=== PATIENT | female | born 1955 | race Caucasian/White ===

== ENCOUNTER → 2020-01-12 16:40 | Outpatient (CLI) | payer OTHER, SELFPAY ==
--- NOTE | ~2020-01-12 | MM_ITS ---
EXAMINATION: MM screening patricia BI w [facility] HISTORY: Screening TECHNIQUE: Craniocaudal and mediolateral oblique 3-D tomosynthesis images were obtained and synthetic 2-D images were generated. CAD analysis was submitted and interpreted. COMPARISON: Comparison to multiple prior studies sequentially, with oldest reviewed study dated 01/31. BREAST PARENCHYMAL COMPOSITION: There are scattered areas of fibroglandular density. FINDINGS: There is no evidence of suspicious mass, calcification, or architectural distortion to sugg est malignancy in either breast. There has been no suspicious interval change. IMPRESSION: 1. No mammographic evidence of malignancy. 2. Recommend routine screening mammography in one year. BI-RADS Category 1: Negative Reviewed, dictated and finalized at location A.
== END ==
PROVIDERS: PCP Family Medicine; Visit Provider Obstetrics & Gynecology Gynecology
DX: Z12.31 Encounter for screening mammogram for malignant neoplasm of breast (principal)
CPT/HCPCS: 77063; 77067

== ENCOUNTER 2021-10-11 16:35 | Inpatient (IN) | payer OTHER, SELFPAY ==
--- NOTE | ~2021-10-11 | XR_ITS ---
EXAMINATION: XR chest 2V 10/11/2021 18:25 INDICATION: Weakness and dyspnea PROCEDURE: 2 view chest COMPARISON: No prior studies for comparison. FINDINGS: The lungs are clear. The cardiomediastinal silhouette is within normal limits. There are no pleural effusions. There is no pneumothorax suspected. IMPRESSION: 1: NO ACUTE CARDIOPULMONARY DISEASE. Reviewed, dictated and finalized at location A.
--- NOTE | ~2021-10-11 | CT_ITS ---
EXAMINATION: CT abdomen pelvis w con DATE: 10/11/2021 21:48 INDICATION: Left back pain. Nausea and chills. Diarrhea. Diverticulosis. TECHNIQUE: Computed tomography (CT) of the abdomen and pelvis was performed with 100 cc Omnipaque 300 intravenous contrast. The dose-length product was 440.99 mGy-cm. Automated exposure control and iter ative reconstruction technique were employed. COMPARISON: CT dated 07/03/2014. FINDINGS: Lung bases are unremarkable. Heart size is normal. No significant pleural or pericardial ef fusion. Mild atherosclerosis of the aorta without aneurysm. No lymphadenopathy. Fatty infiltration of the liver. Gallbladder is present. The spleen, pancreas, adrenal glands are unr emarkable. There is focal cortical thinning of the left kidney posteriorly. There are small low-densi ty lesions in both kidneys, most likely benign cysts. Nonobstructive bowel gas pattern. Colonic diver ticulosis without evidence for diverticulitis. Normal appendix. No free air or free fluid. There is l umbar spondylosis with grade 1 degenerative spondylolisthesis at L4-5. IMPRESSION: 1. No acute abdominal abnormality. Reviewed, dictated and finalized at location A.
--- NOTE | ~2021-10-11 | XR_ITS ---
EXAMINATION: XR abdomen/kub 1V DATE: 10/13/2021 12:22 INDICATION: Nausea and vomiting. TECHNIQUE: A supine view of the abdomen was obtained. COMPARISON: CT abdomen and pelvis 10/11/2021 FINDINGS: There are no dilated loops of bowel. There is a small volume of stool in the colon. IMPRESSION: 1. Normal bowel gas pattern. Reviewed, dictated and finalized at location A.
--- NOTE | ~2021-10-11 | CT_ITS ---
EXAMINATION: CT brain wo con DATE: 10/12/2021 13:27 INDICATION: Dizziness. TECHNIQUE: Computed tomography (CT) of the head was performed without intravenous contrast. The mA wa s adjusted according to patient size. Iterative reconstruction technique was employed. The dose-lengt h product was 605.33 mGy-cm. COMPARISON: None FINDINGS: There is no intracranial hemorrhage, acute infarction, or abnormal intracranial mass lesion . The ventricles are normal in size. The orbits are normal. The paranasal sinuses are clear. The mast oid air cells are normal. IMPRESSION: 1. Normal brain. Reviewed, dictated and finalized at location A. IMPRESSION: 1. Normal brain.
--- NOTE | ~2021-10-11 | US_ITS ---
EXAMINATION: US carotid duplex BI DATE: 10/12/2021 12:09 INDICATION: Vertigo TECHNIQUE: Grayscale, color Doppler, and pulsed Doppler images of the cervical carotid arteries were obtained. The degree of vessel stenosis is placed in one of the following categories: normal, <50%, 5 0-69%, >=70% but less than near-occlusion, near-occlusion, or total occlusion. Note that percent sten osis relative to normal distal artery lumen diameter is indirectly measured from velocity measurement s as described by Rashard, et al. Radiology 2003; 229:340-346. COMPARISON: None. FINDINGS: RIGHT: The right common carotid artery (CCA) peak systolic velocity (PSV) is 82 cm/s. The right internal car otid artery (ICA) PSV is 71 cm/s. The right ICA end-diastolic velocity (EDV) is 27 cm/s. The right IC A/CCA PSV ratio is 0.9. Grayscale and color Doppler images yield an estimate of <50% diameter reducti on from plaque in the ICA. The external carotid artery (ECA) PSV is 76 cm/s. There is antegrade flow in the right vertebral artery. LEFT: The left CCA PSV is 121 cm/s. 50-69% stenosis in the left common carotid artery on grayscale imaging. The left ICA PSV is 101 cm/s. The left ICA EDV is 32 cm/s. The left ICA/CCA PSV ratio is 0.8. Graysc kenny and color Doppler images yield an estimate of <50% diameter reduction from plaque in the ICA. The ECA PSV is 68 cm/s. There is antegrade flow in the left vertebral artery. IMPRESSION: 1. <50% stenosis in the right internal carotid artery. 2. <50% stenosis in the left internal carotid artery. 3. 50-69% stenosis in the left common carotid artery. Reviewed, dictated and finalized at location B.
[2021-10-11 17:00] VITALS: BP 98/60; PULSE 54; RESP 14; TEMP 36.9; O2SAT 100
--- NOTE | 2021-10-11 17:45 | PM.IMHP ---
H&P: HPI History of Present Illness Date/Time: 10/11/21 17:45 Chief Complaint: Back pain and weakness Narrative: Patient is 65-year-old female with a past medical history of asthma, CAD, DVT, diverticulosis who presented to the urology office for left-sided flank pain. Patient was a direct admit to us for hypotension. Patient has been moving herself from [address] [place] [address] to [place] however lately she has been having issues where she feels like she is going to pass out and she can not stand or bend over. She went to the ED at [facility] and they had sent her home on Keflex. They did the chest x-ray and a UA which did show an E coli. Patient also stated that it was noted that her systolic blood pressure went below 100. She stated for her blood pressure they gave her 1 bag of fluids. However she was not satisfied with that treatment and followed up with Urology due to the continuous of the back pain. She stated that she drinks lot of water however her appetite has been really liking and she has been very nauseated and dry heaving. She states that she has been using Zofran however that has not been helping. She has had the feelings she is going to pass out and gets very lightheaded and dizzy and then a headache comes on. She has also been having chills and sweats unknown if she has a fever due to the fact that she is moving. She has been a little short of breath and she has had since about of diarrhea. She stated that she has had back issues in the past however this kind of pain is different. She also takes Keflex she states daily for chronic bleeding bladder or chronic UTI. She denies any chest pain. She also states that she feels very weak however she denies any fatigue. She also states that she has urgency or frequency when she urinates. Patient is being admitted as observation to the hospitalist service Review of Systems Review of Systems: All systems reviewed & are unremarkable except as noted in HPI and below [facility] Past Medical History Medical History (Updated 10/11/21 @ 21:25 by ISSA Morgan) Afib Anxiety Asthma CAD (coronary artery disease) Diabetes DVT (deep venous thrombosis) Hyperlipidemia Hypertension Hypothyroidism Renal cyst SVT (supraventricular tachycardia) Surgical History Surgical History (Updated 10/11/21 @ 21:16 by ISSA Morgan) History of cardiac catheterization Status post coronary artery stent placement Family History Family History (Updated 10/11/21 @ 21:18 by ISSA Morgan) Father Acute myocardial infarction Heart disease Hypertension Hyperlipidemia Sibling Carotid artery stenosis Mother Lymphoma Social History Social History Social History: Patient lives on her own with her 1 cat. She wants her knees Holli Miles who is a doctor in [place] to be her surrogate she has 1 sister alive. 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 Gender identity (if verbalized by the patient): Female Sexual Orientation (if Verbalized by the Patient): Straight or Heterosexual Spiritual care concerns: No Agree to blood products: Yes Meds Home Medications and Allergies Home Medications Medication Instructions Recorded Confirmed Type Lactobacillus acidophilus 1 tablet PO DAILY 10/11/21 10/11/21 History albuterol 90 mcg/actuation aerosol 90 mcg inhalation Q4H PRN 10/11/21 10/11/21 History inhaler Shortness Of Breath alprazolam 0.5 mg tablet 0.5 mg PO QHS PRN Anxiety 10/11/21 10/11/21 History aspirin 81 mg tablet,delayed 1 tablet PO DAILY 10/11/21 10/11/21 History release beclomethasone dipropionate 40 2 inh inhalation BID 10/11/21 10/11/21 History mcg
[2021-10-11] MEDS: SODIUM CHLORIDE 0.9% IV 1,000 ML 100 ML IV CONT (18:12)
[2021-10-11 19:10] LABS: Lactic Acid Reflex 1.2 mmol/L (0.7-2.0)
[2021-10-11 19:15] LABS: Alanine Aminotransferase 33 U/L (6-35); Albumin Level 4.4 g/dL (3.5-5.1); Alkaline Phosphatase 54 U/L (38-126); Anion Gap 12 mmol/L (8-16); Aspartate Amino Transferase 45 U/L (14-36); Bilirubin,Total 1.1 mg/dL (0.2-1.3); Blood Urea Nitrogen 30 mg/dL (7-17); Calcium 9.2 mg/dL (8.4-10.2); Carbon Dioxide 23 mmol/L (22-30); Chloride 102 mmol/L (98-107); Estimated Glomerular Filt Rate 41; Glucose 128 mg/dL (65-110); Magnesium 1.9 mg/dL (1.6-2.3); Potassium 2.7 mmol/L (3.4-5.0); Sodium 137 mmol/L (137-145)
[2021-10-11 19:59] VITALS: BMI 26.2
[2021-10-11 20:00] VITALS: BP 107/54; PULSE 57; PULSE 61; RESP 16; TEMP 36.7; O2SAT 99; BMI 26.2
[2021-10-11 20:27] LABS: Appearance Urine Clear (Clear); Bilirubin Urine Negative (Negative); Blood Urine 1+ (Negative); Color Urine Yellow (Yellow); Glucose Urine UA 2+ mg/dL (Negative); Ketones Urine Negative (Negative); Leukocyte Esterase Ur Negative LEU/UL (Negative); Nitrate Urine Negative (Negative); Protein Urine 1+ mg/dL (Negative); Urobilinogen Urine 0.2 mg/dL (<2.0); pH Urine 6.5 (5.0-9.0)
[2021-10-11 20:30] LABS: RBC Urine 0-2 /hpf (0-2); WBC Urine 0-3 /hpf
[2021-10-11 20:34] LABS: Add Urine Microscopic? YES
[2021-10-11] MEDS: POTASSIUM CHLORIDE INJ 40 MEQ in SODIUM CHLORIDE 0.9% IV 500 ML 130 MEQ IVPB (21:59)
[2021-10-11] MEDS: POTASSIUM CHLORIDE 20 MEQ TABLET 40 MEQ PO (22:02)
[2021-10-11] MEDS: methocarbamoL 500 MG TABLET PO (22:32)
[2021-10-11] MEDS: MONTELUKAST SODIUM 10 MG TABLET PO (22:32)
[2021-10-11] MEDS: GABAPENTIN 100 MG CAPSULE PO (22:33)
[2021-10-11 22:57] VITALS: BP 96/51; PULSE 63; RESP 16; TEMP 36.7; O2SAT 96
[2021-10-12] VITALS (18 sets, daily range): BP systolic 78–121; BP diastolic 51–62; PULSE 62–76; RESP 12–20; TEMP 36.1–36.8; O2SAT 96–98; BMI 26.2
[2021-10-12] MEDS: SODIUM CHLORIDE 0.9% IV 1,000 ML 100 ML IV CONT ×3 (05:33→20:26)
[2021-10-12 05:45] LABS: Basophils Absolute Auto 0.1 K/mm3 (0.0-0.1); Basophils Percent Auto 0.9 % (0.2-1.2); Eosinophils Absolute Auto 0.1 K/mm3 (0-0.3); Eosinophils Percent Auto 1.7 % (0-4.4); Hematocrit 37.4 % (37.0-47.0); Hemoglobin 12.7 g/dL (12.0-15.0); Immature Granulocyte Absolute 0.03 K/mm3 (0.00-0.031); Immature Granulocyte Percent A 0.4 % (0-0.5); Lymphocytes Absolute Auto 2.15 K/mm3 (0.9-3.2); Lymphocytes Percent Auto 31.1 % (18.3-44.2); Mean Corpuscular Hemoglobin 32.5 pg (26-34); Mean Corpuscular Volume 95.7 fl (80-100); Mean Platelet Volume 9.7 fl (7.4-10.4); Monocytes Absolute Auto 0.6 K/mm3 (0.1-0.6); Monocytes Percent Auto 8.5 % (2.6-8.5); Neutrophils Percent Auto 57.4 % (45.5-73.1); Platelet Count Result 237 k/mm3 (150-375); Red Blood Count 3.91 M/mm3 (4.2-5.4); Red Cell Distribution Width 13.2 % (11.5-14.5); White Blood Count 6.9 K/mm3 (4.5-10.0)
[2021-10-12 05:58] LABS: Alanine Aminotransferase 29 U/L (6-35); Albumin Level 3.6 g/dL (3.5-5.1); Alkaline Phosphatase 45 U/L (38-126); Anion Gap 5 mmol/L (8-16); Aspartate Amino Transferase 44 U/L (14-36); Bilirubin,Total 0.6 mg/dL (0.2-1.3); Blood Urea Nitrogen 22 mg/dL (7-17); Calcium 8.3 mg/dL (8.4-10.2); Carbon Dioxide 23 mmol/L (22-30); Chloride 109 mmol/L (98-107); Estimated CRCL calculation 42 ml/min; Estimated Glomerular Filt Rate 56; Glucose 107 mg/dL (65-110); Potassium 3.4 mmol/L (3.4-5.0); Sodium 137 mmol/L (137-145)
[2021-10-12] MEDS: LEVOTHYROXINE SODIUM 75 MCG TABLET PO (05:59)
[2021-10-12] MEDS: GABAPENTIN 100 MG CAPSULE PO ×2 (08:06→16:09)
[2021-10-12] MEDS: POTASSIUM CHLORIDE 20 MEQ TABLET 40 MEQ PO (08:07)
[2021-10-12] MEDS: VITAMIN E 400 UNIT CAPSULE PO (08:07)
[2021-10-12] MEDS: ACIDOPHILUS/BULGARICUS CHEWABLE TABLET 1 TABLET PO (08:07)
[2021-10-12] MEDS: ROSUVASTATIN 10 MG TABLET 40 MG PO (08:07)
[2021-10-12] MEDS: valACYclovir HCL 500 MG TABLET PO (08:08)
[2021-10-12] MEDS: LORATADINE 10 MG TABLET PO (08:08)
[2021-10-12] MEDS: methocarbamoL 500 MG TABLET PO ×4 (08:08→20:26)
[2021-10-12] MEDS: ASPIRIN 81 MG ENTERIC TABLET PO (08:08)
[2021-10-12] MEDS: ENOXAPARIN 40 MG/0.4 ML SYRINGE SUB-Q (08:09)
[2021-10-12] MEDS: CHOLECALCIFEROL 1,000 UNITS TABLET 2000 UNITS PO (08:09)
[2021-10-12] MEDS: CLOPIDOGREL BISULFATE 75 MG TABLET PO (08:09)
[2021-10-12] MEDS: FLUTICASONE PROPIONATE 0.05% NA SPR 16 GM BTL (*BKC) 2 SPRAY NASAL (08:55)
--- NOTE | 2021-10-12 10:17 | ECG_ITS ---
Measurements Intervals [place] Rate: 64 P: 44 KS: 172 QRS: 16 QRSD: 96 T: 15 QT: 400 QTc: 413 Interpretive Statements SINUS RHYTHM NORMAL ECG Electronically Signed On 10-12-2021 12:58:52 CDT by Dajuan Gray D.O.
--- NOTE | 2021-10-12 11:16 | PCNSR ---
On 10/12/21, the student, Adela Rick, provided care and completed [facility] documentation on this patient. I have reviewed the student's documentation and agree with the findings.
--- NOTE | 2021-10-12 11:30 | P.PNIM_ITS ---
Progress Note: A&P Assessment and Plan (1) Left flank pain: Code(s): R10.9 - Unspecified abdominal pain Status: Acute Assessment and Plan: * CT of the abdomen pelvis no acute abdominal abnormality * Blood noted in the ua * Consider consulting Urology * Trend urine output (2) UTI (urinary tract infection): Code(s): N39.0 - Urinary tract infection, site not specified Status: Acute Assessment and Plan: * E coli noted to be going in UA from [place] * Ceftriaxone on board * UA from [facility] does not appear infectious * Repeat UA with culture pending * Tailor antibiotics to culture results (3) Hypotension: Code(s): I95.9 - Hypotension, unspecified Status: Acute Assessment and Plan: * Blood pressure 90 systolically * Currently BP is 99/55 * IV fluids given * Sodium chloride at 100 mils per hour * Trend blood pressure * Hold antihypertensives * Adjust therapy as indicated * Orthostatic BP laying 97/51, Sitting 78/52, Standing 82/51 (4) Hypokalemia: Code(s): E87.6 - Hypokalemia Status: Acute Assessment and Plan: * Potassium 3.4 today * 40 p.o. supplement repeated * Trend labs * Supplement is indicated (5) Diabetes: Code(s): E11.9 - Type 2 diabetes mellitus without complications Status: Acute Assessment and Plan: * Current glucose 107 * Accu-Cheks AC and HS * Diabetic diet * Insulin sliding scale * Trend glucose * Adjust therapy as indicated (6) Hypertension: Code(s): I10 - Essential (primary) hypertension Status: Acute Assessment and Plan: * Currently hypotensive * IV fluids * Antihypertensives on hold * Restart antihypertensive when appropriate * Trend blood pressure * Adjust therapy as indicated (7) Hyperlipidemia: Code(s): E78.5 - Hyperlipidemia, unspecified Status: Acute Assessment and Plan: * Continue home rosuvastatin * LFT remain stable at 44/29 (8) CAD (coronary artery disease): Code(s): I25.10 - Atherosclerotic heart disease of [place] coronary artery without angina pectoris Status: Acute Assessment and Plan: * Known coronary artery disease with stent placement * Continue aspirin * Restart plavix at this time with no stones noted * No chest pain noted * Tele monitor (9) Asthma: Code(s): J45.909 - Unspecified asthma, uncomplicated Status: Acute Assessment and Plan: * Continue home medications * Trend respiratory status * Adjust therapy as indicated (10) Orthostatic hypotension: Code(s): I95.1 - Orthostatic hypotension Status: Acute Assessment and Plan: * Blood pressure lying is 97/51, sitting 78/52, standing 82/51 * Continue to hold antihypertensives this time * Continue IV fluids, give 1 L bolus * Consider starting midodrine * Instruct patient about slow position changes * Carotid Dopplers pending * EKG shows sinus rhythm * CT of the brain ordered Time Spent With Patient Time with patient: Greater than 35 minutes Subjective Date/time seen: 10/12/21 113 Interval history: 10/12/211129 Patient stated that she is tired today. She did state that she was eating more and she w
--- NOTE | 2021-10-12 11:30 | PM.IMPN ---
Progress Note: A&P Assessment and Plan (1) Left flank pain: Code(s): R10.9 - Unspecified abdominal pain Status: Acute Assessment and Plan: CT of the abdomen pelvis no acute abdominal abnormality Blood noted in the ua Consider consulting Urology Trend urine output (2) UTI (urinary tract infection): Code(s): N39.0 - Urinary tract infection, site not specified Status: Acute Assessment and Plan: E coli noted to be going in UA from [place] Ceftriaxone on board UA from here does not appear infectious Repeat UA with culture pending Tailor antibiotics to culture results (3) Hypotension: Code(s): I95.9 - Hypotension, unspecified Status: Acute Assessment and Plan: Blood pressure 90 systolically Currently BP is 99/55 IV fluids given Sodium chloride at 100 mils per hour Trend blood pressure Hold antihypertensives Adjust therapy as indicated Orthostatic BP laying 97/51, Sitting 78/52, Standing 82/51 (4) Hypokalemia: Code(s): E87.6 - Hypokalemia Status: Acute Assessment and Plan: Potassium 3.4 today 40 p.o. supplement repeated Trend labs Supplement is indicated (5) Diabetes: Code(s): E11.9 - Type 2 diabetes mellitus without complications Status: Acute Assessment and Plan: Current glucose 107 Accu-Cheks AC and HS Diabetic diet Insulin sliding scale Trend glucose Adjust therapy as indicated (6) Hypertension: Code(s): I10 - Essential (primary) hypertension Status: Acute Assessment and Plan: Currently hypotensive IV fluids Antihypertensives on hold Restart antihypertensive when appropriate Trend blood pressure Adjust therapy as indicated (7) Hyperlipidemia: Code(s): E78.5 - Hyperlipidemia, unspecified Status: Acute Assessment and Plan: Continue home rosuvastatin LFT remain stable at 44/29 (8) CAD (coronary artery disease): Code(s): I25.10 - Atherosclerotic heart disease of [place] coronary artery without angina pectoris Status: Acute Assessment and Plan: Known coronary artery disease with stent placement Continue aspirin Restart plavix at this time with no stones noted No chest pain noted Tele monitor (9) Asthma: Code(s): J45.909 - Unspecified asthma, uncomplicated Status: Acute Assessment and Plan: Continue home medications Trend respiratory status Adjust therapy as indicated (10) Orthostatic hypotension: Code(s): I95.1 - Orthostatic hypotension Status: Acute Assessment and Plan: Blood pressure lying is 97/51, sitting 78/52, standing 82/51 Continue to hold antihypertensives this time Continue IV fluids, give 1 L bolus Consider starting midodrine Instruct patient about slow position changes Carotid Dopplers pending EKG shows sinus rhythm CT of the brain ordered Time Spent With Patient Time with patient: Greater than 35 minutes Subjective Date/time seen: 10/12/21 1130 Interval history: 10/12/21 1130 Patient stated that she is tired today. She did state that she was eating more and she was having some gas. She thought she was in have a bout of diarrhea however she has not. She stated state that she was urinating okay. Her back pain is better she did have a rough time this morning however does seem to be resolving. She has no complaints of chest pain, shortness of breath and is concerned about getting her beta-sydnee. Orthostatic blood pressures did show positive for orthostatic hypotension. Antihypertensives are still on hold at this time. 10/11/21? 17:45 Patient is 65-year-old female with a past medical history of asthma, CAD, DVT, diverticulosis who presented to the urology office for left-sided flank pain.? Patient was a direct admit to us for hypotension.? Pat
[2021-10-12] MEDS: MONTELUKAST SODIUM 10 MG TABLET PO (20:26)
[2021-10-12 21:23] LABS: Glucose Point of Care 181 mg/dl (65-105)
[2021-10-13] VITALS (18 sets, daily range): BP systolic 103–138; BP diastolic 54–71; PULSE 54–87; RESP 12–20; TEMP 36.4–36.6; O2SAT 97–100
[2021-10-13] MEDS: LEVOTHYROXINE SODIUM 75 MCG TABLET PO (05:41)
[2021-10-13 06:41] LABS: Basophils Absolute Auto 0.1 K/mm3 (0.0-0.1); Basophils Percent Auto 1.1 % (0.2-1.2); Eosinophils Absolute Auto 0.1 K/mm3 (0-0.3); Eosinophils Percent Auto 2.1 % (0-4.4); Hematocrit 39.3 % (37.0-47.0); Hemoglobin 12.5 g/dL (12.0-15.0); Immature Granulocyte Absolute 0.03 K/mm3 (0.00-0.031); Immature Granulocyte Percent A 0.5 % (0-0.5); Lymphocytes Absolute Auto 1.95 K/mm3 (0.9-3.2); Lymphocytes Percent Auto 29.7 % (18.3-44.2); Mean Corpuscular HGB Conc 31.8 g/dl (32-36); Mean Corpuscular Hemoglobin 32.7 pg (26-34); Mean Corpuscular Volume 102.9 fl (80-100); Mean Platelet Volume 9.6 fl (7.4-10.4); Monocytes Absolute Auto 0.6 K/mm3 (0.1-0.6); Monocytes Percent Auto 9.1 % (2.6-8.5); Neutrophils Absolute Auto 3.8 K/mm3 (1.3-6.7); Neutrophils Percent Auto 57.5 % (45.5-73.1); Nucleated Red Blood Cells Perc 0.3 % (0.0-0.2); Platelet Count Result 214 k/mm3 (150-375); Red Blood Count 3.82 M/mm3 (4.2-5.4); Red Cell Distribution Width 13.2 % (11.5-14.5); White Blood Count 6.6 K/mm3 (4.5-10.0)
[2021-10-13 07:06] LABS: Alanine Aminotransferase 36 U/L (6-35); Albumin Level 3.2 g/dL (3.5-5.1); Alkaline Phosphatase 44 U/L (38-126); Anion Gap 2 mmol/L (8-16); Aspartate Amino Transferase 39 U/L (14-36); Bilirubin,Total 0.5 mg/dL (0.2-1.3); Blood Urea Nitrogen 18 mg/dL (7-17); Calcium 8.1 mg/dL (8.4-10.2); Carbon Dioxide 22 mmol/L (22-30); Chloride 113 mmol/L (98-107); Estimated CRCL calculation 52 ml/min; Estimated Glomerular Filt Rate > 60; Glucose 131 mg/dL (65-110); Magnesium 1.9 mg/dL (1.6-2.3); Potassium 3.6 mmol/L (3.4-5.0); Sodium 137 mmol/L (137-145)
[2021-10-13] MEDS: methocarbamoL 500 MG TABLET PO ×4 (08:49→20:43)
[2021-10-13] MEDS: valACYclovir HCL 500 MG TABLET PO (08:49)
[2021-10-13] MEDS: ASPIRIN 81 MG ENTERIC TABLET PO (08:49)
[2021-10-13] MEDS: CLOPIDOGREL BISULFATE 75 MG TABLET PO (08:49)
[2021-10-13] MEDS: LORATADINE 10 MG TABLET PO (08:49)
[2021-10-13] MEDS: ACIDOPHILUS/BULGARICUS CHEWABLE TABLET 1 TABLET PO (08:49)
[2021-10-13] MEDS: VITAMIN E 400 UNIT CAPSULE PO (08:49)
[2021-10-13] MEDS: ROSUVASTATIN 10 MG TABLET 40 MG PO (08:49)
[2021-10-13] MEDS: GABAPENTIN 100 MG CAPSULE PO ×2 (08:49→16:26)
[2021-10-13] MEDS: FLUTICASONE PROPIONATE 0.05% NA SPR 16 GM BTL (*BKC) 2 SPRAY NASAL (08:50)
[2021-10-13] MEDS: CHOLECALCIFEROL 1,000 UNITS TABLET 2000 UNITS PO (08:50)
[2021-10-13] MEDS: ENOXAPARIN 40 MG/0.4 ML SYRINGE SUB-Q (08:50)
--- NOTE | 2021-10-13 09:30 | PM.IMPN ---
Progress Note: A&P Assessment and Plan (1) Left flank pain: Code(s): R10.9 - Unspecified abdominal pain Status: Acute Assessment and Plan: CT of the abdomen pelvis no acute abdominal abnormality Blood noted in the ua Consider consulting Urology Trend urine output Looks to be getting better (2) UTI (urinary tract infection): Code(s): N39.0 - Urinary tract infection, site not specified Status: Acute Assessment and Plan: E coli noted to be going in UA from [place] Ceftriaxone on board UA from [facility] does not appear infectious Repeat UA with culture continues to pend Tailor antibiotics to culture results (3) Hypotension: Code(s): I95.9 - Hypotension, unspecified Status: Acute Assessment and Plan: Blood pressure 90 systolically Currently BP is 113/56 IV fluids given Sodium chloride at 100 mils per hour Trend blood pressure Hold antihypertensives Adjust therapy as indicated Orthostatic BP laying 106/54, Sitting 103/56, Standing 110/64 seems to be improving with fluids (4) Hypokalemia: Code(s): E87.6 - Hypokalemia Status: Acute Assessment and Plan: Potassium 3.6 today no supplement indicated today Trend labs Supplement is indicated (5) Diabetes: Code(s): E11.9 - Type 2 diabetes mellitus without complications Status: Acute Assessment and Plan: Current glucose 131 Accu-Cheks AC and HS Diabetic diet Insulin sliding scale Trend glucose Adjust therapy as indicated (6) Hypertension: Code(s): I10 - Essential (primary) hypertension Status: Acute Assessment and Plan: Currently hypotensive IV fluids Antihypertensives on hold Restart antihypertensive when appropriate Trend blood pressure Adjust therapy as indicated (7) Hyperlipidemia: Code(s): E78.5 - Hyperlipidemia, unspecified Status: Acute Assessment and Plan: Continue home rosuvastatin LFT remain stable at 39/36 (8) CAD (coronary artery disease): Code(s): I25.10 - Atherosclerotic heart disease of [place] coronary artery without angina pectoris Status: Acute Assessment and Plan: Known coronary artery disease with stent placement Continue aspirin Restart plavix at this time with no stones noted No chest pain noted Tele monitor (9) Asthma: Code(s): J45.909 - Unspecified asthma, uncomplicated Status: Acute Assessment and Plan: Continue home medications Trend respiratory status Adjust therapy as indicated (10) Orthostatic hypotension: Code(s): I95.1 - Orthostatic hypotension Status: Acute Assessment and Plan: Blood pressure lying is lying 106/54, sitting 103/56, standing 110/64 Continue to hold antihypertensives this time Continue IV fluids Instruct patient about slow position changes Carotid Dopplers <50% stenosis bilaterally right and left internal carotid artery, and 50-69% in the left common artery She has a long history of arterial disease in her family, will have her follow up outpt. EKG shows sinus rhythm CT of the brain normal brain (11) Nausea, vomiting and diarrhea: Code(s): R11.2 - Nausea with vomiting, unspecified; R19.7 - Diarrhea, unspecified Status: Acute Assessment and Plan: CT abd did not have any findings KUB ordered Zofran ordered PRN Protonix Could be from recent Ibuprofen usage Time Spent With Patient Time with patient: Greater than 35 minutes Subjective Date/time seen: 10/13/21929 Interval history: 10/13/21929 Patient stated that she is not doing very well today. She stated that she is not able to hold anything down is still very nauseous. She also stated that she still has back pain however does seem to be getting better. She is also complaining of the
--- NOTE | 2021-10-13 09:30 | P.PNIM_ITS ---
Progress Note: A&P Assessment and Plan (1) Left flank pain: Code(s): R10.9 - Unspecified abdominal pain Status: Acute Assessment and Plan: * CT of the abdomen pelvis no acute abdominal abnormality * Blood noted in the ua * Consider consulting Urology * Trend urine output * Looks to be getting better (2) UTI (urinary tract infection): Code(s): N39.0 - Urinary tract infection, site not specified Status: Acute Assessment and Plan: * E coli noted to be going in UA from [place] * Ceftriaxone on board * UA from [facility] does not appear infectious * Repeat UA with culture continues to pend * Tailor antibiotics to culture results (3) Hypotension: Code(s): I95.9 - Hypotension, unspecified Status: Acute Assessment and Plan: * Blood pressure 90 systolically * Currently BP is 113/56 * IV fluids given * Sodium chloride at 100 mils per hour * Trend blood pressure * Hold antihypertensives * Adjust therapy as indicated * Orthostatic BP laying 106/54, Sitting 103/56, Standing 110/64 * seems to be improving with fluids (4) Hypokalemia: Code(s): E87.6 - Hypokalemia Status: Acute Assessment and Plan: * Potassium 3.6 today * no supplement indicated today * Trend labs * Supplement is indicated (5) Diabetes: Code(s): E11.9 - Type 2 diabetes mellitus without complications Status: Acute Assessment and Plan: * Current glucose 131 * Accu-Cheks AC and HS * Diabetic diet * Insulin sliding scale * Trend glucose * Adjust therapy as indicated (6) Hypertension: Code(s): I10 - Essential (primary) hypertension Status: Acute Assessment and Plan: * Currently hypotensive * IV fluids * Antihypertensives on hold * Restart antihypertensive when appropriate * Trend blood pressure * Adjust therapy as indicated (7) Hyperlipidemia: Code(s): E78.5 - Hyperlipidemia, unspecified Status: Acute Assessment and Plan: * Continue home rosuvastatin * LFT remain stable at 39/36 (8) CAD (coronary artery disease): Code(s): I25.10 - Atherosclerotic heart disease of [place] coronary artery without angina pectoris Status: Acute Assessment and Plan: * Known coronary artery disease with stent placement * Continue aspirin * Restart plavix at this time with no stones noted * No chest pain noted * Tele monitor (9) Asthma: Code(s): J45.909 - Unspecified asthma, uncomplicated Status: Acute Assessment and Plan: * Continue home medications * Trend respiratory status * Adjust therapy as indicated (10) Orthostatic hypotension: Code(s): I95.1 - Orthostatic hypotension Status: Acute Assessment and Plan: * Blood pressure lying is lying 106/54, sitting 103/56, standing 110/64 * Continue to hold antihypertensives this time * Continue IV fluids * Instruct patient about slow position changes * Carotid Dopplers <50% stenosis bilaterally right and left internal carotid artery, and 50-69% in the left common artery * She has a long history of arterial disease in her family, will have her follow up outpt. * EKG shows sinus rhythm * CT of the brain normal brain (11) Nausea, vomiting and
[2021-10-13] MEDS: PANTOPRAZOLE SODIUM IV 40 MG VIAL IV PUSH ×2 (10:41→20:43)
[2021-10-13] MEDS: SODIUM CHLORIDE 0.9% IV 1,000 ML 100 ML IV CONT ×2 (10:41→21:06)
[2021-10-13] MEDS: MONTELUKAST SODIUM 10 MG TABLET PO (20:44)
[2021-10-14] VITALS (17 sets, daily range): BP systolic 114–143; BP diastolic 59–73; PULSE 58–98; RESP 18–99; TEMP 36.2–36.7; O2SAT 20–100
[2021-10-14 05:40] LABS: Basophils Absolute Auto 0.1 K/mm3 (0.0-0.1); Basophils Percent Auto 0.9 % (0.2-1.2); Eosinophils Absolute Auto 0.2 K/mm3 (0-0.3); Eosinophils Percent Auto 3.4 % (0-4.4); Hematocrit 36.3 % (37.0-47.0); Hemoglobin 12.5 g/dL (12.0-15.0); Immature Granulocyte Absolute 0.04 K/mm3 (0.00-0.031); Immature Granulocyte Percent A 0.6 % (0-0.5); Lymphocytes Absolute Auto 2.05 K/mm3 (0.9-3.2); Lymphocytes Percent Auto 30.4 % (18.3-44.2); Mean Corpuscular HGB Conc 34.4 g/dl (32-36); Mean Corpuscular Hemoglobin 32.8 pg (26-34); Mean Corpuscular Volume 95.3 fl (80-100); Mean Platelet Volume 9.8 fl (7.4-10.4); Monocytes Absolute Auto 0.5 K/mm3 (0.1-0.6); Monocytes Percent Auto 7.9 % (2.6-8.5); Neutrophils Absolute Auto 3.8 K/mm3 (1.3-6.7); Neutrophils Percent Auto 56.8 % (45.5-73.1); Platelet Count Result 213 k/mm3 (150-375); Red Blood Count 3.81 M/mm3 (4.2-5.4); Red Cell Distribution Width 13.1 % (11.5-14.5); White Blood Count 6.7 K/mm3 (4.5-10.0)
[2021-10-14 05:47] LABS: Alanine Aminotransferase 30 U/L (6-35); Alkaline Phosphatase 41 U/L (38-126); Anion Gap 4 mmol/L (8-16); Aspartate Amino Transferase 27 U/L (14-36); Bilirubin,Total 0.4 mg/dL (0.2-1.3); Blood Urea Nitrogen 10 mg/dL (7-17); Calcium 7.8 mg/dL (8.4-10.2); Carbon Dioxide 22 mmol/L (22-30); Chloride 114 mmol/L (98-107); Estimated CRCL calculation 59 ml/min; Estimated Glomerular Filt Rate > 60; Glucose 134 mg/dL (65-110); Magnesium 1.6 mg/dL (1.6-2.3); Potassium 3.8 mmol/L (3.4-5.0); Sodium 140 mmol/L (137-145)
[2021-10-14] MEDS: LEVOTHYROXINE SODIUM 75 MCG TABLET PO (06:33)
[2021-10-14] MEDS: SODIUM CHLORIDE 0.9% IV 1,000 ML 100 ML IV CONT (06:33)
[2021-10-14] MEDS: FLUTICASONE PROPIONATE 0.05% NA SPR 16 GM BTL (*BKC) 2 SPRAY NASAL (08:11)
[2021-10-14] MEDS: CHOLECALCIFEROL 1,000 UNITS TABLET 2000 UNITS PO (08:12)
[2021-10-14] MEDS: PANTOPRAZOLE SODIUM IV 40 MG VIAL IV PUSH ×2 (08:12→20:44)
[2021-10-14] MEDS: ROSUVASTATIN 10 MG TABLET 40 MG PO (08:12)
[2021-10-14] MEDS: LORATADINE 10 MG TABLET PO (08:13)
[2021-10-14] MEDS: ACIDOPHILUS/BULGARICUS CHEWABLE TABLET 1 TABLET PO (08:13)
[2021-10-14] MEDS: ENOXAPARIN 40 MG/0.4 ML SYRINGE SUB-Q (08:13)
[2021-10-14] MEDS: ASPIRIN 81 MG ENTERIC TABLET PO (08:13)
[2021-10-14] MEDS: methocarbamoL 500 MG TABLET PO ×4 (08:13→20:44)
[2021-10-14] MEDS: VITAMIN E 400 UNIT CAPSULE PO (08:13)
[2021-10-14] MEDS: GABAPENTIN 100 MG CAPSULE PO ×2 (08:13→16:03)
[2021-10-14] MEDS: CLOPIDOGREL BISULFATE 75 MG TABLET PO (08:13)
[2021-10-14] MEDS: valACYclovir HCL 500 MG TABLET PO (08:13)
[2021-10-14] MEDS: MAGNESIUM SULF 4 GM/WATER100ML 4 GM/100 ML BAG IVPB (09:48)
--- NOTE | 2021-10-14 13:00 | PM.IMPN ---
Progress Note: A&P Assessment and Plan (1) Left flank pain: Code(s): R10.9 - Unspecified abdominal pain Status: Acute Assessment and Plan: CT of the abdomen pelvis no acute abdominal abnormality Blood noted in the ua Consider consulting Urology Trend urine output Looks to be getting better (2) UTI (urinary tract infection): Code(s): N39.0 - Urinary tract infection, site not specified Status: Acute Assessment and Plan: E coli noted to be going in UA from [place] Ceftriaxone on board and susceptible, will give patient a total of 5 doses UA from here does not appear infectious Repeat UA with culture shows no growth Tailor antibiotics to culture results (3) Hypotension: Code(s): I95.9 - Hypotension, unspecified Status: Acute Assessment and Plan: Blood pressure 90 systolically Currently BP is 114/73 IV fluids given Sodium chloride at 100 mils per hour, DC for now Trend blood pressure Restarted candesartan and bisoprolol Adjust therapy as indicated Orthostatic BP laying 124/60, Sitting 130/72, Standing 114/73 seems to be improving with fluids (4) Hypokalemia: Code(s): E87.6 - Hypokalemia Status: Acute Assessment and Plan: Potassium 3.8 today no supplement indicated today Trend labs Supplement is indicated (5) Diabetes: Code(s): E11.9 - Type 2 diabetes mellitus without complications Status: Acute Assessment and Plan: Current glucose 134 Accu-Cheks AC and HS Diabetic diet Insulin sliding scale Trend glucose Adjust therapy as indicated (6) Hypertension: Code(s): I10 - Essential (primary) hypertension Status: Acute Assessment and Plan: Seems to be normalizing IV fluids Antihypertensives slowly restarted especially since the help with heart failure continue to hold HCTZ and imdur Trend blood pressure Adjust therapy as indicated (7) Hyperlipidemia: Code(s): E78.5 - Hyperlipidemia, unspecified Status: Acute Assessment and Plan: Continue home rosuvastatin LFT remain stable at 39/36 (8) CAD (coronary artery disease): Code(s): I25.10 - Atherosclerotic heart disease of [place] coronary artery without angina pectoris Status: Acute Assessment and Plan: Known coronary artery disease with stent placement Continue aspirin Restart plavix at this time with no stones noted No chest pain noted Tele monitor (9) Asthma: Code(s): J45.909 - Unspecified asthma, uncomplicated Status: Acute Assessment and Plan: Continue home medications Trend respiratory status Adjust therapy as indicated (10) Orthostatic hypotension: Code(s): I95.1 - Orthostatic hypotension Status: Acute Assessment and Plan: Seems to be resolving Blood pressure lying is lying 124/60, sitting 130/72, standing 114/73 Continue to hold antihypertensives this time Continue IV fluids Instruct patient about slow position changes Carotid Dopplers <50% stenosis bilaterally right and left internal carotid artery, and 50-69% in the left common artery She has a long history of arterial disease in her family, will have her follow up outpt. EKG shows sinus rhythm CT of the brain normal brain (11) Nausea, vomiting and diarrhea: Code(s): R11.2 - Nausea with vomiting, unspecified; R19.7 - Diarrhea, unspecified Status: Acute Assessment and Plan: CT abd did not have any findings KUB ordered Zofran ordered PRN Protonix Could be from recent Ibuprofen usage (12) Dizziness: Code(s): R42 - Dizziness and giddiness Status: Acute Assessment and Plan: Ear on right looks to have a wax build up Meclizine ordered Trend symptoms Educated about slow movement and position changes Debrox
--- NOTE | 2021-10-14 13:00 | P.PNIM_ITS ---
Progress Note: A&P Assessment and Plan (1) Left flank pain: Code(s): R10.9 - Unspecified abdominal pain Status: Acute Assessment and Plan: * CT of the abdomen pelvis no acute abdominal abnormality * Blood noted in the ua * Consider consulting Urology * Trend urine output * Looks to be getting better (2) UTI (urinary tract infection): Code(s): N39.0 - Urinary tract infection, site not specified Status: Acute Assessment and Plan: * E coli noted to be going in UA from [place] * Ceftriaxone on board and susceptible, will give patient a total of 5 doses * UA from here does not appear infectious * Repeat UA with culture shows no growth * Tailor antibiotics to culture results (3) Hypotension: Code(s): I95.9 - Hypotension, unspecified Status: Acute Assessment and Plan: * Blood pressure 90 systolically * Currently BP is 114/73 * IV fluids given * Sodium chloride at 100 mils per hour, DC for now * Trend blood pressure * Restarted candesartan and bisoprolol * Adjust therapy as indicated * Orthostatic BP laying 124/60, Sitting 130/72, Standing 114/73 * seems to be improving with fluids (4) Hypokalemia: Code(s): E87.6 - Hypokalemia Status: Acute Assessment and Plan: * Potassium 3.8 today * no supplement indicated today * Trend labs * Supplement is indicated (5) Diabetes: Code(s): E11.9 - Type 2 diabetes mellitus without complications Status: Acute Assessment and Plan: * Current glucose 134 * Accu-Cheks AC and HS * Diabetic diet * Insulin sliding scale * Trend glucose * Adjust therapy as indicated (6) Hypertension: Code(s): I10 - Essential (primary) hypertension Status: Acute Assessment and Plan: * Seems to be normalizing * IV fluids * Antihypertensives slowly restarted especially since the help with heart failure * continue to hold HCTZ and imdur * Trend blood pressure * Adjust therapy as indicated (7) Hyperlipidemia: Code(s): E78.5 - Hyperlipidemia, unspecified Status: Acute Assessment and Plan: * Continue home rosuvastatin * LFT remain stable at 39/36 (8) CAD (coronary artery disease): Code(s): I25.10 - Atherosclerotic heart disease of [place] coronary artery without angina pectoris Status: Acute Assessment and Plan: * Known coronary artery disease with stent placement * Continue aspirin * Restart plavix at this time with no stones noted * No chest pain noted * Tele monitor (9) Asthma: Code(s): J45.909 - Unspecified asthma, uncomplicated Status: Acute Assessment and Plan: * Continue home medications * Trend respiratory status * Adjust therapy as indicated (10) Orthostatic hypotension: Code(s): I95.1 - Orthostatic hypotension Status: Acute Assessment and Plan: * Seems to be resolving * Blood pressure lying is lying 124/60, sitting 130/72, standing 114/73 * Continue to hold antihypertensives this time * Continue IV fluids * Instruct patient about slow position changes * Carotid Dopplers <50% stenosis bilaterally right and left internal carotid artery, and 50-69% in the left common artery * She has a long history of arterial disease in her family, wi
[2021-10-14] MEDS: CANDESARTAN CILEXETIL 16 MG TABLET 32 MG PO (14:05)
[2021-10-14] MEDS: EMPAGLIFLOZIN 10 MG TABLET PO (14:06)
[2021-10-14] MEDS: MECLIZINE HCL 25 MG TABLET PO (14:08)
[2021-10-14] MEDS: bisoproloL fumarate 5 MG TABLET PO (16:03)
[2021-10-14] MEDS: CARBAMIDE PEROXIDE 6.5% OT SOLN 15 ML BTL 5 DROP EACH EAR (16:03)
[2021-10-14] MEDS: MONTELUKAST SODIUM 10 MG TABLET PO (20:44)
[2021-10-15] VITALS (9 sets, daily range): BP systolic 118–139; BP diastolic 61–69; PULSE 56–90; RESP 18–20; TEMP 36.1–36.9; O2SAT 96–99
[2021-10-15 05:16] LABS: Basophils Absolute Auto 0.1 K/mm3 (0.0-0.1); Basophils Percent Auto 0.8 % (0.2-1.2); Eosinophils Absolute Auto 0.2 K/mm3 (0-0.3); Eosinophils Percent Auto 2.6 % (0-4.4); Hematocrit 36.4 % (37.0-47.0); Immature Granulocyte Absolute 0.04 K/mm3 (0.00-0.031); Immature Granulocyte Percent A 0.4 % (0-0.5); Lymphocytes Absolute Auto 2.32 K/mm3 (0.9-3.2); Lymphocytes Percent Auto 25.9 % (18.3-44.2); Mean Corpuscular HGB Conc 35.7 g/dl (32-36); Mean Corpuscular Volume 92.4 fl (80-100); Mean Platelet Volume 9.7 fl (7.4-10.4); Monocytes Absolute Auto 0.7 K/mm3 (0.1-0.6); Neutrophils Absolute Auto 5.6 K/mm3 (1.3-6.7); Neutrophils Percent Auto 62.3 % (45.5-73.1); Platelet Count Result 221 k/mm3 (150-375); Red Blood Count 3.94 M/mm3 (4.2-5.4); Red Cell Distribution Width 12.9 % (11.5-14.5)
[2021-10-15 05:31] LABS: Alanine Aminotransferase 39 U/L (6-35); Albumin Level 3.4 g/dL (3.5-5.1); Alkaline Phosphatase 63 U/L (38-126); Anion Gap 5 mmol/L (8-16); Aspartate Amino Transferase 34 U/L (14-36); Bilirubin,Total 0.4 mg/dL (0.2-1.3); Blood Urea Nitrogen 9 mg/dL (7-17); Calcium 8.2 mg/dL (8.4-10.2); Carbon Dioxide 24 mmol/L (22-30); Chloride 111 mmol/L (98-107); Estimated CRCL calculation 59 ml/min; Estimated Glomerular Filt Rate > 60; Glucose 134 mg/dL (65-110); Magnesium 2.3 mg/dL (1.6-2.3); Potassium 3.5 mmol/L (3.4-5.0); Sodium 140 mmol/L (137-145)
[2021-10-15] MEDS: LEVOTHYROXINE SODIUM 75 MCG TABLET PO (06:03)
[2021-10-15] MEDS: ONDANSETRON INJ 4 MG/2 ML VIAL IV PUSH (06:50)
[2021-10-15] MEDS: MECLIZINE HCL 25 MG TABLET PO (06:50)
--- NOTE | 2021-10-15 09:00 | PM.DS ---
DS: Admitting Diagnosis Discharge Date 10/15/21 0900 Admitting Diagnosis Hypotension, UTI DS: Discharge Diagnosis Discharge Diagnosis (1) Left flank pain: Code(s): R10.9 - Unspecified abdominal pain Status: Acute Assessment and Plan: CT of the abdomen pelvis no acute abdominal abnormality Blood noted in the ua Consider consulting Urology Trend urine output Looks to be getting better (2) UTI (urinary tract infection): Code(s): N39.0 - Urinary tract infection, site not specified Status: Acute Assessment and Plan: E coli noted to be going in UA from [place] Ceftriaxone on board and susceptible, will give patient a total of 5 doses patient was treated with a a resistant antibiotic UA from here does not appear infectious Repeat UA with culture shows no growth Tailor antibiotics to culture results (3) Hypotension: Code(s): I95.9 - Hypotension, unspecified Status: Acute Assessment and Plan: Blood pressure 90 systolically Currently BP is 114/73 IV fluids given Sodium chloride at 100 mils per hour, DC for now Trend blood pressure Restarted candesartan and bisoprolol Adjust therapy as indicated Orthostatic BP laying 124/60, Sitting 130/72, Standing 114/73 seems to be improving with fluids (4) Hypokalemia: Code(s): E87.6 - Hypokalemia Status: Acute Assessment and Plan: Potassium 3.5 today no supplement indicated today Trend labs Supplement is indicated (5) Diabetes: Code(s): E11.9 - Type 2 diabetes mellitus without complications Status: Acute Assessment and Plan: Current glucose 134 Accu-Cheks AC and HS Diabetic diet Insulin sliding scale Trend glucose Adjust therapy as indicated (6) Hypertension: Code(s): I10 - Essential (primary) hypertension Status: Acute Assessment and Plan: Seems to be normalizing IV fluids Antihypertensives slowly restarted especially since the help with heart failure restarted patient's Imdur continue to hold HCTZ Trend blood pressure Adjust therapy as indicated explained the patient would like to continue to hold the hydrochlorothiazide and explained that she would need to take her blood pressure in the morning at night and write them down and taken to primary care provider for further instructions on whether to restart the hydrochlorothiazide or not (7) Hyperlipidemia: Code(s): E78.5 - Hyperlipidemia, unspecified Status: Acute Assessment and Plan: Continue home rosuvastatin LFT remain stable at 39/36 (8) CAD (coronary artery disease): Code(s): I25.10 - Atherosclerotic heart disease of [place] coronary artery without angina pectoris Status: Acute Assessment and Plan: Known coronary artery disease with stent placement Continue aspirin Restart plavix at this time with no stones noted No chest pain noted Tele monitor (9) Asthma: Code(s): J45.909 - Unspecified asthma, uncomplicated Status: Acute Assessment and Plan: Continue home medications Trend respiratory status Adjust therapy as indicated (10) Orthostatic hypotension: Code(s): I95.1 - Orthostatic hypotension Status: Acute Assessment and Plan: Seems to be resolving Blood pressure lying is lying 143/66, sitting 142/68, standing 125/63 antihypertensives restarted this time Continue IV fluids fluids have been discontinued Instruct patient about slow position changes Carotid Dopplers <50% stenosis bilaterally right and left internal carotid artery, and 50-69% in the left common artery She has a long history of arterial disease in her family, will have her follow up outpt. EKG shows sinus rhythm CT of the brain normal brain (11) Nausea, vomiting and diarrhea: Code(s): R11.2 - Naus
--- NOTE | 2021-10-15 09:00 | P.DS_ITS ---
DS: Admitting Diagnosis Discharge Date 10/15/21 0900 Admitting Diagnosis Hypotension, UTI DS: Discharge Diagnosis Discharge Diagnosis (1) Left flank pain: Code(s): R10.9 - Unspecified abdominal pain Status: Acute Assessment and Plan: * CT of the abdomen pelvis no acute abdominal abnormality * Blood noted in the ua * Consider consulting Urology * Trend urine output * Looks to be getting better (2) UTI (urinary tract infection): Code(s): N39.0 - Urinary tract infection, site not specified Status: Acute Assessment and Plan: * E coli noted to be going in UA from [place] * Ceftriaxone on board and susceptible, will give patient a total of 5 doses * patient was treated with a a resistant antibiotic * UA from here does not appear infectious * Repeat UA with culture shows no growth * Tailor antibiotics to culture results (3) Hypotension: Code(s): I95.9 - Hypotension, unspecified Status: Acute Assessment and Plan: * Blood pressure 90 systolically * Currently BP is 114/73 * IV fluids given * Sodium chloride at 100 mils per hour, DC for now * Trend blood pressure * Restarted candesartan and bisoprolol * Adjust therapy as indicated * Orthostatic BP laying 124/60, Sitting 130/72, Standing 114/73 * seems to be improving with fluids (4) Hypokalemia: Code(s): E87.6 - Hypokalemia Status: Acute Assessment and Plan: * Potassium 3.5 today * no supplement indicated today * Trend labs * Supplement is indicated (5) Diabetes: Code(s): E11.9 - Type 2 diabetes mellitus without complications Status: Acute Assessment and Plan: * Current glucose 134 * Accu-Cheks AC and HS * Diabetic diet * Insulin sliding scale * Trend glucose * Adjust therapy as indicated (6) Hypertension: Code(s): I10 - Essential (primary) hypertension Status: Acute Assessment and Plan: * Seems to be normalizing * IV fluids * Antihypertensives slowly restarted especially since the help with heart failure * restarted patient's Imdur * continue to hold HCTZ * Trend blood pressure * Adjust therapy as indicated explained the patient would like to continue to hold the hydrochlorothiazide and explained that she would need to take her blood pressure in the morning at night and write them down and taken to primary care provider for further instructions on whether to restart the hydrochlorothiazide or not (7) Hyperlipidemia: Code(s): E78.5 - Hyperlipidemia, unspecified Status: Acute Assessment and Plan: * Continue home rosuvastatin * LFT remain stable at 39/36 (8) CAD (coronary artery disease): Code(s): I25.10 - Atherosclerotic heart disease of [place] coronary artery without angina pectoris Status: Acute Assessment and Plan: * Known coronary artery disease with stent placement * Continue aspirin * Restart plavix at this time with no stones noted * No chest pain noted * Tele monitor (9) Asthma: Code(s): J45.909 - Unspecified asthma, uncomplicated Status: Acute Assessment and Plan: * Continue home medications * Trend respiratory status * Adjust therapy as indicated (10) Orthostatic hypotension: Code(s): I95.1 - Or
[2021-10-15] MEDS: ENOXAPARIN 40 MG/0.4 ML SYRINGE SUB-Q (09:08)
[2021-10-15] MEDS: FLUTICASONE PROPIONATE 0.05% NA SPR 16 GM BTL (*BKC) 2 SPRAY NASAL (09:08)
[2021-10-15] MEDS: ROSUVASTATIN 10 MG TABLET 40 MG PO (09:08)
[2021-10-15] MEDS: valACYclovir HCL 500 MG TABLET PO (09:09)
[2021-10-15] MEDS: methocarbamoL 500 MG TABLET PO ×2 (09:09→12:10)
[2021-10-15] MEDS: ASPIRIN 81 MG ENTERIC TABLET PO (09:09)
[2021-10-15] MEDS: PANTOPRAZOLE SODIUM IV 40 MG VIAL IV PUSH (09:09)
[2021-10-15] MEDS: CHOLECALCIFEROL 1,000 UNITS TABLET 2000 UNITS PO (09:09)
[2021-10-15] MEDS: VITAMIN E 400 UNIT CAPSULE PO (09:10)
[2021-10-15] MEDS: ACIDOPHILUS/BULGARICUS CHEWABLE TABLET 1 TABLET PO (09:10)
[2021-10-15] MEDS: GABAPENTIN 100 MG CAPSULE PO (09:10)
[2021-10-15] MEDS: bisoproloL fumarate 5 MG TABLET PO (09:11)
[2021-10-15] MEDS: CLOPIDOGREL BISULFATE 75 MG TABLET PO (09:12)
[2021-10-15] MEDS: LORATADINE 10 MG TABLET PO (09:12)
[2021-10-15] MEDS: EMPAGLIFLOZIN 10 MG TABLET PO (09:13)
[2021-10-15] MEDS: CARBAMIDE PEROXIDE 6.5% OT SOLN 15 ML BTL 5 DROP EACH EAR (09:15)
[2021-10-15] MEDS: CANDESARTAN CILEXETIL 16 MG TABLET 32 MG PO (09:15)
[2021-10-15] MEDS: ISOSORBIDE MONONITRATE 30 MG TAB.ER.24H PO (12:10)
== END 2021-10-15 16:50 | disposition home or self-care (01) | DRG 312 ==
PROVIDERS: Admitting Provider Internal Medicine; PCP Family Medicine; Visit Provider Nurse Practitioner
DX: I95.1 Orthostatic hypotension (principal); N39.0 Urinary tract infection, site not specified; I10 Essential (primary) hypertension; I25.10 Atherosclerotic heart disease of native coronary artery without angina pectoris; R10.9 Unspecified abdominal pain; E87.6 Hypokalemia; J45.909 Unspecified asthma, uncomplicated; E78.5 Hyperlipidemia, unspecified; E11.9 Type 2 diabetes mellitus without complications; H61.21 Impacted cerumen, right ear; R42 Dizziness and giddiness; R11.2 Nausea with vomiting, unspecified; R19.7 Diarrhea, unspecified; K57.90 Diverticulosis of intestine, part unspecified, without perforation or abscess without bleeding; Z86.718 Personal history of other venous thrombosis and embolism; Z79.899 Other long term (current) drug therapy; Z95.5 Presence of coronary angioplasty implant and graft
CPT/HCPCS: 36415; 70450; 71046; 74018; 74177; 80053; 81001; 82948; 83605; 83735; 85025; 87040; 87086; 93005; 93880; 94640; 96365; 96366; 96367; 96372; A9270; C9113; G0378; G0379; J0696; J1650; J2405; J3475; J3480; J7030; J7040; Q9967

== ENCOUNTER → 2022-01-07 09:51 | Outpatient (CLI) | payer OTHER, SELFPAY ==
--- NOTE | ~2022-01-07 | MM_ITS ---
EXAMINATION: MM screening [facility] BI w [facility] HISTORY: Screening TECHNIQUE: Craniocaudal and mediolateral oblique 3-D tomosynthesis images were obtained and synthetic 2-D images were generated. CAD analysis was submitted and interpreted. COMPARISON: Comparison to multiple prior studies sequentially, with oldest reviewed study dated 02/01. BREAST PARENCHYMAL COMPOSITION: There are scattered areas of fibroglandular density. FINDINGS: There is no evidence of suspicious mass, calcification, or architectural distortion to sugg est malignancy in either breast. There has been no suspicious interval change. IMPRESSION: 1. No mammographic evidence of malignancy. 2. Recommend routine screening mammography in one year. BI-RADS Category 1: Negative Reviewed, dictated and finalized at location A.
== END ==
PROVIDERS: PCP Family Medicine; Visit Provider Obstetrics & Gynecology Gynecology
DX: Z12.31 Encounter for screening mammogram for malignant neoplasm of breast (principal)
CPT/HCPCS: 77063; 77067

== ENCOUNTER → 2023-01-19 14:43 | Outpatient (CLI) | payer OTHER, SELFPAY ==
--- NOTE | ~2023-01-19 | MM_ITS ---
EXAMINATION: MM screening [facility] BI w [facility] HISTORY: Screening TECHNIQUE: Craniocaudal and mediolateral oblique 3-D tomosynthesis images were obtained and synthetic 2-D images were generated. CAD analysis was submitted and interpreted. COMPARISON: Comparison to multiple prior studies sequentially, with oldest reviewed study dated 03/03. BREAST PARENCHYMAL COMPOSITION: There are scattered areas of fibroglandular density. FINDINGS: There is no evidence of suspicious mass, calcification, or architectural distortion to sugg est malignancy in either breast. There has been no suspicious interval change. IMPRESSION: 1. No mammographic evidence of malignancy. 2. Recommend routine screening mammography in one year. BI-RADS Category 1: Negative Reviewed, dictated and finalized at location A.
== END ==
PROVIDERS: PCP Family Medicine; Visit Provider Obstetrics & Gynecology Gynecology
DX: Z12.31 Encounter for screening mammogram for malignant neoplasm of breast (principal)
CPT/HCPCS: 77063; 77067

== ENCOUNTER 2024-01-31 13:49 | Outpatient (CLI) | payer OTHER, SELFPAY ==
--- NOTE | ~2024-01-31 | MM_ITS ---
EXAMINATION: MM screening [facility] BI w [facility] HISTORY: Screening mammogram TECHNIQUE: Craniocaudal and mediolateral oblique 3-D tomosynthesis images were obtained and synthetic 2-D images were generated. CAD analysis was submitted and interpreted. COMPARISON: 01/19/2023, 01/07/2022, 01/12/2020 BREAST PARENCHYMAL COMPOSITION:Not Dense. There are scattered areas of fibroglandular density. FINDINGS: No suspicious mass, calcification, or architectural distortion are identified in either damian ast to suggest malignancy. There has been no suspicious interval change. IMPRESSION: No mammographic evidence of malignancy. Recommend routine screening mammography in one year. BI-RADS Category 1: Negative Reviewed, dictated and finalized at location .
== END 2024-01-31 13:50 | disposition home or self-care (01) ==
LOC: MICIMG 13:49
PROVIDERS: PCP Obstetrics & Gynecology Gynecology; Visit Provider Obstetrics & Gynecology Gynecology
DX: Z12.31 Encounter for screening mammogram for malignant neoplasm of breast (principal)
CPT/HCPCS: 77063; 77067

== ENCOUNTER 2024-05-06 13:49 | Outpatient (CLI) | payer OTHER, SELFPAY ==
--- NOTE | ~2024-05-06 | DEXA_ITS ---
Bone Density Report Name: LUIS SCOTT Age: 68 Sex: Female Ethnicity: White Date of : 1955 Indication: postmenopausal; screening for osteoporosis; height loss; inflammatory bowel disease; prior fracture; asthma or emphysema; Referring Provider: YAA BARRERA Study: Bone densitometry was performed. Exam Date: May 06, 2024 Accession number: [id number] Bone Density: Region BMD T-score Z-score Classification AP Spine(L1-L4) 1.226 1.6 3.5 Normal Femoral Neck (Left) 0.815 -0.3 1.3 Normal Total Hip (Left) 1.091 1.2 2.5 Normal Femoral Neck (Right) 0.923 0.7 2.3 Normal Total Hip (Right) 1.182 2.0 3.3 Normal Total Hip Mean 1.136 1.6 2.9 Normal World Health Organization criteria for BMD impression classify patients as: Normal (T-score at or above -1.0), Osteopenia (T-score between -1.0 and -2.5), or Osteoporosis (T-score at or below -2.5). 10-year Fracture Risk: FRAX not reported because: All T-scores for Spine Total, Hip Total, Femoral Neck at or above -1.0 Prior hip or vertebral fracture Clinical Information Provided by Patient: Have had a previous hip or vertebral fracture Has had a low trauma fracture Has used the following medications: Vitamin D Has the following medical conditions: Asthma or Emphysema, Inflammatory bowel diseases Patient maximum height was 64 Menopause Age: 47 Drinks caffeinated beverages Onset of menses at age 14 Number of children 0 Impression: The patient has normal bone mass. The patient has risk factors, including: previous fracture. Discussion: INCREASED RISK OF FRACTURE DUE TO HISTORY OF FRACTURE. The patient's previous fracture puts the patient at high risk of a future fracture. In untreated patients, the risk of osteoporotic fracture increases approximately two-fold for each 1.0 SD decrease in T-score. Low bone density is not the only risk factor for fracture; also consider factors such as patient's age, frailty or poor health, risk of falling, risk of injury, previous osteoporotic fracture, family history of osteoporosis, cigarette smoking, low body weight, etc. Not everyone with a low trauma fracture has osteoporosis; osteomalacia and other metabolic bone disorders should also be considered. Patients who have osteoporosis should be evaluated for specific diseases and conditions (secondary causes) that may cause or contribute to bone loss and fracture risk. National Osteoporosis Foundation (NOF) recommends pharmacologic intervention for patients with a prior hip or vertebral fracture regardless of BMD T-score. The patient should follow a healthful lifestyle (good nutrition with adequate calcium and vitamin D, and appropriate weight-bearing exercise). Follow-Up: Consider a repeat BMD and Vertebral Fracture Assessment (VFA) exam in 2 years or sooner if medically necessary, to reassess this patient's status. Reported by: EMI on 05/06/2024 2:39:00 PM. Reviewed, dictated and finalized at location [facility]
--- OUTSIDE RECORDS SUMMARY | 2024-05-06 14:01 | XMS_ITS | Encounter Summary ---
Author Organization [facility] Facility Care Team Providers Care Box Sorter Name Role Phone Rabia Rosenthal MD Primary Care Provider + [phone] Bunny Erazo Primary Care Provider + [phone] Kirit Graham MD Unavailable [phone] Phyllis Fu MD Unavailable [phone] Raymundo Yoo MD Unavailable [phone] Rene Serrano DO Unavailable [phone] Isaak Horton MD Unavailable [phone] Sirena Young MD Unavailable [phone] Ashia Olivier MD Unavailable Kamille Olivier MD Unavailable [phone] Sindy Bryant NP Unavailable [phone] Juan Coleman DO Primary Care Provider [phone] Ginette Peoples MD Primary Care Provi kristi Xiao BlairW Unavailable [phone] Encounter Details Date Type Department Care Team (Latest Contact Info) Description 06/13/2017 Orders Only [facility] CLINCONV ProviderSrinivasa MD [address] [place] [id number] Social History Tobacco Use Types Packs/Day Years Used Date Smoking Tobacco: Never Assessed Comments Unknown Sex and Gender Information Value Date Recorded Sex Assigned at Not on file Legal 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 us Historical Provider Final Res ult * CARDIOLOGY REPORT (06/13/2017 12:00 AM CDT) Anatomical Region Laterality Modality Other Narrative 06/13/2017 12:00 AM CDT Ordered by an unspecified provider. us Historical Provider [facility] PIERO CHRISTIANSON Final Result documented in this encounter Visit Diagnoses Not on filedocumented in this encounter Additional Health Concerns Infection Onset Date Last Indicated Resolved Time COVID: Suspected 10/29/2020 10/29/2020 10/30/2020 12:16 AM CDT COVID: Suspected 12/09/2020 12/09/2020 12/09/2020 10:04 PM CDT COVID: Suspected 01/17/2021 01/17/2021 01/17/2021 5:45 PM CDT COVID: Suspected 04/19/2021 04/20/2021 04/20/2021 7:44 PM ANSWERING SERVICE OPERATOR COVID: Suspected 06/15/2021 06/15/2021 06/15/2021 5:09 PM CDT COVID: Suspected 08/10/2021 08/10/2021 08/10/2021 9:27 AM CDT COVID: Suspected 10/09/2021 10/09/2021 10/09/2021 9:53 PM CDT COVID: Suspected 06/23/2022 06/23/2022 06/23/2022 1:16 PM CDT COVID: Suspected 04/24/2023 04/24/2023 04/24/2023 2:33 PM ANSWERING SERVICE OPERATOR COVID: Suspected 04/24/2023 04/24/2023 04/24/2023 7:57 PM ANSWERING SERVICE OPERATOR COVID: Suspected 06/28/2023 06/28/2023 06/28/2023 2:26 PM CDT COVID: Suspected 07/01/2023 07/01/2023 07/01/2023 8:57 AM CDT COVID19 07/01/2023 07/01/2023 07/11/2023 3:05 AM CDT COVID: Recovered Comment:Added based on recent COVID infection. 07/11/2023 07/11/2023 10/09/2023 3:07 AM C DT COVID: Suspected 12/27/2023 12/27/2023 12/27/2023 3:07 PM CDT COVID: Suspected 02/05/2024 02/05/2024 02/05/2024 7:45 PM ANSWERING SERVICE OPERATOR documented as of this encounter Care Teams Box Sorter Relationship Specialty Start Date End Date Rabia Rosenthal MD [address] [address] PCP - General 05/29/18 07/25/18 Bunny Erazo PA [address] [place] [address] [phone] PCP - General 07/26/18 11/13/19 Juan Coleman DO [address] [place] [address] [phone] PCP - General Family Medicine 11/14/19 11/26/19 Ginette Peoples MD [address] [place], [place] [phone] PCP - General Family Medicine 11/27/19 Kirit Graham MD [address] [place] [id number] Consulting Physician Interventional Cardiology 08/30/18 04/30/19 Phyllis Fu MD [address] [place] [id number] Consulting Physician Nephrology 08/30/18 [place] [address] [address] [address] Referring Physician Allergy and Immunology 08/30/18 Rene Serrano DO [address] [facility] [address] [place] [address] [place] [id number] Consulting Physician Orthopedic Surgery 08/30/18 Isaak Horton MD [address] [facility] [address] [place] [address] [place] [address] Referring Physician Cardiovascular Disease 05/01/19 Sirena Young MD [address] [address] Referring Physician Gynecology 05/01/19 Ashia Olivier MD [address] [place] [address] Referring Physician Family Practice 05/01/19 Kamille Olivier MD [address] [place] [address] Referring Physician Gastroenterology 05/01/19 Sindy Bryant NP [address] [address] Nurse Practitioner Urology 05/01/19 Xiao Blair, [address] MARIE Perez [address] Vinyl Cutter 11/21/23 11/27/23 documented as of this encounter
--- OUTSIDE RECORDS SUMMARY | 2024-05-06 14:01 | XMS_ITS | Referral Summary ---
Author Organization [facility] Mobile Address [address] [place] [address] Care Team Providers Care Home Care And Home Health Aides Teacher Name Role Phone Bunny Erazo PA-C Primary Care Provider [phone] Source Comments [facility],non-owned Affiliates and Associated Physician Practices is amultiple site organization consisting of ambulatory clinics and hospital sitesin [place], [place], [place] and [place]. This disclosure is being madepursuant to the Care Everywhere program and may not contain all information available regarding this patient. Last updated 17.[facility] Allergies Active Allergy Reactions Criticality Noted Date Comments Evolocumab Other 11/23/2018 Back pain and bladder issues Sulfa Drugs Urticaria Medium 11/23/2018 Medications * Be aware that medications may not be up to date on this document. Alwaysverify current medications with the patient. Medication Sig Dispensed Refills Start Date End Date Status Beclomethasone Dipropionate (QVAR IN) Ac tive isosorbide mononitrate CR 24hr (IMDUR) 30 MG tablet Take 30 mg by mouth once daily 0 09/24/2018 Active Aspirin 81 MG Take 81 mg by mouth once daily 2 10/21/2018 Active hydroCHLOROthiazide (HYDRODIURIL) 12.5 MG Take 12.5 mg by mouth every morning 1 11/04/2018 Active clopidogrel (PLAVIX) 75 MG tablet Take 75 mg by mouth once daily 1 09/30/2018 Active levothyroxine (SYNTHROID) 75 MCG tablet Take 75 mcg by mouth once daily 1 09/24/2018 Active rosuvastatin (CRESTOR) 40 MG tablet Take 40 mg by mouth once daily 1 08/31/2018 Active valACYclovir (VALTREX) 500 MG tablet Take 500 mg by mouth once daily 4 09/20/2018 Active JARDIANCE 10 MG tablet Take 10 mg by mouth once daily 1 10/30/2018 Active cephalexin (KEFLEX) 250 MG capsule Take 250 mg by mouth at bedtime 1 09/23/2018 Active cyclobenzaprine (FLEXERIL) 10 MG tablet TAKE 1 TABLET BY MOUTH THREE TIMES A DAY NEEDED FOR MUSCLE SPASMS FOR UP TO 7 DAYS 0 09/09/2018 Active ibuprofen (MOTRIN) 600 MG tablet TAKE 1 TABLET BY MOUTH 4 TIMES A DAY NEEDED FOR PAIN 0 09/16/2018 Active methocarbamol (ROBAXIN) 500 MG tablet TAKE 1 TABLET (500 MG TOTAL) BY MOUTH 4 (FOUR) TIMES A DAY NEEDED FOR MUSCLE SPASMS 0 11/08/2018 Active montelukast (SINGULAIR) 10 MG tablet TAKE 1 TABLET BY MOUTH EVERY DAY IN THE EVENING 5 08/26/2018 Active bisoprolol (ZEBETA) 5 MG tablet Take 5 mg by mouth once daily Active irbesartan (AVAPRO) 300 MG tablet Take 300 mg by mouth once daily Active ciprofloxacin 0.3% (CILOXAN) 0.3 % ophthalmic solution 1-2 Drops while awake every 2 hours for 2 days, then every 4 hours for 5 days 5 mL 11/23/2018 Active Social History Tobacco Use Types Packs/Day Years Used Date Smoking Tobacco: Never Smokeless Tobacco: Never Alcohol Use Standard Drinks/Week Comments Yes 0 (1 standard drink = 0.6 oz pur e alcohol) Sex and Gender Information Value Date Recorded Sex Assigned at Not on file Gender Identity Not on file Sexual Orientation Not on file Last Filed Vital Signs Vital Sign Reading Time Taken Comments Blood Pressure 140/78 11/23/2018 2:48 PM CDT Pulse 76 11/23/2018 2:48 PM CDT Temperature 37.1 ??C (98.7 ??F) 11/23/2018 2:48 PM CD T Respiratory Rate 16 11/23/2018 2:48 PM CDT Oxygen Saturation - - Inhaled Oxygen Concentration - - Weight 76.7 kg (169 lb) 11/23/2018 2:48 PM CDT Height 160 cm (5' 3 ) 11/23/2018 2:48 PM CDT Body Mass Index 29.94 11/23/2018 2:48 PM CDT Plan of Treatment Not on file Care Teams Home Care And Home Health Aides Teacher Relationship Specialty Start Date End Date Bunny Erazo PA-C [address] [place] [address] PCP - General 11/23/18
--- OUTSIDE RECORDS SUMMARY | 2024-05-06 14:01 | XMS_ITS | Encounter Summary ---
Author Organization [facility] Healthcare Address [address] [place] [address] Care Team Providers Care Branch Sales Manager Name Role Phone Phyllis Fu MD Unavailable [phone] Rene Serrano DO Unavailable [phone] Isaak Horton MD Unavailable [phone] Sirena Young MD Unavailable [phone] Ashia Olivier MD Unavailable Kamille Olivier MD Unavailable [phone] Sindy Bryant NP Unavailable [phone] Ginette Peoples MD Primary Care Provi kristi Reason for Visit * Reason Onset Date Comments Shortness of Breath 01/28/2024 Encounter Details Date Type Department Care Team (Late st Contact Info) Description 01/28/2024 Nurse Triage [facility] Family Medicine [address] [id number] Ginette Peoples MD [address] [place] [id number] Social History Tobacco Use Types Packs/Day Years Used Date Smoking Tobacco: Never Smokeless Tobacco: Never Alcohol Use Standard Drinks/Week Comments Not Currently 0 (1 standard drink = 0.6 oz pur e alcohol) [facility] Utilities Answer Date Recorded In the past 12 months has th e electric, gas, oil, or water company threatened to shut off services in your home? No 11/21/2023 Social Connection and Isolation Panel [NHANES] A nswer Date Recorded In a typical week, how many times do you talk on the phone with family, friends, or neighbors? Twice a week 11/21/2023 How often do you get together with friends or re latives? Never 11/21/2023 How often do you attend yarsanism or judaism serv ices? Never 11/21/2023 Do you belong to any clubs o r organizations such as yarsanism groups, unions, fraternal or athletic groups, or school groups? No 11/21/2023 How often do you attend meet ings of the clubs or organizations you belong to? Never 11/21/2023 Are you , , di vorced, , never , or living with a partner? 11/21/2023 AUDIT-C Answer Date Recorded Q1: How often do you have a drink containing alcohol? Never 04/15/2024 Q2: How many drinks containi ng alcohol do you have on a typical day when you are drinking? Patient does not drink Q3: How often do you have si x or more drinks on one occasion? Never 04/15/2024 Overall Financial Resource Strain (CARDIA) Answe r Date Recorded How hard is it for you to pa y for the very basics like food, housing, medical care, and heating? Somewhat hard 11/21/2023 PHQ-2 Answer Date Recorded PHQ-2 Total Score (If total score is 3 or more points, staff should administer the PHQ-9) 0 04/15/2024 Hunger Vital Sign Answer Date Recorded Within the past 12 months, y ou worried that your food would run out before you got the money to buy more. Never true 11/21/19 24 Within the past 12 months, t he food you bought just didn't last and you didn't have money to get more. Never true 11/21/2023 PRAPARE - Transportation Answer Date Re corded In the past 12 months, has l ack of transportation kept you from medical appointments or from getting medications? Yes 11/01 In the past 12 months, has l ack of transportation kept you from meetings, work, or from getting things needed for daily living? Yes 11/21/2023 Housing Stability Vital Sign Answer Bo e Recorded In the last 12 months, was t here a time when you were not able to pay the mortgage or rent on time? No 11/21/2023 In the past 12 months, how m any times have you moved where you were living? 0 11/21/2023 At any time in the past [address] [facility], were you homeless or living in a alf (including now)? 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 * Telephone Encounter - Xena Evans - 01/28/2024 2:15 PM CDT Call Back Caller???s Concern: Patient scheduled to see RETINA SUBSPECIALIST Heather tomorrow Does message need to be routed? No * Telephone Encounter - Ernestina Mosher LPN - 01/28/2024 2:05 PM CDT Call placed to pt to schedule appt tomorrow with provider, no answer, lmtc. * Telephone Encounter - Ginette Collins RN - 01/28/2024 12:20 PM CDT Images from the original note were not included. 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 It doesn't look like Dr Peoples is in today and I see you saw this patient recently. Im seeking your recommendation regarding ED disposition per guideline due shortness of breath with history of blood clot. Patient calling with shortness of breath with exertion and ongoing neck/shoulder pain since diagnosed with pneumonia end of Dec. Patient seen multiple times in office (12/26 and 01/09). She says she was advised to repeat x ray after 6 weeks which would be next week. She is wondering if she needs tocome into the office for re evaluation or if she should get the imaging done now instead? She did shields ve a blood clot in 2016. Echo was done last week. She has a cardiology apt Sunday and mammogram on . Which would be next week. She has beent taking ibuprofen and tylenol as well as using her rescue inhaler (last used 30 min ago). 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 Recommendation from provider:Home care advice/orders placed Patient aware of above and will get imaging done today after work. She states tomorrow she would need an afternoon apt (around 3). No apts available. Routing to Ginette Peoples MD's office to determine if any cancelations come up tomorrow afternoon to schedule patient. Reason for Disposition Any history of prior blood clot in leg or lungs Protocols used: Breathing [id number] * Telephone Encounter - Ginette Collins RN - 01/28/2024 12:15 PM CDT Regarding: shortness of breath, pain left neck, shoulder, shoulder blade and under left breast ----- Message from Yoselin Matthews sent at 01/28/2024 12:08 PM CDT ----- Symptom Based Call Chief Complaint(s): shortness of breath, pain left neck, shoulder, shoulder blade and under left breast Duration: got worse over weekend What type of symptom(s) is the patient experiencing? Red Flag. Is the patient concerned they are experiencing a medical emergency requiring an ambulance? No Additional Comments: patient stated she was feeling this off and on but has gotten worse over the weekend. Patient did have pneumonia in the left lung and doesn't know if that has anything to do withit Does message need to be routed? Yes-Action Needed documented in this encounter Plan of Treatment Not on file documented as of this encounter Visit Diagnoses Not on filedocumented in this encounter Additional Health Concerns Infection Onset Date Last Indicated Resolved Time COVID: Suspected 02/05/2024 02/05/2024 02/05/2024 7:45 PM ESCAPE WHEEL TOOTH CUTTER documented as of this encounter Care Teams Branch Sales Manager Relationship Specialty Start Date End Date Ginette Peoples MD [address] [place] [address] PCP - General Family Medicine 11/27/19 Phyllis Fu MD Consulting Physician Nephrology 08/30/18 Rene Serrano DO [address] [place] [address] [place] [address] Consulting Physician Orthopedic Surgery 08/30/18 Isaak Horton MD [address] [place] [address] [place] [address] Referring Physician Cardiovascular Disease 05/01/19 Sirena Young MD [address] [place] [id number] Referring Physician Gynecology 05/01/19 Ashia Olivier MD [address] [place] [address] Referring Physician Family Practice 05/01/19 Kamille Olivier MD [address] [facility] [place] [address] Referring Physician Gastroenterology 05/01/19 Sindy Bryant NP [address] [address] Nurse Practitioner Urology 05/01/19 documented as of this encounter
--- OUTSIDE RECORDS SUMMARY | 2024-05-06 14:01 | XMS_ITS | Patient Health Summary ---
Author Organization [facility] Address [address] [place] [address] Care Team Providers Care City Superintendent Of Schools Name Role Phone Bunny Erazo PA-C Primary Care Provider [phone] Note from [facility],non-owned Affiliates and Associated Physician Practices is amultiple site organization consisting of ambulatory clinics and hospital sitesin [place], [place], [place] and [place]. This disclosure is being madepursuant to the Care Everywhere program and may not contain all information available regarding this patient. Last updated 17.[facility] Allergies * Evolocumab(Other) * Sulfa Drugs(Urticaria) -Medium Criticality Medications * Be aware that medications may not be up to date on this document. Alwaysverify current medications with the patient. * Beclomethasone Dipropionate (QVAR IN) * isosorbide mononitrate CR 24hr (IMDUR) 30 MG tablet(Started 09/24/2018) Take 30 mg by mouth once daily * Aspirin 81 MG(Started 10/21/2018) Take 81 mg by mouth once daily 2 refills left * hydroCHLOROthiazide (HYDRODIURIL) 12.5 MG(Started 11/04/2018) Take 12.5 mg by mouth every morning 1 refill left * clopidogrel (PLAVIX) 75 MG tablet(Started 09/30/2018) Take 75 mg by mouth once daily 1 refill left * levothyroxine (SYNTHROID) 75 MCG tablet(Started 09/24/2018) Take 75 mcg by mouth once daily 1 refill left * rosuvastatin (CRESTOR) 40 MG tablet(Started 08/31/2018) Take 40 mg by mouth once daily 1 refill left * valACYclovir (VALTREX) 500 MG tablet(Started 09/20/2018) Take 500 mg by mouth once daily 4 refills left * JARDIANCE 10 MG tablet(Started 10/30/2018) Take 10 mg by mouth once daily 1 refill left * cephalexin (KEFLEX) 250 MG capsule(Started 09/23/2018) Take 250 mg by mouth at bedtime 1 refill left * cyclobenzaprine (FLEXERIL) 10 MG tablet(Started 09/09/2018) TAKE 1 TABLET BY MOUTH THREE TIMES A DAY NEEDED FOR MUSCLE SPASMS FOR UP TO 7 DAYS * ibuprofen (MOTRIN) 600 MG tablet(Started 09/16/2018) TAKE 1 TABLET BY MOUTH 4 TIMES A DAY NEEDED FOR PAIN * methocarbamol (ROBAXIN) 500 MG tablet(Started 11/08/2018) TAKE 1 TABLET (500 MG TOTAL) BY MOUTH 4 (FOUR) TIMES A DAY NEEDED FOR MUSCLE SPASMS * montelukast (SINGULAIR) 10 MG tablet(Started 08/26/2018) TAKE 1 TABLET BY MOUTH EVERY DAY IN THE EVENING 5 refills left * bisoprolol (ZEBETA) 5 MG tablet Take 5 mg by mouth once daily * irbesartan (AVAPRO) 300 MG tablet Take 300 mg by mouth once daily * ciprofloxacin 0.3% (CILOXAN) 0.3 % ophthalmic solution(Started 11/23/2018) 1-2 Drops while awake every 2 hours for 2 days, then every 4 hours for 5 days Social History Tobacco Use Types Packs/Day Years [...] Mass Index 29.94 11/23/2018 2:48 PM CDT Care Teams City Superintendent Of Schools Relationship Specialty Start Date End Date Bunny Erazo PA-C [address] [place] [address] PCP - General 11/23/18
--- OUTSIDE RECORDS SUMMARY | 2024-05-06 14:01 | XMS_ITS | Encounter Summary ---
Author Organization [facility] Care Team Providers Care Drum Cleaner Name Role Phone Rabia Rosenthal MD Primary Care Provider + [phone] Bunny Erazo Primary Care Provider + [phone] Kirit Graham MD Unavailable [phone] Phyllis Fu MD Unavailable [phone] Raymundo Yoo MD Unavailable [phone] Rene Serrano DO Unavailable [phone] Isaak Horton MD Unavailable [phone] Sirena Young MD Unavailable [phone] Ashia Olivier MD Unavailable Kamille Olivier MD Unavailable [phone] Sindy Bryant NP Unavailable [phone] Juan Coleman DO Primary Care Provider [phone] Ginette Peoples MD Primary Care Provi kristi Xiao BlairW Unavailable [phone] Encounter Details Date Type Department Care Team (Latest Contact Info) Description 10/11/2016 Orders Only [facility] ProviderSrinivasa MD [address] [place] [address] Social History Tobacco Use Types Packs/Day Years Used Date Smoking Tobacco: Never Assessed Comments Unknown Sex and Gender Information Value Date Recorded Sex Assigned at Not on file Legal Sex Female 6:00 PM VISION REHABILITATION THERAPIST Gender Identity Not on file Sexual Orientation Not on file documented as of this encounter Plan of Treatment Not on file documented as of this encounter Procedures Procedure Name Priority Date/Time Associated Diagnosis Comments PROCEDURE - RESULT 11/16/2016 12 :00 AM CDT documented in this encounter Results * PROCEDURE - RESULT (11/16/2016 12:00 AM CDT) Narrative 11/16/2016 12:00 AM CDT Ordered by an unspecified provider. Historical Provider Final Res ult documented in this encounter Visit Diagnoses Not on filedocumented in this encounter Additional Health Concerns Infection Onset Date Last Indicated Resolved Time COVID: Suspected 10/29/2020 10/29/2020 10/30/2020 12:16 AM CDT COVID: Suspected 12/09/2020 12/09/2020 12/09/2020 10:04 PM CDT COVID: Suspected 01/17/2021 01/17/2021 01/17/2021 5:45 PM CDT COVID: Suspected 04/19/2021 04/20/2021 04/20/2021 7:44 PM VISION REHABILITATION THERAPIST COVID: Suspected 06/15/2021 06/15/2021 06/15/2021 5:09 PM CDT COVID: Suspected 08/10/2021 08/10/2021 08/10/2021 9:27 AM CDT COVID: Suspected 10/09/2021 10/09/2021 10/09/2021 9:53 PM CDT COVID: Suspected 06/23/2022 06/23/2022 06/23/2022 1:16 PM CDT COVID: Suspected 04/24/2023 04/24/2023 04/24/2023 2:33 PM VISION REHABILITATION THERAPIST COVID: Suspected 04/24/2023 04/24/2023 04/24/2023 7:57 PM VISION REHABILITATION THERAPIST COVID: Suspected 06/28/2023 06/28/2023 06/28/2023 2:26 PM CDT COVID: Suspected 07/01/2023 07/01/2023 07/01/2023 8:57 AM CDT COVID19 07/01/2023 07/01/2023 07/11/2023 3:0 5 AM CDT COVID: Recovered Comment:Added based on recent COVID infection. 07/11/2023 07/11/2023 10/09/2023 3:07 AM C DT COVID: Suspected 12/27/2023 12/27/2023 12/27/2023 3:07 PM CDT COVID: Suspected 02/05/2024 02/05/2024 02/05/2024 7:45 PM VISION REHABILITATION THERAPIST documented as of this encounter Care Teams Drum Cleaner Relationship Specialty Start Date End Date Rabia Rosenthal MD [address] [address] PCP - General 05/29/18 07/25/18 Bunny Erazo PA [address] [place] [id number] PCP - General 07/26/18 11/13/19 Juan Coleman DO [address] [place] [id number] PCP - General Family Medicine 11/14/19 11/26/19 Ginette Peoples MD [address] [place], [place] [address] PCP - General Family Medicine 11/27/19 Kirit Graham MD [address] [place] [id number] Consulting Physician Interventional Cardiology 08/30/18 04/30/19 Phyllis Fu MD [address] [address] Consulting Physician Nephrology 08/30/18 [place] [address] [address] [facility] [address] [place] [address] Referring Physician Allergy and Immunology 08/30/18 Rene Serrano DO [address] [facility] [address] [place] [address] [place] [address] Consulting Physician Orthopedic Surgery 08/30/18 Isaak Horton MD [address] [facility] [address] [place] [address] [place] [address] Referring Physician Cardiovascular Disease 05/01/19 Sirena Young MD [address] [facility] [address] [place] [address] Referring Physician Gynecology 05/01/19 Ashia Olivier MD [address] [place] [address] Referring Physician Family Practice 05/01/19 Kamille Olivier MD [address] [place] [address] Referring Physician Gastroenterology 05/01/19 Sindy Bryant, [place] [address] [place], [place] [id number] Nurse Practitioner Urology 05/01/19 Xiao Blair, [address] [place] [address] Early Childhood Teacher 11/21/23 11/27/23 documented as of this encounter
--- OUTSIDE RECORDS SUMMARY | 2024-05-06 14:01 | XMS_ITS | Encounter Summary ---
Author Organization [facility] Healthcare Address [address] [place] [address] Care Team Providers Care Strip Deburrer Name Role Phone Phyllis Fu MD Unavailable [phone] Rene Serrano DO Unavailable [phone] Isaak Horton MD Unavailable [phone] Sirena Young MD Unavailable [phone] Ashia Olivier MD Unavailable Kamille Olivier MD Unavailable [phone] Sindy Bryant NP Unavailable [phone] Ginette Peoples MD Primary Care Provi kristi Reason for Visit * Reason Onset Date Comments Pain 03/10/2024 Encounter Details Date Type Department Care Team (Late st Contact Info) Description 03/10/2024 Nurse Triage [facility] Family Medicine [address] [phone] Selene Elaine RN Social History Tobacco Use Types Packs/Day Years Used Date Smoking Tobacco: Never Smokeless Tobacco: Never Alcohol Use Standard Drinks/Week Comments Not Currently 0 (1 standard drink = 0.6 oz pur e alcohol) [facility] Utilities Answer Date Recorded In the past 12 months has [employer] electric, gas, oil, or water company threatened [...] Never 11/21/2023 How often do you attend confucianist or church serv ices? Never 11/21/2023 Do you belong to any clubs o r organizations such as confucianist groups, unions, fraternal or athletic groups, or school groups? No 11/21/2023 How often do you attend meet ings of the clubs or organizations you belong to? Never 11/21/2023 Are you , , di vorced, , never , or living with a partner? 11/21/2023 AUDIT-C Answer Date Recorded Q1: How often do you have a drink containing alcohol? Never 03/10/2024 Q2: How many drinks containi ng alcohol do you have on a typical day when you are drinking? Patient does not drink Q3: How often do you have si x or more drinks on one occasion? Never 03/10/2024 Overall Financial Resource Strain (CARDIA) Answe r Date Recorded How hard is it for you to pa y for the very basics like food, housing, medical care, and heating? Somewhat hard 11/21/2023 PHQ-2 Answer Date Recorded PHQ-2 Total Score (If total score is 3 or more points, staff should administer the PHQ-9) 0 01/10/2024 Hunger Vital Sign Answer Date Recorded Within [...] any time in the past 12 m [facility], were you homeless or living in a prison (including now)? 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 BOX CHANGER * Telephone Encounter - Ernestina Mosher LPN - 03/10/2024 11:33 AM CST Pt scheduled today. BOX CHANGER * Telephone Encounter - Selene Elaine RN - 03/10/2024 9:03 AM SLIP BOX CHANGER Radha Iqbal reports constant to moderate dull achy pain in left side of waist to lower rib starting yesterday. Pain is felt more in the back. Feels tenderness when pressing on side. Nauseated with gagging yesterday, continues with some nausea this am. Yesterday had a full bladder pain up to navel. States ???gut started cramping, had loose bowels, that looked like green beans (had not ate green beans). Has 2 bowel movements with an hour. Feels bloated. Dx in January with chest wall pain,feels like it has never really went away, continues intermittently. In past 2 days states ???knot in back of left side of neck that traveled to left shoulder blade, finally left up?? . Yellow nasal dr ainage with sneezing, and productive coughing with white mucus slightly worse. Stayed in bed all day yesterday, states ???feeling so bad?? . Eats small meals and drinking lots of fluids. Using Flonase, saline for nasal, and taking Mucinex. 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 Cece ZAPIEN contacted [facility] for ED disposition consult. Recommendation from provider:Schedule in PCP office today or tomorrow or UC. [facility] wants an appointment today in office. Transferred to backline, [place]. Home care reviewed. Advised pt to call back if symptoms worsen or with any other concerns/questions. Pt verbalized understanding. Reason for Disposition MILD TO MODERATE constant pain lasting > 2 hours Protocols used: Abdominal Pain - [id number] BOX CHANGER * Telephone Encounter - Nkechi Martinez RN - 03/10/2024 8:30 AM CST Regarding: Chest wall pain, her neck hurts and shoulder hurts. ----- Message from Edwina Rodriguez sent at 03/10/2024 8:16 AM SLIP BOX CHANGER ----- Symptom Based Call Chief Complaint(s): Chest wall pain, her neck hurts and shoulder hurts. Duration: yesterday What type of symptom(s) is the patient experiencing? Red Flag. Is the patient concerned they are experiencing a medical emergency requiring an ambulance? No Additional Comments: Patient feels like she has a knot in her neck, it travels down her left shoulder, she also has pain in her gut, is nauseas, pain that runs down from her waist to her back. All inthe left side. She is also blowing out yellow stuff from her nose. Patient said she felt so bad shestayed in the bed all day yesterday. Her stomach is making noises. Does message need to be routed? Yes-Action Needed BOX CHANGER documented in this encounter Plan of Treatment Not on file documented as of this encounter Visit Diagnoses Not on filedocumented in this encounter Care Teams Strip Deburrer Relationship Specialty Start Date End Date Ginette Peoples MD [address] [place] [id number] PCP - General Family Medicine 11/27/19 Phyllis Fu MD Consulting Physician Nephrology 08/30/18 Rene Serrano DO [address] [facility] [address] [place] [address] [place] [address] Consulting Physician Orthopedic Surgery 08/30/18 Isaak Horton MD [address] [facility] [address] [place] [address] [place] [address] Referring Physician Cardiovascular Disease 05/01/19 Sirena Young MD [address] [facility] [place] [address] [place] [address] Referring Physician Gynecology 05/01/19 Ashia Olivier MD [address] [place] [address] Referring Physician Family Practice 05/01/19 Kamille Olivier MD [address] [place] [address] Referring Physician Gastroenterology 05/01/19 Sindy Bryant, [place] [address] [place] [address] [id number] Nurse Practitioner Urology 05/01/19 documented as of this encounter
--- OUTSIDE RECORDS SUMMARY | 2024-05-06 14:01 | XMS_ITS | Encounter Summary ---
Author Organization [facility] Care Team Providers Care Stress Test Technician Name Role Phone Rabia Rosenthal MD Primary Care Provider + [phone] Bunny Erazo Primary Care Provider + [phone] Kirit Graham MD Unavailable [phone] Phyllis Fu MD Unavailable [phone] Raymundo Yoo MD Unavailable [phone] Rene Serrano DO Unavailable [phone] Isaak Horton MD Unavailable [phone] Sirena Young MD Unavailable [phone] Ashia Olivier MD Unavailable Kamille Olivier MD Unavailable [phone] Sindy Bryant NP Unavailable [phone] Juan Coleman DO Primary Care Provider [phone] Ginette Peoples MD Primary Care Provi kristi Xiao BlairW Unavailable [phone] Encounter Details Date Type Department Care Team (Latest Contact Info) Description 11/11/2016 Orders Only [facility] CLINCON[facility] ProviderSrinivasa MD [address] [place] [id number] Social History Tobacco Use Types Packs/Day Years Used Date Smoking Tobacco: Never Assessed Comments Unknown Sex and Gender Information Value Date Recorded Sex Assigned at Not on file 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 Gender Identity Not on file Sexual Orientation Not on file documented as of this encounter Plan of Treatment Not on file documented as of this encounter Procedures Procedure Name Priority Date/Time Associated Diagnosis Comments CARDIOLOGY REPORT 11/15/2016 12: 00 AM CDT documented in this encounter Results * CARDIOLOGY REPORT (11/15/2016 12:00 AM CDT) Anatomical Region Laterality Modality Other Narrative 11/15/2016 12:00 AM CDT Ordered by an unspecified [...] COVID: Suspected 04/19/2021 04/20/2021 04/20/2021 7:44 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 COVID: Suspected 06/15/2021 06/15/2021 06/15/2021 5:09 PM CDT COVID: Suspected 08/10/2021 08/10/2021 08/10/2021 9:27 AM CDT COVID: Suspected 10/09/2021 10/09/2021 10/09/2021 9:53 PM CDT COVID: Suspected 06/23/2022 06/23/2022 06/23/2022 1:16 PM CDT COVID: Suspected 04/24/2023 04/24/2023 04/24/2023 2:33 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 COVID: Suspected 04/24/2023 04/24/2023 04/24/2023 7:57 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 COVID: Suspected 06/28/2023 06/28/2023 06/28/2023 2:26 PM CDT COVID: Suspected 07/01/2023 07/01/2023 07/01/2023 8:57 AM CDT COVID19 07/01/2023 07/01/2023 07/11/2023 3:05 AM CDT COVID: Recovered Comment:Added based on recent COVID infection. 07/11/2023 07/11/2023 10/09/2023 3:07 AM C DT COVID: Suspected 12/27/2023 12/27/2023 12/27/2023 3:07 PM CDT COVID: Suspected 02/05/2024 02/05/2024 02/05/2024 7:45 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 documented as of this encounter Care Teams Stress Test Technician Relationship Specialty Start Date End Date Rabia Rosenthal MD [address] [address] PCP - General 05/29/18 07/25/18 Bunny Erazo PA [address] [place] [address] [phone] PCP - General 07/26/18 11/13/19 Juan Coleman DO [address] [place] [address] [id number] PCP - General Family Medicine 11/14/19 11/26/19 Ginette Peoples MD [address] [place], [place] [phone] PCP - General Family Medicine 11/27/19 Kirit Graham MD [address] [place] [address] [phone] Consulting Physician Interventional Cardiology 08/30/18 04/30/19 Phyllis Fu MD [address] [address] Consulting Physician Nephrology 08/30/18 [place] [address] [facility] [address] [place] [address] Referring Physician Allergy and Immunology 08/30/18 Rene Serrano DO [address] [facility] [address] [place] [address] [place] [address] Consulting Physician Orthopedic Surgery 08/30/18 Isaak Horton MD [address] [facility] [address] [place] [address] [place] [address] Referring Physician Cardiovascular Disease 05/01/19 Sirena Young MD [address] [facility] [address] [place] [address] Referring Physician Gynecology 05/01/19 Ashia Olivier MD [address] [place] [address] Referring Physician Family Practice 05/01/19 Kamille Olivier MD [address] [place] [address] Referring Physician Gastroenterology 05/01/19 Sindy Bryant NP [address] [place] [address] Nurse Practitioner Urology 05/01/19 Xiao Blair, [address] [place] [address] Director Of Radiology 11/21/23 11/27/23 documented as of this encounter
--- OUTSIDE RECORDS SUMMARY | 2024-05-06 14:01 | XMS_ITS | Clinical Summary ---
Author Organization [facility] at [facility] Address [address] [place] [address] Care Team Providers Care Cash Teller Name Role Phone Phyllis Fu MD Unavailable [phone] Rene Serrano DO Unavailable [phone] Isaak Horton MD Unavailable [phone] Sirena Young MD Unavailable [phone] Ashia Olivier MD Unavailable Kamille Olivier MD Unavailable [phone] Sindy Bryant NP Unavailable [phone] Ginette Peoples MD Primary Care Provi kristi Allergies Active Allergy Reactions Criticality Noted Date Comments Ciprofloxacin Other (See comments) Low 07/15/2018 lightheadedness Evolocumab Other (See comments) Low 11/23/2018 Back pain and bladder issues Ezetimibe Fever Medium 08/30/2018 fever and joint pain Lisinopril Cough Low 11/30/2023 Metformin Hcl Stomach upset Low 07/15/2018 GI upset Mold Other (See comments) Low 07/10/2022 Trees too Sulfa (Sulfonamide Antibiotics) Hives Medium 07/15/2018 hives Medications hyoscyamine (LEVSIN) 0.[address] 1 tablet (0.125 mg total) under the tongue 4 (four) times a day as needed Active Lactobacillus acidophilus 10 billion cell capsule daily Active multivitamin capsule Active valACYclovir (VALTREX) 500 mg tablet Take 1 tablet (500 mg total) by mouth daily Active clotrimazole-be tamethasone (LOTRISONE) cream Active vitamin E (AQUASOL E) 400 unit capsule 1 capsule (400 Units total) daily Active coenzyme Q10 10 mg capsule Take 1 capsule (10 mg total) by mouth daily Active loratadine 10 mg capsule Take by mouth as needed Active hydrocortisone (ANUSOL-HC) 2.5 % rectal creamIndication s:External hemorrhoid Insert into the rectum 4 (four) times a day as needed for hemorrhoids (rectal discomfort) Apply to affected areas 30 g 10/25/19 22 Active bisoprolol (ZEBETA) 5 mg tablet TAKE 1 TABLET BY MOUTH EVERY DAY 90 tablet 1 04/24/19 23 Active melatonin 10 mg tablet 1 tablet (10 mg total) Otc prn Active albuterol HFA (PROVENTIL HFA,VENTOLIN HFA,PROAIR HFA) 90 mcg/actuation inhalerIndicati ons:Cough INHALE 2 PUFFS INTO THE LUNGS EVERY 6 HOURS FOR 30 DAYS 3 each 1 08/18/19 23 Active alcohol swabs pads, medicatedIndica tions:Type 2 diabetes mellitus with microalbuminuri a, without long-term current use of insulin ([facility]) Apply 1 each topically daily 200 each 3 12/16/19 23 Active blood-glucose meter kitIndications: Type 2 diabetes mellitus with microalbuminuri a, without long-term current use of insulin ([facility]) Use to check blood sugars daily 1 kit 12/16/19 23 Active blood glucose diagnostic (glucose blood) stripIndication s:Type 2 diabetes mellitus with microalbuminuri a, without long-term current use of insulin ([facility]) Use to check blood sugar once daily 100 each 3 12/16/19 23 Active lidocaine (LIDODERM) 5 %Indications:Le ft leg pain Place 1 patch on the skin daily Remove & discard patch within 12 hours or as directed by . 90 patch 3 12/16/19 23 Active lancets miscIndications :Type 2 diabetes mellitus with microalbuminuri a, without long-term current use of insulin ([facility]) Use to check blood sugars once daily 200 each 12/20/19 23 Active rosuvastatin (CRESTOR) 40 mg tablet Take 1 tablet (40 mg total) by mouth nightly 02/22/20 23 Active fluticasone propionate (FLONASE) 50 mcg/actuation nasal spray 1 SPRAY(S) IN EACH NOSTRIL ONCE A DAY 90 DAYS 48 mL 3 03/09/20 23 Active psyllium husk (METAMUCIL ORAL) Take by mouth Active azelastine (ASTELIN) 137 mcg (0.1 %) nasal spray SPRAY 2 SPRAYS INTO EACH NOSTRIL EVERY DAY FOR 30 DAYS 05/29/19 24 Active levothyroxine (SYNTHROID) 75 mcg tabletIndicatio ns:Hypothyroidi sm, unspecified type TAKE 1 TABLET BY MOUTH EVERY DAY 90 tablet 3 09/24/19 24 Active clotrimazole (MYCELEX) 10 mg spike Take 1 tablet (10 mg total) by mouth 5 (five) times a day 30 Spike 10/24/19 24 Active nystatin 100,000 unit/mL suspension TAKE 10 ML BY MOUTH FOUR TIMES A DAY FOR 10 DAYS. SWISH IN MOUTH AND SWALLOW. 11/14/19 24 Active busPIRone (BUSPAR) 5 mg tabletIndicatio ns:Generalized Anxiety Disorder Take 1 tablet (5 mg total) by mouth 2 (two) times a day 180 tablet 11/23/19 24 Active isosorbide mononitrate ER (IMDUR) 30 mg 24 hr tablet TAKE 1 TABLET BY MOUTH EVERY DAY 90 tablet 3 01/07/20 24 Active aspirin 81 mg enteric coated tablet TAKE 1 TABLET BY MOUTH EVERY DAY 90 tablet 1 01/07/20 24 Active methocarbamoL (ROBAXIN) 500 mg tabletIndicatio ns:Left leg pain TAKE 1 TABLET BY MOUTH 4 TIMES A DAY NEEDED FOR MUSCLE SPASMS. 40 tablet 1 01/21/20 24 Active hydrOXYzine (ATARAX) 10 mg tabletIndicatio ns:Situational anxiety TAKE 1 TABLET (10 MG TOTAL) BY MOUTH TWICE A DAY NEEDED FOR ANXIETY 180 tablet 01/28/20 24 Active Jardiance 10 mg tabletIndicatio ns:Type 2 diabetes mellitus without complication, without long-term current use of insulin (CMS/HCC) ([facility]) TAKE 1 TABLET BY MOUTH EVERY DAY 90 tablet 01/31/20 24 Active montelukast (SINGULAIR) 10 mg tablet TAKE 1 TABLET BY MOUTH EVERY DAY AT NIGHT 90 tablet 1 02/06/20 24 Active hydroCHLOROthia zide 12.5 mg tablet TAKE 1 TABLET BY MOUTH EVERY DAY IN THE MORNING 100 tablet 1 02/20/20 24 Active mometasone-form oterol (Dulera) 200-5 mcg/actuation inhaler INHALE 2 PUFFS BY MOUTH 2 TIMES A DAY RINSE MOUTH WITH WATER AFTER USE. DO NOT SWALLOW. 1 each 5 02/25/20 24 Active ibuprofen (ADVIL,MOTRIN) 600 mg tabletIndicatio ns:Acute right-sided low back pain without sciatica TAKE 1 TABLET BY MOUTH EVERY 8 HOURS NEEDED FOR PAIN 30 tablet 1 03/27/20 24 Active benzonatate (TESSALON) 200 mg capsule Take 1 capsule (200 mg total) by mouth 3 (three) times a day as needed 07/01/19 24 025 Discontinu ed(Patient Reported) cephalexin (KEFTAB) 250 mg tablet Take 1 tablet (250 mg total) by mouth nightly 01/13/20 24 025 Discontinu ed(Patient Reported) ketorolac (TORADOL) 10 mg tabletIndicatio ns:Neck pain on left side,Chronic left shoulder pain,Chronic left-sided thoracic back pain Take 1 tablet (10 mg total) by mouth every 6 (six) hours as needed for pain 20 tablet 03/10/20 24 025 Discontinu ed(Therapy completed) amoxicillin-cla vulanate (AUGMENTIN) 875-125 mg per tablet Take 1 tablet by mouth 2 (two) times a day for 10 days 20 tablet 04/15/19 25 025 Active Problems Problem Noted Date Diagnosed Date Type 2 diabetes mellitus wit h hyperglycemia, without long-term current use of insulin 11/30/2023 Moderate persistent asthma without complication 09/21/2023 Assessment & Plan (01/10/2024 3:28 PM CDT): Chronic. Possibly with mild exacerbation, post pneumonia. Declines a nebulizer treatment in office today. Recommend using her albuterol inhaler 3 times daily for the next 3 days to see if symptoms improve. Continue Symbicort twice daily. COVID-19 07/01/2023 Assessment & Plan (07/01/2023 10:11 AM CDT): VSS, NAD, lungs ctab Rapid covid positive Rapid flu negative Rapid strep negative. TC pending Symptom duration 4 days History of mild persistent asthma, on Symbicort daily, albuterol prn Reports some subjective SOB with exertion Qualifies for paxlovid based on age, asthma history, DM type II history, BMI. Patient reports she has taken paxlovid before and would like to start it. Paxlovid as prescribed. Hold crestor while taking paxlovid for 8 days. Discussed if increased albuterol use more than 2 times a day then start prednisone otherwise can hold off ER for CP, worseningSOB, dizziness, syncope Tylenol for aches, pains. Take per package directions Antihistamines like Claritin or Zyrtec as needed for drainage. Take per package directions Delsym (cough suppressant) and Mucinex (cough expectorant) as needed for coughing. Follow package directions . Tessalon as needed as cough suppressant Frequent cough drops and lozenges Increase sugar free fluids, especially decaffeinated ones Sleep with head of bed raised to promote drainage Flonase or nasal saline spray, 2 sprays each nostril daily Discussed the life expectancy of a viral illness is 7 to 10 days. Discussed supportive measures including increase fluid intake, rest, use of Tylenol/Motrin for discomfort and/or fevers. Recommend using drug-free nasal saline every 3-4 hours with frequent nose blowing to alleviate nasal congestion and honey +/- warm tea to alleviate cough/sore throat. Instructed to use good handwashing within the household. Patient understands and agrees with treatment plan. Call or return to clinic with any questions or concerns. Patient verbalizes understanding and agreeable to plan. Avoid spreading the virus by remaining at home and away from others until you are fever-free (temperature below 100) for 24 hours. Good handwashing and covering your mouth when coughing are also important. If you are not improving or worsening in the next 5-7 days you must go to your PCP, or Urgent Care/ER to be SEEN and reevaluated. No further prescriptions or refills will be given by phone without another evaluation. If you develop a high fever 103+, neck stiffness, trouble breathing, chest pain, or other life threatening symptoms GO TO THE ER IMMEDIATELY. Self-care: Rest as much as possible. Slowly start to do more each day. Take the medicines recommended by your doctor for fever, body aches, cough, or headaches. (Tylenol for aches/pains/fever as needed) (Antihistamines like Claritin or Benadryl as needed for drainage) (Delsym and cough drops/throat lozenges as needed for cough) Drink more liquids as directed to help thin and loosen mucus so it is easier to cough up. Liquids such as water, fruit juice, and broth also help keep you hydrated. Soothe a sore throat by gargling with warm salt water. Make salt water by dissolving ?? teaspoon salt in 1 cup warm water (8 ounces). Older children and adults can also use throat lozenges, ice chips, or sore throat spray. Use a humidifier or vaporizer to increase air moisture in your home. This may make it easier to breathe and help decrease coughing. Use saline nasal drops as directed to relieve congestion. Apply petroleum-based jelly around the outside of nostrils to decrease irritation from blowing your nose. DO NOT smoke or vape. Nicotine and other chemicals in cigarettes and cigars can make your symptoms worse. Monitor your symptoms: Seek medical attention right away if your symptoms get worse, such as if you are having difficulty breathing, shortness of breath, new confusion or inability to arouse, or bluish lips or face. If you have a pulse ox monitor at home, monitor your oxygen saturations with this device. If you find your Oxygen Saturation is falling 92% or below please notify your PCP right away or seek medical attention. Or if you experience fever uncontrolled with antipyretics, shortness of breath, chest discomfort, uncontrolled n/v/d If you have a medical emergency, call 911 and notify the EMS personnel that you have or are being evaluated for COVID-19. Put on a facemask before emergency medical services arrive [facility] Information: While waiting for your COVID-19 test result or if your COVID-19 test is positive: ISOLATE: Stay home except to get medical care! Separate yourself from other people and pets in your home: Do not go to work, school, or public areas, such as stores or social gatherings. Do not use public transportation. If available, stay in a separate bedroom and use a separate bathroom. Ask others to care for your pets. (If possible) Wear a facemask when around other people or pets. Cover your mouth and nose with a tissue when you cough or sneeze. If a tissue is not available, cough or sneeze into your upper sleeve (not your hands). Throw tissues away in trash-can that has a bag in it. Empty your trash daily. Always wash your hands after you throw away the tissue or garbage. If you test Positive for COVID-19 Given what we currently know about COVID-19 and the Omicron variant, CDC is shortening the recommended time for isolation from 10 days for people with COVID-19 to 5 days, if asymptomatic, followed by 5 days of wearing a mask when around others. The change is motivated by science demonstrating that the majority of SARS-CoV-2 transmission occurs early in the course of illness, generally in the 1-2 days prior to onset of symptoms and the 2-3 days after. Therefore, people who test positive should isolate for 5 days and, if asymptomatic at that time, they may leave isolation if they can continue to mask for 5 days to minimize the risk of infecting others. Quarantine for those exposed to COVID-19 Additionally, CDC is updating the recommended quarantine period for those exposed to COVID-19. For people who are unvaccinated or are more than six months out from their second mRNA dose (or more than 2 months after the J&J vaccine) and not yet boosted, CDC now recommends quarantine for 5 days followed by strict mask use for an additional 5 days. Alternatively, if a 5-day quarantine is not feasible, it is imperative that an exposed person wear a well-fitting mask at all times when around others for 10 days after exposure. Individuals who have received their booster shot do not need to quarantine following an exposure, but should wear a mask for 10 days after the exposure. For all those exposed, best practice would also include a test for SARS-CoV-2 at day 5 after exposure. If symptoms occur, individuals should immediately quarantine until a negative test confirms symptoms are not attributable to COVID-19. Isolation relates to behavior after a confirmed infection. Isolation for 5 days followed by wearing a well-fitting mask will minimize the risk of spreading the virus to others. Quarantine refers to the time following exposure to the virus or close contact with someone known to have COVID-19. Both updates come as the Omicron variant continues to spread throughout the [place] and reflects the current science on when and for how long a person is maximally infectious. If You Were Exposed to Someone with COVID-19 (Quarantine) If you: Have been boosted OR Completed the primary series of Pfizer or Moderna vaccine within the last 6 months OR Completed the primary series of J&J vaccine within the last 2 months Wear a mask around others for 10 days. Test on day 5, if possible. If you develop symptoms get a test and stay home. If you: Completed the primary series of Pfizer or Moderna vaccine over 6 months ago and are not boosted OR Completed the primary series of J&J over 2 months ago and are not boosted OR Are unvaccinated Stay home for 5 days. After that continue to wear a mask around others for 5 additional days. If you can? t quarantine you must wear a mask for 10 days. Test on day 5 if possible. If you develop symptoms get a test and stay home If You Test Positive for COVID-19 (Isolate) Everyone, regardless of vaccination status. Stay home for 5 days. If you have no symptoms or your symptoms are resolving after 5 days, you can leave your house. Continue to wear a mask around others for 5 additional days. If you have a fever, continue to stay home until your fever resolves. Acute hip pain, left 12/15/2022 Assessment & Plan (12/15/2022 9:57 AM CDT): ? Trochanteric bursitis versus piriformis versus other Will check x-ray Will start a Medrol Dosepak Referral to orthopedics and physical therapy placed Continue supportive care Call for questions or concerns Left leg pain 12/15/2022 Assessment & Plan (12/15/2022 9:57 AM CDT): ? Related to left hip versus piriformis and radiation of pain Will start Medrol Dosepak Will refer to physical therapy Continue supportive care Lidoderm patch and Robaxin prescribed Encouraged to use a cane with ambulation to prevent falls Update me with questions or concerns Allergic rhinitis due to animal hair and dander 05/22/2022 Assessment & Plan (05/22/2022 2:51 PM HOE WORKER): Chronic, entering her allergy season Continue current regimen Update me with any changes Allergic rhinitis due to pollen 05/22/2022 Assessment & Plan (05/22/2022 2:51 PM HOE WORKER): Chronic, entering her allergy season Continue current regimen Update me with any changes Hypertrophy of nasal turbinates 05/22/2022 Bilateral carotid artery stenosis 11/03/2021 Assessment & Plan (05/22/2022 2:55 PM HOE WORKER): Chronic, stable Continue crestor Continue to follow with cardiology at [place]- she is scheduled for one year Assessment & Plan (11/24/2021 5:09 PM CDT): Recheck study in 1 year Call for questions or concerns Assessment & Plan (11/03/2021 4:44 PM CDT): We discussed me placing a referral for vascular surgery- does want to hold off Set up an appointment with cardology Continue crestor 40 mg nightly Hx of blood clots 11/17/2020 History of diverticulitis 11/17/2020 Assessment & Plan (11/17/2020 2:41 PM CDT): Keep appointment with Dr Olivier 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 08/12/2020 Assessment & Plan (05/22/2022 2:57 PM HOE WORKER): Chronic, improved except for work stress Continue healthy changes for her mood Update me with any changes Assessment & Plan (11/17/2020 2:39 PM CDT): Doing well Continue current regimen Call for questions or concerns Assessment & Plan (08/12/2020 7:59 PM CDT): Patient reiterated no suicidal thoughts at this time; zoloft 25 mg daily take medication as directed discussed side effects of medication with patient encouraged healthy diet and exercise encouraged patient to see a counselor use support structures you have in place try to work on healthy sleep habits If mood worsens or changes, please contact the office Anything emergent, to the er Well adult exam 11/17/2019 Overview (05/25/2023): Encouraged a healthy diet, and regular physical activity to her level Wear sun screen, seat belts No texting/drinking and driving Health Maintenance: Last PAP: fall 2019- Neg Last mammogram: 01/19, 01/21, 01/22 WNL Last DEXA: ordered Last colonoscopy: 01/2022- repeat in 3 years Last Tdap:: up to date Last pneumonia: today Last Shingrix:up to date Last Flu: up to date Last COVID: reviewed, encouraged Assessment & Plan (05/22/2022 2:50 PM HOE WORKER): Encouraged a healthy diet, and regular physical activity to her level Wear sun screen, seat belts No texting/drinking and driving Health Maintenance: Last PAP: fall 2019- Neg Last mammogram: WNL Last colonoscopy: 01/2022- repeat in 3 years Last Tdap: 04/2013 Last pneumonia: due booster Last Shingrix:up to date Last Flu: up to date Last COVID: reviewed, encouraged Assessment & Plan (11/17/2020 2:35 PM CDT): Encouraged a healthy diet, and regular physical activity to her level Wear sun screen, seat belts No texting/drinking and driving Health Maintenance: Last PAP: fall 2019- Neg Last mammogram: ordered Last colonoscopy: 08/2016-repeat in 5 years Last Tdap: 04/2013 Last pneumonia/Prevnar:01/2018 Last Shingrix:up to date Last Flu: up to date Last COVID: up to date Assessment & Plan (11/17/2019 12:46 PM CDT): Chronic conditions and health maintenance reviewed. Counseled on goal BMI, healthy diet & lifestyle, and advise moderate CV exercise 150 min/wk or high-intensity exercise 75 min/wk. Chronic interstitial cystitis 11/14/2019 Assessment & Plan (05/22/2022 2:56 PM HOE WORKER): Chronic Continue to follow with urology Update me with any changes Call for questions Assessment & Plan (11/17/2020 2:39 PM CDT): Continue to follow with urology Assessment & Plan (01/02/2020 9:52 AM CDT): Continue to follow with urology Update me with any changes Immunization reaction 06/03/2019 Overview (06/03/2019): Sx are from normal immune response to vaccine. Ibuprofen 800mg TID prn and albuterol prn chest tightness. RTC if sx worsen or go to ED if severe allergic sx's. Mitral valve annular calcification 03/11/2019 Assessment & Plan (11/17/2020 5:05 PM CDT): Continue to follow Cardiology Anxiety 03/11/2019 Assessment & Plan (05/22/2022 2:53 PM HOE WORKER): Chronic, slightly increased as she is having work issues Reviewed healthy changes for mood Update me if they change or worsen Call for question sor concerns Assessment & Plan (11/17/2020 2:36 PM CDT): Stable Continue current xanax and zoloft Continue supportive care Assessment & Plan (08/12/2020 7:58 PM CDT): Worse Will start zoloft 25 mg daily Encouraged to consider a therapist Reviewed the risks/benefits of medication Reviewed healthy changes to improve mood Follow up in 4-6 weeks Call for questions or concerns Chronic neck pain 02/07/2019 Assessment & Plan (02/07/2019 10:07 AM HOE WORKER): Take ibuprofen 600mg (has a prescription at home) two-three times a day with meals for a week. Also, can take Robaxin as directed (has prescription at home). Apply warm compresses to neck in the evening for muscle relaxaton. If symptoms worsen, don't resolve, or new symptoms develop, follow-up with PCP. Osteoarthritis 12/23/2018 Assessment & Plan (11/17/2020 5:05 PM CDT): Symptoms in her back in finger. She was previously followed by Dr. Conner Will refer to Hand surgery given her hand/finger discomfort Continue supportive care Call for questions Vitamin D deficiency 12/23/2018 Assessment & Plan (11/17/2020 5:06 PM CDT): Continue vitamin-D Atopic conjunctivitis, bilateral 12/23/2018 Assessment & Plan (05/22/2022 2:53 PM HOE WORKER): Chronic, persistent Continue flonase Encouraged follow up with GI Chronic rhinitis 12/23/2018 Renal cyst 12/23/2018 Type 2 diabetes mellitus wit h microalbuminuria, without long-term current use of insulin 10/11/2018 Assessment & Plan (12/15/2022 9:56 AM CDT): Chronic, controlled Continue Jardiance Labs ordered Set up follow-up in three months Set up diabetic eye exam Call for questions or concerns Assessment & Plan (05/22/2022 3:00 PM HOE WORKER): Chronic, stable Continue current regimen Continue healthy changes Encouraged scheduling her diabetes eye exam Update me with any changes or concerns Assessment & Plan (12/29/2021 6:30 PM CDT): Chronic, stable Continue her current regimen Continue healthy changes She is due for her diabetes eye exam Again, this would put her at risk for COVID infection Encouraged continue healthy changes Call for questions or concerns Assessment & Plan (01/02/2020 9:45 AM CDT): A1C at goal She has her follow up scheduled with nephrology Continue current regimen Continue working on healthy changes Update me with any changes Recheck labs in 6 months Call for questions or concerns Assessment & Plan (11/17/2019 12:46 PM CDT): DM Type II chronic. and controlled.{ Lab Results Component Value Date HGBA1C 6.7 (H) 11/08/2019 A1C at goal. Continue current meds. <7.0. BP <130/80 on DARSHAN/ARB is at goal. Continue current meds. Continue high dose statin Continue ASA Screening labs to include A1C, lipids, CMP, and urine microalbumin are up to date. No peripheral neuropathy- diabetic foot exam performed today and patient encouraged to maintain good foot care. Annual dilated retinal exam-due Flu vaccine: up to date. Pneumonia vaccine: up to date. Treatment plan for findings is as follows: Continue current management. Counseled extensively on diabetic diet and adherence/risks of non-compliance. Goal of care is treatment of cardiovascular risk factors to individualized targets: weight loss to achieve BMI of 19-25 and goal of cardiovascular exercise at least 5 days a week. Assessment & Plan (05/30/2019 10:18 AM HOE WORKER): Blood testing indicates acceptable control of your diabetes at this time. No medication changes are required. I would recommend that you continue blood sugar testing and keep log Please bring this record to every office visit. The most useful fingerstick blood sugar is at fasting before your 1st meal of the day. The next most useful blood sugar is before you're dinner meal. The 3rd most useful blood sugar is 2 hr after any meal. If FASTING blood sugars are consistently above 150 make an appointment for an earlier office visits to adjust your diabetes regimen.. All diabetics should be seen at least twice yearly,--some required visits 3 or 4 times yearly depending on the complexity of the medication regimen and variability of the diabetic control . This is the most recent diabetes lab information. Lab Results Component Value Date HGBA1C 6.5 (H) 05/29/2019 HGBA1C 6.0 (H) 10/09/2018 HGBA1C 7.0 (H) 10/22/2017 Lab Results Component Value Date MICROALBUR 88.2 (H) 05/29/2019 LDLCALC 87 01/02/2018 CREATININE 0.7 05/29/2019 Continue healthy meal planning and regular exercise. Remember too much carbohydrate makes the blood sugar go up too high, avoid concentrated sweets such as juice, choose complex carbohydrates such as whole grain breads and fruit. If you choose to check your blood sugars, test before meals, record results and bring this information to your office followup visit. Blood sugar goals are as follows: Fasting blood sugar less than 120, all other pre-meal blood sugar should be less than 150. If your blood sugars are always out of range please contact my office before your followup appointment to adjust medications or change your diet. Assessment & Plan (10/11/2018 2:14 PM CDT): Very well controlled. A1C 6.0% Continue current medications Dyslipidemia 06/26/2017 Overview (07/17/2018): LDL not at goal on Crestor 40 mg daily Assessment & Plan (05/22/2022 2:58 PM HOE WORKER): Chronic, stable Continue crestor Follow up labs ordered Assessment & Plan (11/24/2021 5:10 PM CDT): Chronic, stable Continue Crestor Assessment & Plan (11/17/2020 2:40 PM CDT): Continue Crestor-LDL near goal Encouraged to continue to follow with Cardiology Update me with any changes Assessment & Plan (01/02/2020 9:43 AM CDT): LDL above goal, but has had difficulty with other medication options. Will have her review it with Dr. Lee at her next visit Call for questions or concerns Assessment & Plan (05/30/2019 10:17 AM HOE WORKER): Patient follows with Cardiology. Condition controlled, continue current treatment. Assessment & Plan (10/11/2018 2:17 PM CDT): Follows with Dr. Graham. Has upcoming appointment Follow low cholesterol diet Mild persistent asthma, uncomplicated 12/07/2016 Assessment & Plan (07/11/2023 2:31 PM CDT): Chronic. Breathing has improved since initial diagnosis with COVID. Continue Symbicort twice daily and albuterol inhaler up to twice per week. Assessment & Plan (05/22/2022 2:59 PM HOE WORKER): Chronic, stable Continue current inhalers Set up follow up with pulmonary Update me with any changes Assessment & Plan (12/29/2021 6:29 PM CDT): Chronic, stable Continue albuterol, QVAR Continue to follow with her washer carcass Update me with changes or concerns FMLA completed with this as part of it given this would put her at risk for COVID Assessment & Plan (11/17/2020 2:44 PM CDT): Stable Continue current regimen Continue supportive care Assessment & Plan (08/12/2020 7:57 PM CDT): Continue inhalers Continue to monitor symptoms Call if they change or worsen Coronary artery disease invo lving grand traverse coronary artery of grand traverse heart without angina pectoris 11/13/2016 Overview (07/17/2018): Status post drug-eluting stent with a Synergy 3.0 x 16 mm drug-eluting stent in the mid LAD with 50-70% stenosis in the mid to distal left circumflex artery with a negative IFR and just 20% stenosis in the right coronary artery on catheterization done 10/31 Assessment & Plan (05/22/2022 2:57 PM HOE WORKER): Chronic, stable Continue to follow with cardiology Continue current regimen Assessment & Plan (12/29/2021 6:27 PM CDT): Chronic, stable Continue to follow with Cardiology Continue Zebeta, hydrochlorothiazide, aspirin, Imdur, Crestor as prescribed FMLA completed regarding this issue as a puts her at risk for COVID Update me with changes or concerns Assessment & Plan (11/24/2021 5:10 PM CDT): Followed by Cardiology Regimen recently adjusted given her hypotension Continue to follow with her cream gatherer Continue Zebeta in Imdur as prescribed Update me with any changes or concerns Assessment & Plan (09/12/2021 5:03 PM CDT): With an episode of chest discomfort. I advised her that if she has chest pain like she did, she needs to go to the emergency room. If she has no one that can automobile drivers, that does mean calling 911 Continue to follow with Dr. Dyer Continue current regimen Update me if her symptoms change or worsen Assessment & Plan (11/17/2020 12:19 PM CDT): Continue to follow with Cardiology Continue Crestor, aspirin, bisoprolol, Plavix Update me with any changes Assessment & Plan (01/02/2020 9:41 AM CDT): Continue current regimen for now Will place referral for Cardiology when she is ready Continue healthy changes Call for questions or concerns Assessment & Plan (05/30/2019 10:17 AM HOE WORKER): Patient follows with Cardiology. Condition controlled, continue current treatment. Assessment & Plan (10/11/2018 2:18 PM CDT): Follows with cardiology - has upcoming appointment with Dr. Graham. On Crestor 40 On Jardiance Aortic atherosclerosis 08/08/2016 Overview (09/11/2018): Noted on transesophageal echocardiogram, goal LDL should be less than 70 mg/dL. Assessment & Plan (05/22/2022 2:55 PM HOE WORKER): Chronic, stable Continue crestor Assessment & Plan (11/17/2020 2:37 PM CDT): Continue to follow with cardiology Assessment & Plan (01/02/2020 9:41 AM CDT): Continue current regimen for now Will place referral for Cardiology when she is ready Continue healthy changes Call for questions or concerns Assessment & Plan (05/30/2019 10:17 AM HOE WORKER): Patient follows with Cardiology. Condition controlled, continue current treatment. Chronic left-sided low back pain with left-sided sciatica 07/21/2016 Assessment & Plan (05/22/2022 2:56 PM HOE WORKER): Chronic, slightly improved today Continue supportive care Update me if s/sx worsen or do not improve Assessment & Plan (09/12/2021 4:46 PM CDT): Will order MRI- she has tried steroids, muscle relaxer without, gabapentin improvement will write letter for telework will order norco for break through pain-reviewed risks/benefits/side effects Will refer pain management- will attempt to get her with [facility] Continue supportive care Call for questions or concerns Assessment & Plan (11/17/2020 2:38 PM CDT): With slight flare Will restart robaxin Consider steroid burst- but it will raise her blood sugars Motrin as needed- use sparingly Call for questions or concerns Assessment & Plan (10/11/2018 2:18 PM CDT): MRI denied. Continue home exercises Will repeat MRI when home exercises completed Hypertension 10/13/2015 Overview (07/17/2018): Controlled Assessment & Plan (05/22/2022 2:58 PM HOE WORKER): Chronic, stable Continue current regimen- blood pressure at goal Continue current regimen Assessment & Plan (12/29/2021 6:28 PM CDT): Blood pressure improved currently Continue hydrochlorothiazide and Zebeta Continue to follow with her cream gatherer Update me if her symptoms change or worsen Update me with any concerns Assessment & Plan (11/24/2021 5:22 PM CDT): Chronic, slightly elevated today Continue her current regimen Continue to monitor her blood pressure Update me if her symptoms change or worsen Call for questions or concerns Assessment & Plan (11/03/2021 4:42 PM CDT): Blood pressure is better, but still on the soft side Continue her current regimen for now Get BP cuff, and update cardiology with how she is doing Update me with any changes Call for questions or concerns Assessment & Plan (11/17/2020 2:42 PM CDT): Well controlled Continue current regimen Assessment & Plan (01/02/2020 9:46 AM CDT): At goal Continue current regimen Continue healthy changes Call for questions or concerns Assessment & Plan (05/30/2019 10:17 AM HOE WORKER): Patient follows with Cardiology. Condition controlled, continue current treatment. Assessment & Plan (10/11/2018 2:16 PM CDT): Well controlled. Follows with Dr. Graham - has upcoming appointment Hypothyroidism 10/13/2015 Overview (01/02/2020): 11/2019 - labs normal Assessment & Plan (05/22/2022 2:59 PM HOE WORKER): Chronic, stable Follow up labs ordered Continue current dose of synthroid Assessment & Plan (01/04/2021 5:38 PM CDT): Follow-up labs were within normal limits Continue levothyroxine at current dose Assessment & Plan (11/17/2020 2:42 PM CDT): 05/2020- TSH is normal Continue current regimen Assessment & Plan (01/02/2020 9:47 AM CDT): Labs normal 11/2019 Continue current regimen Assessment & Plan (05/30/2019 10:17 AM HOE WORKER): Cont current dose is euthyroid Report if has frequent palpitations, irreg heart beat or sudden changes in weight. Report if develops problem swallowing or hoarseness Assessment & Plan (10/11/2018 2:14 PM CDT): At target therapy - last labs 07/2018 stable. Cont current tx Resolved Problems Problem Noted Date Diagnosed Date Resolved Date Upper respiratory tract infection 04/24/2023 05/25/2023 Assessment & Plan (04/24/2023 2:56 PM HOE WORKER): Rapid covid, flu, strep negative PCR and throat culture pending Supportive care, rest, clear sugar-free fluids (water), steam inhalation/humidifier Warm salt water gargles OTC medications (Flonase, Nasal saline, Zyrtec/Claritin, Tylenol, Mucinex/Delsym per package instructions) Disorder of vocal cord 05/22/202205/25 Diverticulitis 04/18/2022 05/25/2023 Assessment & Plan (05/22/2022 2:57 PM HOE WORKER): Recurrent episodes Continue to follow with GI Edna cooper if her symptoms change/worsen Call for questions Assessment & Plan (04/24/2022 1:44 PM HOE WORKER): Recurrent Complete course of augmentin Set up follow up with Dr Soy cooper with any questions or concerns Call for questions Body aches 04/22/2021 05/22/2022 Assessment & Plan (04/22/2021 2:01 PM HOE WORKER): Likely minor reaction from Booster. Recommend OTC Bendryl. Along with Tylenol/Iburprofen. Expect spontaneous resolution. Hydration. Injury of ear canal 06/26/2020 05/22/19 Assessment & Plan (11/17/2020 2:43 PM CDT): Resolved Continue to monitor Assessment & Plan (06/26/2020 10:41 AM CDT): Advised to go to ER for further evaluation and management. Pharyngitis 11/27/2019 11/17/2020 Assessment & Plan (11/27/2019 8:41 AM CDT): Will do a trial of amoxil Rest, hydrate Salt water gargles Tylenol is needed Call for questions or concerns Obesity, unspecified 11/14/2019 020 Assessment & Plan (11/17/2019 12:42 PM CDT): Body mass index is 30.54 kg/m??. BMI Follow-up includes: nutrition counseling, exercise counseling and education provided. Recommend weight loss to achieve goal BMI. Counseled on weight loss to include monitoring calories/day, healthy diet & lifestyle, and moderate CV exercise 150 min/wk or high-intensity exercise 75 min/wk. Diverticulitis 03/11/2019 11/17/2020 Acute sinusitis, unspecified 12/23/2018 05/30/2019 Costochondritis 12/23/2018 05/30/2019 Ear pressure, left 12/23/2018 9 Sore throat 12/17/2018 05/30/2019 Assessment & Plan (12/17/2018 5:56 PM CDT): Overall Condition: New Acute Problem Treatment: New Medication: keflex Follow up PRN Acute bacterial conjunctivitis of left eye 11/25/2018 05/30/2019 Assessment & Plan (11/25/2018 6:28 PM CDT): Overall Condition New Acute Problem. Treatment: New Medication: Continue prescribed medication from urgent care. complete the course. Follow up PRN Tachycardia 06/26/2016 11/17/2020 Overview (09/11/2018): Sinus tachycardia frequently about 35% of the time on a 24-hour Holter monitor done on 05/30/2016 controlled on bisoprolol Persistent asthma without complication 10/13/2015 05/25/2023 Need for prophylactic vaccin ation with combined [id number]-txukfxi-lmkywuqzp (DTP) vaccine 04/30/2013 05/30/2019 Encounters Date Type Department Care Team Description 04/22/2024 Telephone [facility] Family Medicine [address] [phone] Ginette Peoples MD Medical Question/Miscellane ous 04/17/2024 Telephone [facility] Family Medicine [address] [phone] Ginette Peoples MD Test Results 04/15/2024 2:09 PM HOE WORKER - 04/15/2024 11:59 PM HOE WORKER Hospital Encounter [facility] Diagnostic [facility] [place] [address] Chronic neck pain Discharge Disposition: Discharge to home or self care 04/15/2024 1:30 PM HOE WORKER Office Visit [address] [phone] Heather Zhao PA Acute non-recurrent frontal sinusitis (Primary Dx); Chronic neck pain; BMI 26.0-26.9,adult 04/14/2024 Nurse Triage [address] [phone] Ginette Peoples MD 03/14/[address] [phone] Ginette Peoples MD Symptom Based Call 03/10/2024 1:30 PM HOE WORKER Office Visit [address] [phone] Poncho Alejandra MD Neck pain on left side (Primary Dx); Chronic left shoulder pain; Chronic left-sided thoracic back pain; Periumbilical abdominal cramping; Diarrhea, unspecified type; Overweight 03/10/2024 Nurse Triage [address] [phone] Selene Elaine RN 03/10/[address] [phone] Ginette Peoples MD Symptom Based Call 02/05/2024 7:00 PM HOE WORKER Office Visit [facility] [address] [phone] Maggy Williamson PA Fatigue, unspecified type (Primary Dx); Diarrhea, unspecified type; Rib pain on left side; Acute left-sided thoracic back pain; Neck pain on left side 02/05/[address] [phone] Ginette Peoples MD Symptom Based Call 02/05/2024 Nurse Triage [address] [phone] Ginette Peoples MD 02/04/2024 Telephone [facility] [address] [phone] Ginette Peoples MD Medical Question/Miscellane ous from Last 3 Months Immunizations Name Administration Dates Next Due Influenza, Quadrivalent, Sosa l Culture-based MDCK, Preservative Free, Antibiotic Free, Intramuscular 01/18/2018 Influenza, Quadrivalent, Hig h Dose, Preservative Free, Intrr 01/11/2023 Influenza, Quadrivalent, Spl it, Preservative Free, Intramuscular 03/04/2022,01/02/2020,03/08/2019 Influenza, Trivalent, Cell Culture-based MDCK, Preservative Free, Antibiotic Free, Intramuscular 01/18/2018 Influenza, Unspecified 03/10/2024(Deferr ed: Patient Refused),01/01/2024(Deferred: Patient decision),03/04/2022,12/31/2020,2020(Deferred: Patient Refused),03/08/2019 Pfizer SARS-CoV-2 Monovalent Vaccination (12+ Yrs) PURPLE 06/24/2020,06/01/2020 Pneumococcal Conjugate Pcv20 05/25/2023, 01/11/2023(Deferred: Patient Refused) Pneumococcal Polysaccharide PPV23 02/01/2018, Tdap 11/10/2021,04/30/2013 ZOSTER Recombinant 11/14/2019,05/30/2019 Surgical History Surgery Date Site/Laterality Comments IMAGE GUIDED DRAINAGE VISCER AL FLUID COLLECTION large left renal ABLATION uterus KNEE SURGERY Right COLONOSCOPY CALIXTO PROCEDURE STENT CARDIAC STENT PLACEMENT CARDIAC SURGERY Medical History Medical History Date Comments Diverticulosis Adenomatous colon polyp Hepatic steatosis Renal cyst Microscopic hematuria Hypertension Sciatica Hypothyroidism Hyperglyceridemia Obesity Pre-diabetes Chronic rhinitis Coronary artery disease Diabetes mellitus (HCC) Tachycardia 06/26/2016 Sinus tachycardi a frequently about 35% of the time on a 24-hour Holter monitor done on 05/30/2016 controlled on bisoprolol Asthma Family History Medical History Relation Name Comments Diabetes Brother Glaucoma Brother Heart disease Brother Heart disease Father Heart disease Maternal Grandfather Glaucoma Maternal Grandmother Heart disease Mother Hypertension Mother Heart disease Paternal Grandfather Kidney disease Paternal Grandfather No Known Problems Sister Relation Name Status Comments Brother Father Maternal Grandfather Maternal Grandmother Mother Paternal Grandfather Paternal Grandmother Sister Alive Social History Tobacco Use Types Packs/Day Years Used Date Smoking Tobacco: Never Smokeless Tobacco: Never Tobacco Cessation:Counseling Given: Not Answered Alcohol Use Standard Drinks/Week Comments Not Currently 0 (1 standard drink = 0.6 oz pur e alcohol) [facility] Utilities Answer Date Recorded In the past 12 months has th nothingGrinder electric, gas, oil, or water company threatened [...] Never 11/21/2023 How often do you attend jewish or taoist serv ices? Never 11/21/2023 Do you belong to any clubs o r organizations such as jewish groups, unions, fraternal or athletic groups, or [...] any time in the past 12 m [facility], were you homeless or living in a [facility] (including now)? 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 Not on file Not on file Obstetrics History Last Filed Vital Signs Vital Sign Reading Time Taken Comments Blood Pressure 130/70 04/15/2024 1:25 PM HOE WORKER Pulse 97 04/15/2024 1:25 PM HOE WORKER Temperature 36.4 ??C (97.5 ??F) 04/15/2024 1:25 PM CS T Respiratory Rate 16 04/15/2024 1:25 PM HOE WORKER Oxygen Saturation 98% 04/15/2024 1:25 PM HOE WORKER Inhaled Oxygen Concentration - - Weight 66.6 kg (146 lb 12.8 oz) 04/15/2024 1:25 PM HOE WORKER Height 160 cm (5' 3 ) 04/15/2024 1:25 PM HOE WORKER Body Mass Index 26 04/15/2024 1:25 PM HOE WORKER Plan of Treatment Health Maintenance Due Date Last Done Comments Hepatitis B Screening 12/06/1975 Osteoporosis Screening-Bone Density Scan 12/21/2016 12/21/2014, 12/21/2014 Dilated Eye Exam 08/01/2019 07/31/2018, 12/31/2017 Covid-19 Vaccine (4 2023-2 5 season) 2023 04/15/2021, 06/24/2020, 06/01/2020 Influenza Vaccine (#1) 2023 , 03/04/2022, 03/04/2022, Additional history exists Breast Cancer Screening-Mammogram 01/20/2024 01/19/2023, 01/07/2022, 06/30/2018 Foot Exam 05/25/2024 05/25/2023, 05/04, 04/24/2022, Additional history exists Hemoglobin A1C 05/25/2024 11/23/2023, 07/02, 06/20/2021, Additional history exists Well Visit 65+ 05/25/2024 05/25/2023, 05/04, 05/22/2022, Additional history exists Albumin Creatinine Ratio, Urine 11/22/2024 11/23/2023, 07/22/2022, 06/20/2021 Lipid Panel 11/22/2024 11/23/2023, 07/02, 06/20/2021, Additional history exists Fall Risk Assessment 01/09/2025 01/10/2024, 12/15/2022, 04/22/2022, Additional history exists eGFR 01/09/2025 01/10/2024, 11/01, 07/25/2022, Additional history exists Colon Cancer Screening-Colonoscopy 02/03/2025 02/03/2022, 09/29/2016 Depression Screening 04/15/2025 04/15/2024, 01/10/2024, 11/30/2023, Additional history exists DTaP/Tdap/Td Vaccine (3 - Td or Tdap) 11/11/2031 11/10/2021, 04/30/2013 Hepatitis C Screening Completed 07/26/2018 , 10/08/2017, 06/06/2016 Zoster Vaccine Completed 11/14/2019, 05/30/2019 Cervical Cancer Screening Discontinued 2021, 12/01/2018, 07/30/2017 Colon Cancer Screening-CT Colonography Discontinued 02/03/2022, 09/29/2016 Colon Cancer Screening-DNA Stool Discontinued 02/04/20 22, 09/29/2016 Colon Cancer Screening-FIT Discontinued 02/03/2022, Colon Cancer Screening-Sigmoidoscopy Discontinued 02/03/2022, 09/29/2016 Pneumococcal vaccine 65+ Completed 024, 02/01/2018, 04/30/2013 Procedures Procedure Name Priority Date/Time Associated Diagnosis Comments XR SPINE CERVICAL 2 OR 3 VIEWS Schedule Routine, Read Routine (OP Routine) 04/15/2024 2:22 PM HOE WORKER Chronic neck pain POC INFLUENZA A/B, COVID-19 ANTIGEN Routine 02/05/2024 7:44 PM HOE WORKER Fatigue, unspecified type POCT RAPID STREP Routine 02/05/2024 7:44 PM HOE WORKER Fatigue, unspecified type EGFR Routine 01/10/2024 3:36 PM CDT Myalgia Community acquired pneumonia Dyspnea, unspecified type HEMOGLOBIN A1C Routine 11/23/2023 2:38 PM CDT Type 2 diabetes mellitus with microalbuminuria, without long-term current use of insulin (HCC) LIPID PANEL Routine 11/23/2023 2:38 PM CDT Screening, lipid ALBUMIN CREATININE RATIO, URINE Routine 11/23/2023 2:38 PM CDT Type 2 diabetes mellitus with microalbuminuria, without long-term current use of insulin (HCC) HM MAMMOGRAPHY Routine 01/19/2023 COLONOSCOPY Routine 02/03/2022 HM PAP SMEAR Routine 01/19/2022 HM DIABETES FOOT EXAM Routine 09/30/2018 HM DIABETES EYE EXAM Routine 07/31/2018 HEPATITIS C ANTIBODY Routine 07/26/2018 3:45 PM CDT DEXA AXIAL SKELETON BONE DENSITY 1 OR MORE SITES Routine 12/21/2014 3:30 PM CDT from Last 3 Months or Most Recently Relevant to Health Maintenance Results * XR Spine Cervical 2 or 3 Views (04/15/2024 2:22 PM HOE WORKER) Anatomical Region Laterality Modality Spine N/A Computed Radiogr aphy 04/16/2024 12:5 8 PM HOE WORKER Narrative 04/16/2024 1:03 PM HOE WORKER EXAM DESCRIPTION: XR SPINE CERVICAL 2 OR 3 VIEWS REASON FOR STUDY: chronic neck pain ?? Onset of left neck pain that radiates to her left shoulder and down her left arm. Also has tingling into her hand. Onset January 2024 ?? TECHNIQUE: 2 ??radiographic view(s) of the ??cervical ??spine. COMPARISON: CT soft tissue neck dated 12/26/2019 and cervical spine radiographs dated 01/10/2016. FINDINGS: ALIGNMENT: There is straightening of the normal cervical lordosis. ?? There is slight anterolisthesis of C4 on C5. ??Minimal retrolisthesis of C6 on C7. VERTEBRAE: Vertebral body heights appear maintained compared to the prior examinations. ??Endplate osteophyte formation has increased compared to the prior examination as have facet degenerative changes. ??These are greater on the right than the left. ?? DISCS: There is disc space narrowing at all levels except C2-3. ??Disc space narrowing has progressed compared to the prior study. SOFT TISSUES: Prevertebral soft tissue structures are within normal limits in thickness. ??There is dense atherosclerotic calcification involving the common carotid arteries bilaterally. ??There is some calcification of the thyroid cartilage. ?? IMPRESSION: 1. ?? Cervical spondylosis and multilevel degenerative disc disease with straightening of the cervical lordosis. ??No definite fracture. ??Given radicular symptoms to the left upper extremity, consider MRI for further evaluation. THIS IS AN ELECTRONICALLY VERIFIED FINAL REPORT 04/16/2024 1:03 PM - Electronically signed by ??Lyn Allen M.D. TW: JERI D: ??04/16/2024 1:03 PM T: ??04/16/2024 1:03 PM Report ID: [id number] Reading Location: ??[id number] Procedure Note Lyn Allen MD - 04/16/2024 EXAM DESCRIPTION: XR SPINE CERVICAL 2 OR 3 VIEWS REASON FOR STUDY: chronic neck pain Onset of left neck pain that radiates to her left shoulder and down herleft arm. Also has tingling into her hand. Onset January 2024 TECHNIQUE: 2 radiographic view(s) of the cervical spine. COMPARISON: CT soft tissue neck dated 12/26/2019 and cervical spine radiographs dated 01/10/2016. FINDINGS: ALIGNMENT: There is straightening of the normal cervicallordosis. There is slight anterolisthesis of C4 on C5. Minimal retrolisthesis of C6on C7. VERTEBRAE: Vertebral body heights appear maintained compared to the prior examinations. Endplate osteophyte formation has increased compared to the prior examination as have facet degenerative changes. These are greateron the right than the left. DISCS: There is disc space narrowing at all levels except C2-3. Discspace narrowing has progressed compared to the prior study. SOFT TISSUES: Prevertebral soft tissue structures are within normal limitsin thickness. There is dense atherosclerotic calcification involving thecommon carotid arteries bilaterally. There is some calcification of the thyroid cartilage. IMPRESSION: 1. Cervical spondylosis and multilevel degenerative disc disease with straightening of the cervical lordosis. No definite fracture. Given radicular symptoms to the left upper extremity, consider MRI for further evaluation. THIS IS AN ELECTRONICALLY VERIFIED FINAL REPORT 04/16/2024 1:03 PM - Electronically signed by Lyn Allen M.D. TW: JERI Report ID: [id number] Reading Location: [id number] Heather ZAPIEN IMG XR PROCEDURES Final R esult * POC Influenza A/B, COVID-19 antigen (02/05/2024 7:44 PM HOE WORKER) [facility] Influenza A Ag, POC Negative Negative [facility] Influenza B Ag, POC Negative Negative [facility] COVID-19 Ag POC Presumptive Negative Presumptive Negative, Invalid [facility] Nasal 02/05/2024 7:44 PM HOE WORKER us Maggy ZAPIEN POINT OF CARE TEST ORDERABLE S Final Result Performing Organization Address [facility] de Phone Number [facility] [address] [place] [address] * POCT rapid strep A (02/05/2024 7:44 PM HOE WORKER) [facility] Rapid Strep A, POC Negative Negative [facility] Swab 02/05/2024 7:44 PM HOE WORKER Maggy ZAPIEN POINT OF CARE TEST ORDERABLE S Final Result Performing Organization Address [facility] de Phone Number [facility] [address] [place] [address] * eGFR (01/10/2024 3:36 PM CDT) [facility] eGFR >90 >=60 mL/min/1. 73 m2 Comment: Interpretive Data Reference Interval Normal ?>/= 90 mL/min/1.73m2 Mildly decreased* ? 60 - 89 mL/min/1.73m2 Mildly to moderately decreased ?45 - 59 mL/min/1.73m2 Moderately to severely decreased ??30 - 44 mL/min/1.73m2 Severely decreased ?15 - 29 mL/min/1.73m2 Kidney Failure ?< 15 ??mL/min/1.73m2 *Relative to young adult level Estimated glomerular filtration rate is determined by the 2020 CKD-EPI equation recommended by the National Kidney Foundation (A Unifying Approach to GFR Estimation: Recommendations of the NKF-ASK Task Force on Reassessing the Inclusion of Race in Diagnosing Kidney Disease, JASN 202). The CKD-EPI equation should not be used for patients with unstable renal function and has not been validated in children and those over 70. Current interpretive data was last reviewed 2021. Testing performed by: [address] [address] Blood 01/10/2024 3:36 PM CDT 01/10/2024 6:13 PM CDT us Heather ZAPIEN LAB BLOOD ORDERABLES Kelsea l Result Performing Organization Address City/[facility]/ZIP Co de Phone Number [id number] [place] [address] * (ABNORMAL) Albumin Creatinine Ratio, Urine (11/23/2023 2:38 PM CDT) Albumin Ur 70.3 mg/L Comment: Interpretive Data No reference range established. Current interpretive data was last revised 2018. Testing performed by: [address] [address] Creatinine Ur 61.6 mg/dL SUNDAY Comment: Interpretive Data No reference range established. Current interpretive data was last revised 2018. Testing performed by: [address] [address] Albumin Creatinine Ratio, Ur 114(H) 1 - 29 mg/g SUNDAY Comment:Testing performed by : [address] [address] Urine 11/23/2023 2:38 PM CDT 11/23/2023 4:03 PM CDT us Ginette Peoples MD LAB URINE ORDERABLE S Final Result Performing Organization Address City/[facility]/ZIP Co de Phone Number [address] [place] [address] * (ABNORMAL) Hemoglobin A1c (11/23/2023 2:38 PM CDT) Pathologist [facility] Hgb A1C 7.9(H) 4.0 - 5.6 % Comment:Testing performed by : [address] [address] Estimated Average Glucose 180 mg/dL SUNDAY Comment: The ADA recommends reporting an estimated Average Glucose (eAG) with all Hemoglobin A1c results using the equation derived from a study of 507 normal and diabetic adults. ??Minority populations were underrepresented and children were not included. ?? (Diabetes Care 31:0384-8479, 2008). ??The eAG is not equivalent to a fasting glucose. Testing performed by: [address] [address] Blood 11/23/2023 2:38 PM CDT 11/23/2023 4:04 PM CDT us Ginette Peoples MD LAB BLOOD ORDERABLE S Final Result [facility] [address] [facility] [place] [address] * (ABNORMAL) Lipid panel (11/23/2023 2:38 PM CDT) Pathologist [facility] Cholesterol 172 30 - 199 mg/dL Comment: Interpretive Data Ages < or = 19 years ??Acceptable: ? <170 mg/dL ??Borderline high: ??170-199 mg/dL ??High: ? >or= 200 mg/dL Ages > or = 20 years ??Desirable: ?<200 mg/dL ??Borderline high: ??200-239 mg/dL ??High: ? >or= 240 mg/dL Literature References: 1. Expert Panel on Integrated Guidelines for Cardiovascular Health and Risk Reduction in Children and Adolescents. Pediatrics 2011;128:S213 2. NCEP Expert Panel. Circulation 2004;110:227 Current Interpretive Data was last revised on 2017. Testing performed by: [address] [address] Triglycerides 260(H) <=149 mg/dL SUNDAY Comment: Interpretive Data Ages < or = 9 years ??Acceptable: ? <75 mg/dL ??Borderline high: ??75-99 mg/dL ??High: ? >or= 100 mg/dL Ages 10 to 20 years ??Acceptable: ? <90 mg/dL ??Borderline high: ??90-129 mg/dL ??High: ? >or= 130 mg/dL Ages > or = 20 years ??Desirable: ?<150 mg/dL ??Borderline high: ??150-199 mg/dL ??High: ? 200-499 mg/dL ?Very high: ?? >or= 499 mg/dL Literature References: 1. Expert Panel on Integrated Guidelines for Cardiovascular Health and Risk Reduction in Children and Adolescents. Pediatrics 2011;128:S213 2. NCEP Expert Panel. Circulation 2004;110:227 Current Interpretive Data was last revised on 2017. Testing performed by: [address] [address] HDL 40 >=40 mg/dL SUNDAY Comment: Interpretive Data Ages < or = 19 years ??Acceptable: ? >45 mg/dL ??Borderline low: ?? 40-45 mg/dL ??Low: ? <40 mg/dL Ages > or = 20 years ??Desirable: ?>or= 60 mg/dL ??Low: ? <40 mg/dL Literature References: 1. Expert Panel on Integrated Guidelines for Cardiovascular Health and Risk Reduction in Children and Adolescents. Pediatrics 2011;128:S213 2. NCEP Expert Panel. Circulation 2004;110:227 Current Interpretive Data was last revised on 2017. Testing performed by: [address] [address] LDL, calculated 89 <=129 mg/dL [facility] Comment: Interpretive Data Ages < or = 19 years ??Acceptable: ? <110 mg/dL ??Borderline high: ??110-129 mg/dL ??High: ?>or= 130 mg/dL Ages > or = 20 years ??Optimal: ? <100 mg/dL ??Near optimal: ?100-129 mg/dL ??Borderline high: ?? 130-159 mg/dL ??High: ?>160 mg/dL Calculated using the Kyle LDL-C estimating equation. This equation was implemented on 2023. Prior to this date LDL-C was estimated using the Friedewald equation. Literature References: 1. Expert Panel on Integrated Guidelines for Cardiovascular Health and Risk Reduction in Children and Adolescents. Pediatrics 2011;128:S213 2. NCEP Expert Panel. Circulation 2004;110:227 3. Kyle Frank et al. GERRI Cardiol. 2020 July 31;5(5):540-548. doi: 10.1001/jamacardio.2020.0013 Current Interpretive Data was last revised on 2023. Testing performed by: [address] [address] Non-HDL Cholesterol 132 mg/dL [facility] Comment: Interpretive Data Ages < or = 19 years ??Acceptable: ?<120 mg/dL ??Borderline high: ??120-144 mg/dL ??High: ?>145 mg/dL Ages > or = 20 years ??When triglycerides are >200 mg/dL, Non-HDL cholesterol is a secondary target of ? therapy with treatment goals that are 30 mg/dL greater than the LDL cholesterol target. ? Literature References: 1. Expert Panel on Integrated Guidelines for Cardiovascular Health and Risk Reduction in Children and Adolescents. Pediatrics 2011;128:S213 2. NCEP Expert Panel. Circulation 2004;110:227 Current Interpretive Data was last revised on 2017. Testing performed by: [address] [address] Chol/HDL ratio 4 SUNDAY Comment:Testing performed by : [facility], [address] [place] [address]., [address] Blood 11/23/2023 2:38 PM CDT 11/23/2023 4:04 PM CDT Result [facility] Ginette Peoples MD LAB BLOOD ORDERABLE S Final Result SUNDAY [address] [facility] [place] [address] * MAMMOGRAPHY (01/19/2023) Pathologist [facility] Mammography Normal Result [facility] Provider HEALTH MAINTENANCE Final Result * Colonoscopy (02/03/2022) Anatomical Region Laterality Modality Other Result [facility] Provider ENDOSCOPY PROCEDURES Kelsea l Result * PAP SMEAR (01/19/2022) Result [facility] Provider HEALTH MAINTENANCE Final Result * DIABETES FOOT EXAM (09/30/2018) [facility] Diabetic Foot Exam Unknown Result [facility] Provider HEALTH MAINTENANCE Final Result * DIABETES EYE EXAM (07/31/2018) [facility] Diabetic Eye Exam Unknown Result [facility] Provider HEALTH MAINTENANCE Final Result * Hepatitis C antibody (07/26/2018 3:45 PM CDT) [facility] Hep C Ab NONREACT NONREACTIVE [facility][NOTE 2] Comment: Siemens ApoforeaurX using ISABELA (chemiluminescent immunoassay) technology. NONREACTIVE: Antibodies to Hepatitis C not detected. This does not exclude early acute Hepatitis C infection, possibility of exposure to Hepatitis C, antibodies below detection limit, or to lack of antibody reactivity to the antigen used in this assay. EQUIVOCAL: Antibodies to Hepatitis C may or may not be present. ??Sample to be confirmed by real-time PCR method. REACTIVE: Antibodies to Hepatitis C detected.Sample to be confirmed by real-time PCR method. 07/26/2018 3:45 PM CDT 07/26/2018 4:12 PM CDT Narrative Resulting Agency Comment CLI Kamille Olivier MD LAB MICROBIOLOGY - GENERA L ORDERABLES Final Result [place] [address] [place], [place] [address] [phone] * Dexa Axial Skeleton Bone Density 1 or 2 Site (12/21/2014 3:30 PM CDT) Anatomical Region Laterality Modality Body N/A Radiographic Yuki ging 12/21/2014 3:30 PM CDT Impressions 12/21/2014 4:38 PM CDT Bone mineral density within normal limits. Bone mineral density: ??Normal (T-score above or = -1.0) ??Low bone mass ??(T-score between -1.0 and -2.5) replaces the previously used term osteopenia ??Osteoporosis (T-score = or below -2.5) Medical evaluation for secondary causes of low bone mineral density may be appropriate. FRAX is a World Health Organization validated fracture risk assessment tool that calculates a person's 10 year probability of a major osteoporosis related fracture and hip fracture. ??According to the National Osteoporosis Foundation guidelines, postmenopausal women and men age 50 or older with low bone mass and a 10 year probability of a major osteoporosis related fracture = or greater than 20% or a 10 year probability of a hip fracture = or greater than 3% should be considered for treatment. For further information, including treatment recommendations, please refer to the 2013 ISCD Official Positions (http://www.iscd.org) and the NOF's Clinician's Guide to Prevention and Treatment of Osteoporosis (http://www.nof.org/professionals/clinical-guidelines) ?? THIS IS AN ELECTRONICALLY VERIFIED REPORT 12/21/2014 4:35 PM: ??Cesar Dean M.D. Cesar Dean M.D. MD: 04:35 PM 04:35 PM BM [EOD] Narrative 12/21/2014 4:38 PM CDT HISTORY: ??59 year old postmenopausal female with given history of postmenopausal status. Current Height: ??63.5 inches Maximum Height: ??64 inches Weight: ??180 pounds RISK FACTORS: Fracture as an adult, current glucocorticoid (steroid) use ?? COMPARISON(S): ??None available BIOMEDICAL SCIENTIST/MODEL: Vidient (S/N [id number]) FINDINGS: AP lumbar spine ??L1-L4 Total BMD is 1.365 g/hz0G-bragq is 2.9 Left Hip Total BMD is 1.189 g/bp3K-tuvkk is 2.0 Neck BMD is 0.895 g/ek0G-ieunp is 0.4 Procedure Note Provider, MD Srinivasa - 08/17/2020 HISTORY: 59 year old postmenopausal female with given historyof postmenopausal status. Current Height: 63.5 inches Maximum Height: 64 inches Weight: 180 pounds RISK FACTORS: Fracture as an adult, current glucocorticoid (steroid) use COMPARISON(S): None available BIOMEDICAL SCIENTIST/MODEL: Vidient (S/N [id number]) FINDINGS: AP lumbar spine L1-L4 Total BMD is 1.365 g/fl8X-aqfdz is 2.9 Left Hip Total BMD is 1.189 g/lr3N-hwyfr is 2.0 Neck BMD is 0.895 g/wr5U-prfru is 0.4 IMPRESSION: Bone mineral density within normal limits. Bone mineral density: Normal (T-score above or = -1.0) Low bone mass (T-score between -1.0 and -2.5) replaces the previously used term osteopenia Osteoporosis (T-score = or below -2.5) Medical evaluation for secondary causes of low bone mineral density may be appropriate. FRAX is a World Health Organization validated fracture risk assessmenttool that calculates a person's 10 year probability of a major osteoporosisrelated fracture and hip fracture. According to the National OsteoporosisFoundation guidelines, postmenopausal women and men age 50 or older with low bonemass and a 10 year probability of a major osteoporosis related fracture = or greater than 20% or a 10 year probability of a hip fracture = or greaterthan 3% should be considered for treatment. For further information, including treatment recommendations, please referto the 2013 ISCD Official Positions (http://www.iscd.org) and the NOF's Clinician's Guide to Prevention and Treatment of Osteoporosis (http://www.nof.org/professionals/clinical-guidelines) THIS IS AN ELECTRONICALLY VERIFIED REPORT 12/21/2014 4:35 PM: Cesar Dean M.D. Cesar Dean M.D. MD: 04:35 PM 04:35 PM [facility] [EOD] Sirena Young MD IMG DXA PROCEDURES Final Result from Last 3 Months or Most Recently Relevant to Health Maintenance Insurance [facility] [employer]EF[facility]AN [facility] [employer] [facility]AN Advance Directives For more information, please contact: [phone] * Full Code (Latest Code Status on File) Date Activated Date Inactivated Comments 04/18/2022 11:56 PM 04/22/2022 5:49 PM Care Teams Cash Teller Relationship Specialty Start Date End Date Ginette Peoples MD [facility] [address] [place] [address] PCP - General Family Medicine 11/27/19 Phyllis Fu MD Consulting Physician Nephrology 08/30/18 Rene Serrano DO [address] [place] [address] Consulting Physician Orthopedic Surgery 08/30/18 Isaak Horton MD [address] [place] [address] Referring Physician Cardiovascular Disease 05/01/19 Sirena Young MD [address] [place] [address] Referring Physician Gynecology 05/01/19 Ashia Olivier MD [address] [place] [address] Referring Physician Family Practice 05/01/19 Kamille Olivier MD [address] [place] [address] Referring Physician Gastroenterology 05/01/19 Sindy Bryant NP [address] [id number] Nurse Practitioner Urology 05/01/19
--- OUTSIDE RECORDS SUMMARY | 2024-05-06 14:01 | XMS_ITS | Referral Summary ---
Author Organization [facility] Address [address] [place] [address] Care Team Providers Care Home Economics Teacher Name Role Phone Phyllis Fu MD Unavailable [phone] Rene Serrano DO Unavailable [phone] Isaak Horton MD Unavailable [phone] Sirena Young MD Unavailable [phone] Ashia Olivier MD Unavailable Kamille Olivier MD Unavailable [phone] Sindy Bryant NP Unavailable [phone] Ginette Peoples MD Primary Care Provi kristi Encounters Date Type Department Care Team Description 04/22/2024 Telephone [facility] Medical [facility] Family Medicine [address] [phone] Ginette Peoples MD Medical Question/Miscellane ous 04/17/2024 Telephone [facility] [address] [phone] Ginette Peoples MD Test Results 04/15/2024 2:09 PM [employer]EVELER - 04/15/2024 11:59 PM [employer] Hospital Encounter [facility] Diagnostic Imaging [address] [place] [address] Chronic neck pain Discharge Disposition: Discharge to home or self care 04/15/2024 1:30 PM [employer] Office Visit [address] [address] Heather Zhao PA Acute non-recurrent frontal sinusitis (Primary Dx); Chronic neck pain; BMI 26.0-26.9,adult 04/14/2024 Nurse Triage [address] [phone] Ginette Peoples MD 03/14/[address] [address] Ginette Peoples MD Symptom Based Call 03/10/2024 1:30 PM [employer] Office Visit [address] [phone] Poncho Alejandra MD Neck pain on left side (Primary Dx); Chronic left shoulder pain; Chronic left-sided thoracic back pain; Periumbilical abdominal cramping; Diarrhea, unspecified type; Overweight 03/10/2024 Nurse Triage [address] [phone] Selene Elaine RN 03/10/[address] [address] Ginette Peoples MD Symptom Based Call 02/05/2024 7:00 PM [employer] Office Visit [facility] at [address] [phone] Maggy Williamson PA Fatigue, unspecified type (Primary Dx); Diarrhea, unspecified type; Rib pain on left side; Acute left-sided thoracic back pain; Neck pain on left side 02/05/[address] [address] Ginette Peoples MD Symptom Based Call 02/05/2024 Nurse Triage [address] [phone] Ginette Peoples MD 02/04/[address] [address] Ginette Peoples MD Medical Question/Miscellane ous from Last 3 Months Allergies Active Allergy Reactions Criticality Noted Date [...] FOR 30 DAYS 3 each 1 08/18/19 Active alcohol swabs pads, medicatedIndica tions:Type 2 diabetes mellitus with microalbuminuri a, without long-term current use of insulin (HCC) Apply 1 each topically daily 200 each 3 12/16/19 23 Active blood-glucose meter kitIndications: Type 2 diabetes mellitus with microalbuminuri a, without long-term current use of insulin (HCC) Use to check blood sugars daily 1 kit 12/16/19 Active blood glucose diagnostic (glucose blood) stripIndication s:Type 2 diabetes mellitus with microalbuminuri a, without long-term current use of insulin (HCC) Use to check blood sugar once daily 100 each 3 12/16/19 Active lidocaine (LIDODERM) 5 %Indications:Le ft leg pain Place 1 patch on the skin daily Remove & discard patch within 12 hours or as directed by . 90 patch 3 12/16/19 23 Active lancets miscIndications :Type 2 diabetes mellitus with microalbuminuri a, without long-term current use of insulin (HCC) Use to check blood sugars once daily [...] complication, without long-term current use of insulin ([facility]) ([facility]) TAKE 1 TABLET BY MOUTH EVERY DAY [...] a facemask before emergency medical services arrive CDC Information: While waiting for your COVID-19 test [...] know about COVID-19 and the Omicron variant, [facility] is shortening the recommended time for isolation [...] Quarantine for those exposed to COVID-19 Additionally, [facility] is updating the recommended quarantine period for [...] 05/22/2022 Assessment & Plan (05/22/2022 2:51 PM [employer]EVELER): Chronic, entering her allergy season Continue current regimen Update me with any changes Allergic rhinitis due to pollen 05/22/2022 Assessment & Plan (05/22/2022 2:51 PM [employer]EVELER): Chronic, entering her allergy season Continue current regimen Update me with any changes Hypertrophy of nasal turbinates 05/22/2022 Bilateral carotid artery stenosis 11/03/2021 Assessment & Plan (05/22/2022 2:55 PM [employer]EVELER): Chronic, stable Continue crestor Continue to follow with cardiology at [place]- she is scheduled for one year Assessment [...] 08/12/2020 Assessment & Plan (05/22/2022 2:57 PM [employer]EVELER): Chronic, improved except for work stress Continue [...] encouraged Assessment & Plan (05/22/2022 2:50 PM [employer]EVELER): Encouraged a healthy diet, and regular physical [...] 11/14/2019 Assessment & Plan (05/22/2022 2:56 PM [employer]EVELER): Chronic Continue to follow with urology Update [...] 03/11/2019 Assessment & Plan (05/22/2022 2:53 PM [employer]EVELER): Chronic, slightly increased as she is having [...] 02/07/2019 Assessment & Plan (02/07/2019 10:07 AM [employer]EVELER): Take ibuprofen 600mg (has a prescription at [...] 12/23/2018 Assessment & Plan (05/22/2022 2:53 PM [employer]EVELER): Chronic, persistent Continue flonase Encouraged follow up [...] concerns Assessment & Plan (05/22/2022 3:00 PM [employer]EVELER): Chronic, stable Continue current regimen Continue healthy [...] week. Assessment & Plan (05/30/2019 10:18 AM [employer]AR[employer] LEVELER): Blood testing indicates acceptable control of your [...] daily Assessment & Plan (05/22/2022 2:58 PM [employer] LEVELER): Chronic, stable Continue crestor Follow up labs [...] concerns Assessment & Plan (05/30/2019 10:17 AM PR[employer]AR[employer] LEVELER): Patient follows with Cardiology. Condition controlled, continue [...] week. Assessment & Plan (05/22/2022 2:59 PM [employer]EVELER): Chronic, stable Continue current inhalers Set up follow up with pulmonary Update me with any changes Assessment & Plan (12/29/2021 6:29 PM CDT): Chronic, stable Continue albuterol, QVAR Continue to follow with her window repairer Update me with changes or concerns FMLA completed with this as part of it given this would put her at risk for COVID Assessment & Plan (11/17/2020 2:44 PM CDT): Stable Continue current regimen Continue supportive care Assessment & Plan (08/12/2020 7:57 PM CDT): Continue inhalers Continue to monitor symptoms Call if they change or worsen Coronary artery disease invo lving [place] coronary artery of [place] heart without angina pectoris 11/13/2016 Overview (07/17/2018): Status post drug-eluting stent with a Synergy 3.0 x 16 mm drug-eluting stent in the mid LAD with 50-70% stenosis in the mid to distal left circumflex artery with a negative IFR and just 20% stenosis in the right coronary artery on catheterization done 10/31 Assessment & Plan (05/22/2022 2:57 PM [employer]AR[employer] LEVELER): Chronic, stable Continue to follow with cardiology [...] her hypotension Continue to follow with her driller helper Continue Zebeta in Imdur as prescribed Update me with any changes or concerns Assessment & Plan (09/12/2021 5:03 PM CDT): With an episode of chest discomfort. I advised her that if she has chest pain like she did, she needs to go to the emergency room. If she has no one that can pile driver operator barge mounted, that does mean calling 911 Continue to [...] concerns Assessment & Plan (05/30/2019 10:17 AM [employer] LEVELER): Patient follows with Cardiology. Condition controlled, continue current treatment. Assessment & Plan (10/11/2018 2:18 PM CDT): Follows with cardiology - has upcoming appointment with Dr. Graham. On Crestor 40 On Jardiance Aortic atherosclerosis 08/08/2016 Overview (09/11/2018): Noted on transesophageal echocardiogram, goal LDL should be less than 70 mg/dL. Assessment & Plan (05/22/2022 2:55 PM [employer]AR[employer] LEVELER): Chronic, stable Continue crestor Assessment & Plan (11/17/2020 2:37 PM CDT): Continue to follow with cardiology Assessment & Plan (01/02/2020 9:41 AM CDT): Continue current regimen for now Will place referral for Cardiology when she is ready Continue healthy changes Call for questions or concerns Assessment & Plan (05/30/2019 10:17 AM PR[employer]AR[employer] SOL[employer] LEVELER): Patient follows with Cardiology. Condition controlled, continue current treatment. Chronic left-sided low back pain with left-sided sciatica 07/21/2016 Assessment & Plan (05/22/2022 2:56 PM [employer]AR[employer] LEVELER): Chronic, slightly improved today Continue supportive care Update me if s/sx worsen or do not improve Assessment & Plan (09/12/2021 4:46 PM CDT): Will order MRI- she has tried steroids, muscle relaxer without, gabapentin improvement will write letter for telework [facility]-reviewed risks/benefits/side effects Will [...] Controlled Assessment & Plan (05/22/2022 2:58 PM PR[employer]AR[employer] SOL[employer] LEVELER): Chronic, stable Continue current regimen- blood pressure at goal Continue current regimen Assessment & Plan (12/29/2021 6:28 PM CDT): Blood pressure improved currently Continue hydrochlorothiazide and Zebeta Continue to follow with her driller helper Update me if her symptoms change or [...] concerns Assessment & Plan (05/30/2019 10:17 AM PR[employer]AR[employer] SOL[employer] LEVELER): Patient follows with Cardiology. Condition controlled, continue current treatment. Assessment & Plan (10/11/2018 2:16 PM CDT): Well controlled. Follows with Dr. Graham - has upcoming appointment Hypothyroidism 10/13/2015 Overview (01/02/2020): 11/2019 - labs normal Assessment & Plan (05/22/2022 2:59 PM PR[employer]AR[employer] SOL[employer] LEVELER): Chronic, stable Follow up labs ordered Continue current dose of synthroid Assessment & Plan (01/04/2021 5:38 PM CDT): Follow-up labs were within normal limits Continue levothyroxine at current dose Assessment & Plan (11/17/2020 2:42 PM CDT): 05/2020- TSH is normal Continue current regimen Assessment & Plan (01/02/2020 9:47 AM CDT): Labs normal 11/2019 Continue current regimen Assessment & Plan (05/30/2019 10:17 AM PR[employer]AR[employer] LEVELER): Cont current dose is euthyroid Report if [...] 05/25/2023 Assessment & Plan (04/24/2023 2:56 PM PR[employer]AR[employer] SOLDER LEVELER): Rapid covid, flu, strep negative PCR and throat culture pending Supportive care, rest, clear sugar-free fluids (water), steam inhalation/humidifier Warm salt water gargles OTC medications (Flonase, Nasal saline, Zyrtec/Claritin, Tylenol, Mucinex/Delsym per package instructions) Disorder of vocal cord 05/22/202205/25 Diverticulitis 04/18/2022 05/25/2023 Assessment & Plan (05/22/2022 2:57 PM PR[employer]ARDS SOLDER LEVELER): Recurrent episodes Continue to follow with GI Edna cooper if her symptoms change/worsen Call for questions Assessment & Plan (04/24/2022 1:44 PM PR[employer]AR[employer] SOLDER LEVELER): Recurrent Complete course of augmentin Set up follow up with Dr Soy cooper with any questions or concerns Call for questions Body aches 04/22/2021 05/22/2022 Assessment & Plan (04/22/2021 2:01 PM PR[employer]ED [employer] BOARDS SOLDER LEVELER): Likely minor reaction from Booster. Recommend OTC [...] Need for prophylactic vaccin ation with combined raqwckbjgs-mwozwoq-mxmshrimz (DTP) vaccine 04/30/2013 05/30/2019 Immunizations Name Administration Dates Next Due Influenza, [...] PPV23 02/01/2018, Tdap 11/10/2021,04/30/2013 ZOSTER Recombinant 11/14/2019,05/30/2019 Social History Tobacco Use Types Packs/Day Years Used Date Smoking Tobacco: Never Smokeless Tobacco: Never Tobacco Cessation:Counseling Given: Not Answered Alcohol Use Standard Drinks/Week Comments Not Currently 0 (1 standard drink = 0.6 oz pur e alcohol) [facility] Utilities Answer Date Recorded In the past 12 months has e [employer], gas, oil, or water company threatened to [...] Never 11/21/2023 How often do you attend confucianism or orthodox serv ices? Never 11/21/2023 Do you belong to any clubs o r organizations such as confucianism groups, unions, fraternal or athletic groups, or [...] any time in the past 12 m [facility], were you homeless or living in a fpc (including now)? 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 Not on file Not on file Last Filed Vital Signs Vital Sign Reading Time Taken Comments Blood Pressure 130/70 04/15/2024 1:25 PM [employer]EVELER Pulse 97 04/15/2024 1:25 PM [employer]EVELER Temperature 36.4 ??C (97.5 ??F) 04/15/2024 1:25 PM CS T Respiratory Rate 16 04/15/2024 1:25 PM [employer]EVELER Oxygen Saturation 98% 04/15/2024 1:25 PM [employer]EVELER Inhaled Oxygen Concentration - - Weight 66.6 kg (146 lb 12.8 oz) 04/15/2024 1:25 PM [employer]EVELER Height 160 cm (5' 3 ) 04/15/2024 1:25 PM [employer]EVELER Body Mass Index 26 04/15/2024 1:25 PM [employer] LEVELER Plan of Treatment Not on file Procedures Procedure Name Priority Date/Time Associated Diagnosis Comments XR SPINE CERVICAL 2 OR 3 VIEWS Schedule Routine, Read Routine (OP Routine) 04/15/2024 2:22 PM [employer] LEVELER Chronic neck pain POC INFLUENZA A/B, COVID-19 ANTIGEN Routine 02/05/2024 7:44 PM [employer]EVELER Fatigue, unspecified type POCT RAPID STREP Routine 02/05/2024 7:44 PM [employer]EVELER Fatigue, unspecified type EGFR Routine 01/10/2024 3:36 [...] Routine 02/03/2022 HM PAP SMEAR Routine 01/19/2022 DIABETES FOOT EXAM Routine 09/30/2018 DIABETES EYE EXAM Routine 07/31/2018 HEPATITIS C ANTIBODY Routine 07/26/2018 3:45 PM CDT DEXA AXIAL SKELETON BONE DENSITY 1 OR MORE SITES Routine 12/21/2014 3:30 PM CDT from Last 3 Months or Most Recently Relevant to Health Maintenance Results * XR Spine Cervical 2 or 3 Views (04/15/2024 2:22 PM PR[employer]AR[employer] LEVELER) Anatomical Region Laterality Modality Spine N/A Computed Radiogr aphy 04/16/2024 12:5 8 PM [employer] LEVELER Narrative 04/16/2024 1:03 PM [employer] LEVELER EXAM DESCRIPTION: XR SPINE CERVICAL 2 OR [...] Electronically signed by ??Lyn Allen M.D. TW: TW D: ??04/16/2024 1:03 PM T: ??04/16/2024 1:03 PM Report ID: [id number] Reading Location: ??[id number] Procedure Note Lyn Allen MD - 04/16/2024 [...] Electronically signed by Lyn Allen M.D. TW: TW Report ID: [id number] Reading Location: [place] [address] Heather ZAPIEN IMG XR PROCEDURES Final R esult * POC Influenza A/B, COVID-19 antigen (02/05/2024 7:44 PM PR[employer]AR[employer] LEVELER) [facility] Influenza A Ag, POC Negative Negative [facility] Influenza B Ag, POC Negative Negative [facility] COVID-19 Ag POC Presumptive Negative Presumptive Negative, Invalid [facility] [place] Nasal 02/05/2024 7:44 PM PR[employer]ED [employer]AR[employer]DER LEVELER Maggy ZAPIEN POINT OF CARE TEST ORDERABLE S Final Result Performing Organization Address City/[facility]/ZIP Co de Phone Number [facility] [address] [place] [address] * POCT rapid strep A (02/05/2024 7:44 PM PRINTED [employer]AR[employer] SOLDER LEVELER) [facility] Rapid Strep A, POC Negative Negative [facility] Swab 02/05/2024 7:44 PM PR[employer]ED [employer]AR[employer] SOLDER LEVELER Maggy ZAPIEN POINT OF CARE TEST ORDERABLE S Final Result Performing Organization Address City/[facility]/ZIP Co de Phone Number [facility] [address] [place] [address] * eGFR (01/10/2024 3:36 PM CDT) [facility] eGFR >90 >=60 mL/min/1. 73 m2 Comment: [...] of Race in Diagnosing Kidney Disease, JASN 2020). The CKD-EPI equation should not be used for patients with unstable renal function and has not been validated in children and those over 70. Current interpretive data was last reviewed 2021. Testing performed by: [address] [address] Blood 01/10/2024 3:36 PM CDT 01/10/2024 6:13 PM CDT us Heather ZAPIEN LAB BLOOD ORDERABLES Kelsea l Result Performing Organization Address City/State/[facility] Co de Phone Number SUNDAY [address] [facility] Department [place] [address] * (ABNORMAL) Albumin Creatinine Ratio, Urine (11/23/2023 2:38 PM CDT) Albumin Ur 70.3 mg/L Comment: Interpretive Data No reference range established. Current interpretive data was last revised 2018. Testing performed by: [address] [address] Creatinine Ur 61.6 mg/dL SUNDYA SETH Comment: Interpretive Data No reference range established. Current interpretive data was last revised 2018. Testing performed by: [address] [address] Albumin Creatinine Ratio, Ur 114(H) 1 - 29 mg/g SUNDAY Comment:Testing performed by : [address] [address] Urine 11/23/2023 2:38 PM CDT 11/23/2023 4:03 PM CDT Ginette Peoples MD LAB URINE ORDERABLE S Final Result Performing Organization Address [facility] de Phone Number [facility] [address] [facility] [place] [address] * (ABNORMAL) Hemoglobin A1c (11/23/2023 2:38 PM CDT) Hgb A1C 7.9(H) 4.0 - 5.6 % Comment:Testing performed by : [address] [address] Estimated Average Glucose 180 mg/dL SUNDAY Comment: The ADA recommends reporting an estimated Average Glucose (eAG) with all Hemoglobin A1c results using the equation derived from a study of 507 normal and diabetic adults. ??Minority populations were underrepresented and children were not included. ?? (Diabetes Care 31:1430-6625, 2008). ??The eAG is not equivalent to a fasting glucose. Testing performed by: [address] [address] Blood 11/23/2023 2:38 PM CDT 11/23/2023 4:04 PM CDT us Ginette Peoples MD LAB BLOOD ORDERABLE S Final Result Performing Organization Address City/[facility] Co de Phone Number [facility] [address] [facility] [place] [address] * (ABNORMAL) Lipid panel (11/23/2023 2:38 PM CDT) Cholesterol 172 30 - 199 mg/dL Comment: [...] last revised on 2017. Testing performed by: [address] [address] Triglycerides 260(H) <=149 mg/dL SUNDAY SETH Comment: Interpretive Data Ages < or = [...] last revised on 2017. Testing performed by: [address] [address] HDL 40 >=40 mg/dL SUNDAY SETH Comment: Interpretive Data Ages < or = [...] last revised on 2017. Testing performed by: [address] [address] LDL, calculated 89 <=129 mg/dL SUNDAY Comment: Interpretive Data Ages < [...] last revised on 2023. Testing performed by: [address] [address] Non-HDL Cholesterol 132 mg/dL SUNDAY Comment: Interpretive Data Ages < [...] last revised on 2017. Testing performed by: [address] [address] Chol/HDL ratio 4 SUNDAY Comment:Testing performed by : [facility], [address] [place] [address]., [address] Blood 11/23/2023 2:38 PM CDT 11/23/2023 4:04 PM CDT Result [facility] Ginette Peoples MD LAB BLOOD ORDERABLE S Final Result Performing Organization Address City/State/[facility] Co de Phone Number [facility] [address] [facility] Department [place] [address] * MAMMOGRAPHY (01/19/2023) Mammography Normal Historical Provider HEALTH MAINTENANCE Final Result * Colonoscopy (02/03/2022) Anatomical Region Laterality Modality Other [facility] Michael BLOOM ENDOSCOPY PROCEDURES Kelsea l Result * PAP SMEAR (01/19/2022) Historical Provider HEALTH MAINTENANCE Final Result * DIABETES FOOT EXAM (09/30/2018) Diabetic Foot Exam Unknown Historical Provider HEALTH MAINTENANCE Final Result * DIABETES EYE EXAM (07/31/2018) Diabetic Eye Exam Unknown Historical Provider HEALTH MAINTENANCE Final Result * Hepatitis C antibody (07/26/2018 3:45 PM CDT) Hep C Ab NONREACT NONREACTIVE [facility] Comment: Siemens CentaurXP using ISABELA (chemiluminescent immunoassay) technology. NONREACTIVE: Antibodies [...] MICROBIOLOGY - GENERA [place] [address], [facility] [phone] * Dexa Axial Skeleton Bone Density 1 [...] Dean M.D. MD: 04:35 PM 04:35 PM [facility] [EOD] Narrative 12/21/2014 4:38 PM CDT HISTORY: ??59 year old postmenopausal female with given history of postmenopausal status. Current Height: ??63.5 inches Maximum Height: ??64 inches Weight: ??180 pounds RISK FACTORS: Fracture as an adult, current glucocorticoid (steroid) use ?? COMPARISON(S): ??None available SUSPENDER CUTTER/MODEL: [employer] SL (S/N [id number]) FINDINGS: AP lumbar spine ??L1-L4 Total BMD is 1.365 g/va0E-bbrfo is 2.9 Left Hip Total BMD is 1.189 g/ml8P-dfvlv is 2.0 Neck BMD is 0.895 g/rv7Z-lfwqy is 0.4 Procedure Note Provider, MD Srinivasa - 08/17/2020 HISTORY: 59 year old postmenopausal female with given historyof postmenopausal status. Current Height: 63.5 inches Maximum Height: 64 inches Weight: 180 pounds RISK FACTORS: Fracture as an adult, current glucocorticoid (steroid) use COMPARISON(S): None available SUSPENDER CUTTER/MODEL: [employer] SL (S/N [id number]) FINDINGS: AP lumbar spine L1-L4 Total BMD is 1.365 g/rf5H-dwwdd is 2.9 Left Hip Total BMD is 1.189 g/yx7C-qklbm is 2.0 Neck BMD is 0.895 g/pp1V-jabhs is 0.4 IMPRESSION: Bone mineral density within [...] Dean M.D. MD: 04:35 PM 04:35 PM [facility] [EOD] Sirena Young MD IM DXA PROCEDURES Final Result from Last 3 Months or Most Recently Relevant to Health Maintenance Insurance [address] [place] [id number] [employer] [facility] HEALTH BENEFIT PLAN [facility] HEALTH BENEFIT PLAN Advance Directives For more information, please contact: [phone] * Full Code (Latest Code Status on File) Date Activated Date Inactivated Comments 04/18/2022 11:56 PM 04/22/2022 5:49 PM Care Teams Home Economics Teacher Relationship Specialty Start Date End Date Ginette Peoples MD [address] [place] [address] PCP - General Family Medicine 11/27/19 Phyllis Fu MD Consulting Physician Nephrology 08/30/18 Rene Serrano DO [address] [facility] [address] [place] [address] Consulting Physician Orthopedic Surgery 08/30/18 Isaak Horton MD [address] [facility] [address] [place] [address] Referring Physician Cardiovascular Disease 05/01/19 Sirena Young MD [address] [place] [address] Referring Physician Gynecology 05/01/19 Ashia Olivier MD [address] [place] [address] Referring Physician Family Practice 05/01/19 Kamille Olivier MD [address] [place] [address] Referring Physician Gastroenterology 05/01/19 Sindy Bryant, [place] [address] [place] [address] Nurse Practitioner Urology 05/01/19
--- OUTSIDE RECORDS SUMMARY | 2024-05-06 14:01 | XMS_ITS | Encounter Summary ---
Author Organization [facility] Facility Care Team Providers Care Air Conditioning Installer Supervisor Name Role Phone Rabia Rosenthal MD Primary Care Provider + [phone] Bunny Erazo Primary Care Provider + [phone] Kirit Graham MD Unavailable +[phone] Phyllis Fu MD Unavailable +[phone] Raymundo Yoo MD Unavailable +[phone] Rnee Serrano DO Unavailable +[phone] Isaak Horton MD Unavailable +[phone] Sirena Young MD Unavailable +[phone] Ashia Olivier MD Unavailable Kamille Olivier MD Unavailable +[phone] Sindy Bryant NP Unavailable +[phone] Juan Coleman DO Primary Care Provider +[phone] Ginette Peoples MD Primary Care Provi kristi Xiao BlairW Unavailable +[phone] Encounter Details Date Type Department Care Team (Latest Contact Info) Description 08/07/2016 Orders Only [facility] CLINCONV ProviderSrinivasa MD [address] [place] [address] Social History Tobacco Use Types Packs/Day Years Used Date Smoking Tobacco: Never Assessed Comments Unknown Sex and Gender Information Value Date Recorded Sex Assigned at Not on file Legal Sex Female 6:00 PM OPTICAL MECHANIC APPRENTICE Gender Identity Not on file Sexual Orientation Not on file documented as of this encounter Plan of Treatment Not on file documented as of this encounter Procedures Procedure Name Priority Date/Time Associated Diagnosis Comments CARDIOLOGY REPORT 08/07/2016 12: 00 AM CDT documented in this encounter Results * CARDIOLOGY REPORT (08/07/2016 12:00 AM CDT) Anatomical Region Laterality Modality Other Narrative 08/07/2016 12:00 AM CDT Ordered by an unspecified [...] COVID: Suspected 04/19/2021 04/20/2021 04/20/2021 7:44 PM OPTICAL MECHANIC APPRENTICE COVID: Suspected 06/15/2021 06/15/2021 06/15/2021 5:09 PM CDT COVID: Suspected 08/10/2021 08/10/2021 08/10/2021 9:27 AM CDT COVID: Suspected 10/09/2021 10/09/2021 10/09/2021 9:53 PM CDT COVID: Suspected 06/23/2022 06/23/2022 06/23/2022 1:16 PM CDT COVID: Suspected 04/24/2023 04/24/2023 04/24/2023 2:33 PM OPTICAL MECHANIC APPRENTICE COVID: Suspected 04/24/2023 04/24/2023 04/24/2023 7:57 PM OPTICAL MECHANIC APPRENTICE COVID: Suspected 06/28/2023 06/28/2023 06/28/2023 2:26 PM CDT COVID: Suspected 07/01/2023 07/01/2023 07/01/2023 8:57 AM CDT COVID19 07/01/2023 07/01/2023 07/11/2023 3:05 AM CDT COVID: Recovered Comment:Added based on recent COVID infection. 07/11/2023 07/11/2023 10/09/2023 3:07 AM C DT COVID: Suspected 12/27/2023 12/27/2023 12/27/2023 3:07 PM CDT COVID: Suspected 02/05/2024 02/05/2024 02/05/2024 7:45 PM OPTICAL MECHANIC APPRENTICE documented as of this encounter Care Teams Air Conditioning Installer Supervisor Relationship Specialty Start Date End Date Rabia Rosenthal MD [address] [address] PCP - General 05/29/18 07/25/18 Bunny Erazo PA [address] [place] [address] [id number] PCP - General 07/26/18 11/13/19 Juan Coleman DO [address] [place] [address] [phone] PCP - General Family Medicine 11/14/19 11/26/19 Ginette Peoples MD [address] [place], [place] [phone] PCP - General Family Medicine 11/27/19 Kirit Graham MD [address] [place] [address] [id number] Consulting Physician Interventional Cardiology 08/30/18 04/30/19 Phyllis Fu MD [address] [address] Consulting Physician Nephrology 08/30/18 [place] [address] [facility] [address] [place] [address] Referring Physician Allergy and Immunology 08/30/18 Rene Serrano DO [address] [facility] [address] GAVIN [address] [place] [address] Consulting Physician Orthopedic Surgery 08/30/18 Isaak Horton MD [address] [facility] [address] GAVIN [address] [place] [address] Referring Physician Cardiovascular Disease 05/01/19 Sirena Young MD 2022 [address] [facility] [address] [place] [address] Referring Physician Gynecology 05/01/19 Ashia Olivier MD [address] [place] [address] Referring Physician Family Practice 05/01/19 Kamille Olivier MD [address] [place] [address] Referring Physician Gastroenterology 05/01/19 Sindy Bryant NP [address] [place] [address] Nurse Practitioner Urology 05/01/19 Xiao Blair, [address] [place] [address] Public Relations Account Supervisor 11/21/23 11/27/23 documented as of this encounter
--- OUTSIDE RECORDS SUMMARY | 2024-05-06 14:01 | XMS_ITS | Encounter Summary ---
Author Organization [facility] Facility Care Team Providers Care Urban Design Consultant Name Role Phone Rabia Rosenthal MD Primary Care Provider + [phone] Bunny Erazo Primary Care Provider + [phone] Kirit Graham MD Unavailable +[phone] Phyllis Fu MD Unavailable +[phone] Raymundo Yoo MD Unavailable +[phone] Rene Serrano DO Unavailable +[phone] Isaak Horton MD Unavailable +[phone] Sirena Young MD Unavailable +[phone] Ashia Olivier MD Unavailable Kamille Olivier MD Unavailable +[phone] Sindy Bryant NP Unavailable +[phone] Juan Coleman DO Primary Care Provider +[phone] Ginette Peoples MD Primary Care Provi kristi Xiao BlairW Unavailable +[phone] Encounter Details Date Type Department Care Team (Latest Contact Info) Description 05/30/2016 Orders Only [facility]G CLINCONV ProviderSrinivasa MD [address] [place] [address] Social History Tobacco Use Types Packs/Day Years Used Date Smoking Tobacco: Never Assessed Comments Unknown Sex and Gender Information Value Date Recorded Sex Assigned at Not on file Legal Sex Female 6:00 PM DRAFTER CIVIL Gender Identity Not on file Sexual Orientation Not on file documented as of this encounter Plan of Treatment Not on file documented as of this encounter Procedures Procedure Name Priority Date/Time Associated Diagnosis Comments CARDIOLOGY REPORT 06/01/2016 12: 00 AM DRAFTER CIVIL CARDIOLOGY REPORT 05/30/2016 12: 00 AM DRAFTER CIVIL documented in this encounter Results * CARDIOLOGY REPORT (06/01/2016 12:00 AM DRAFTER CIVIL) Anatomical Region Laterality Modality Other Narrative 06/01/2016 12:00 AM DRAFTER CIVIL Ordered by an unspecified provider. us Historical Provider CV CARDIAC SERVICES PROCE DURES Final Result * CARDIOLOGY REPORT (05/30/2016 12:00 AM DRAFTER CIVIL) Anatomical Region Laterality Modality Other Narrative 05/30/2016 12:00 AM DRAFTER CIVIL Ordered by an unspecified provider. us Historical Provider CV CARDIAC SERVICES PROCE DURES Final Result documented in this encounter Visit Diagnoses Not on filedocumented in this encounter Additional Health Concerns Infection Onset Date Last Indicated Resolved Time COVID: Suspected 10/29/2020 10/29/2020 10/30/2020 12:16 AM CDT COVID: Suspected 12/09/2020 12/09/2020 12/09/2020 10:04 PM CDT COVID: Suspected 01/17/2021 01/17/2021 01/17/2021 5:45 PM CDT COVID: Suspected 04/19/2021 04/20/2021 04/20/2021 7:44 PM DRAFTER CIVIL COVID: Suspected 06/15/2021 06/15/2021 06/15/2021 5:09 PM CDT COVID: Suspected 08/10/2021 08/10/2021 08/10/2021 9:27 AM CDT COVID: Suspected 10/09/2021 10/09/2021 10/09/2021 9:53 PM CDT COVID: Suspected 06/23/2022 06/23/2022 06/23/2022 1:16 PM CDT COVID: Suspected 04/24/2023 04/24/2023 04/24/2023 2:33 PM DRAFTER CIVIL COVID: Suspected 04/24/2023 04/24/2023 04/24/2023 7:57 PM DRAFTER CIVIL COVID: Suspected 06/28/2023 06/28/2023 06/28/2023 2:26 PM CDT COVID: Suspected 07/01/2023 07/01/2023 07/01/2023 8:57 AM CDT COVID19 07/01/2023 07/01/2023 07/11/2023 3:05 AM CDT COVID: Recovered Comment:Added based on recent COVID infection. 07/11/2023 07/11/2023 10/09/2023 3:07 AM C DT COVID: Suspected 12/27/2023 12/27/2023 12/27/2023 3:07 PM CDT COVID: Suspected 02/05/2024 02/05/2024 02/05/2024 7:45 PM DRAFTER CIVIL documented as of this encounter Care Teams Urban Design Consultant Relationship Specialty Start Date End Date Rabia Rosenthal MD [address] [address] PCP - General 05/29/18 07/25/18 Bunny Erazo PA [address] [place] [address] [phone] PCP - General 07/26/18 11/13/19 Juan Coleman DO [address] [place] [address] [phone] PCP - General Family Medicine 11/14/19 11/26/19 Ginette Peoples MD [address] [place], [place] [phone] PCP - General Family Medicine 11/27/19 Kirit Graham MD [address] [place] [address] Consulting Physician Interventional Cardiology 08/30/18 04/30/19 Phyllis Fu MD [address] [place] [address] Consulting Physician Nephrology 08/30/18 [place] [address] [address] Referring Physician Allergy and Immunology 08/30/18 Rene Serrano DO [address] [facility] [address] GAVIN [address] [place] [address] Consulting Physician Orthopedic Surgery 08/30/18 Isaak Horton MD [address] [facility] [address] GAVIN [address] [place] [address] Referring Physician Cardiovascular Disease 05/01/19 Sirena Young MD [address] [address] Referring Physician Gynecology 05/01/19 Ashia Olivier MD [address] [place] [address] Referring Physician Family Practice 05/01/19 Kamille Olivier MD [address] [place] [address] Referring Physician Gastroenterology 05/01/19 Sindy Bryant NP [address] [address] Nurse Practitioner Urology 05/01/19 Xiao Blair, [address] [place] [address] Machine Spring Former 11/21/23 11/27/23 documented as of this encounter
--- OUTSIDE RECORDS SUMMARY | 2024-05-06 14:01 | XMS_ITS | Encounter Summary ---
Author Organization [facility] Facility Care Team Providers Care Smearer Name Role Phone Rabia Rosenthal MD Primary Care Provider + [phone] Bunny Erazo Primary Care Provider + [phone] Kirit Graham MD Unavailable +[phone] Phyllis Fu MD Unavailable +[phone] Raymundo Yoo MD Unavailable +[phone] Rene Serrano DO Unavailable +[phone] Isaak Horton MD Unavailable +[phone] Sirena Young MD Unavailable +[phone] Ashia Olivier MD Unavailable Kamille Olivier MD Unavailable +[phone] Sindy Bryant NP Unavailable [phone] Juan Coleman DO Primary Care Provider +[phone] Ginette Peoples MD Primary Care Provi kristi Xiao BlairW Unavailable +[phone] Encounter Details Date Type Department Care Team (Latest Contact Info) Description 08/16/2016 Orders Only [facility]G CLINCONV ProviderSrinivasa MD [address] [place] [address] Social History Tobacco Use Types Packs/Day Years Used Date Smoking Tobacco: Never Assessed Comments Unknown Sex and Gender Information Value Date Recorded Sex Assigned at Not on file Legal Sex Female 6:00 PM GROOVER OPERATOR Gender Identity Not on file Sexual Orientation Not on file documented as of this encounter Plan of Treatment Not on file documented as of this encounter Procedures Procedure Name Priority Date/Time Associated Diagnosis Comments CARDIOLOGY REPORT 08/01/2016 12: 00 AM CDT documented in this encounter Results * CARDIOLOGY REPORT (08/01/2016 12:00 AM CDT) Anatomical Region Laterality Modality Other Narrative 08/01/2016 12:00 AM CDT Ordered by an unspecified [...] COVID: Suspected 04/19/2021 04/20/2021 04/20/2021 7:44 PM GROOVER OPERATOR COVID: Suspected 06/15/2021 06/15/2021 06/15/2021 5:09 PM CDT COVID: Suspected 08/10/2021 08/10/2021 08/10/2021 9:27 AM CDT COVID: Suspected 10/09/2021 10/09/2021 10/09/2021 9:53 PM CDT COVID: Suspected 06/23/2022 06/23/2022 06/23/2022 1:16 PM CDT COVID: Suspected 04/24/2023 04/24/2023 04/24/2023 2:33 PM GROOVER OPERATOR COVID: Suspected 04/24/2023 04/24/2023 04/24/2023 7:57 PM GROOVER OPERATOR COVID: Suspected 06/28/2023 06/28/2023 06/28/2023 2:26 PM CDT COVID: Suspected 07/01/2023 07/01/2023 07/01/2023 8:57 AM CDT COVID19 07/01/2023 07/01/2023 07/11/2023 3:05 AM CDT COVID: Recovered Comment:Added based on recent COVID infection. 07/11/2023 07/11/2023 10/09/2023 3:07 AM C DT COVID: Suspected 12/27/2023 12/27/2023 12/27/2023 3:07 PM CDT COVID: Suspected 02/05/2024 02/05/2024 02/05/2024 7:45 PM GROOVER OPERATOR documented as of this encounter Care Teams Smearer Relationship Specialty Start Date End Date Rabia Rosenthal MD [address] [address] PCP - General 05/29/18 07/25/18 Bunny Erazo PA [address] [place] [address] [phone] PCP - General 07/26/18 11/13/19 Juan Coleman DO [address] [place] [address] [phone] PCP - General Family Medicine 11/14/19 11/26/19 Ginette Peoples MD [address] [place], [place] [phone] PCP - General Family Medicine 11/27/19 Kirit Graham MD [address] [place] [address] 155199 Consulting Physician Interventional Cardiology 08/30/18 04/30/19 Phyllis Fu MD [address] [address] Consulting Physician Nephrology 08/30/18 [place] [address] [facility] [address] [place] [address] Referring Physician Allergy and Immunology 08/30/18 Rene Serrano DO [address] [facility] [address] GAVIN [address] [place] [address] Consulting Physician Orthopedic Surgery 08/30/18 Isaak Horton MD [address] [facility] [address] GAVIN [address] [place] [address] Referring Physician Cardiovascular Disease 05/01/19 Sirena Young MD 2022 [facility] VIZCAINO [facility] [address] [place] [address] Referring Physician Gynecology 05/01/19 Ashia Olivier MD [address] [place] [address] Referring Physician Family Practice 05/01/19 Kamille Olivier MD [address] [place] [address] Referring Physician Gastroenterology 05/01/19 Sindy Bryant NP [address] [place] [address] Nurse Practitioner Urology 05/01/19 Xiao Blair, [address] [place] [address] Product Representative 11/21/23 11/27/23 documented as of this encounter
--- OUTSIDE RECORDS SUMMARY | 2024-05-06 14:01 | XMS_ITS | Encounter Summary ---
Author Organization [facility] Facility Care Team Providers Care Floor Coverings Salesperson Name Role Phone Rabia Rosenthal MD Primary Care Provider + [phone] Bunny Erazo Primary Care Provider + [phone] Kirit Graham MD Unavailable +[phone] Phyllis Fu MD Unavailable +[phone] Raymundo Yoo MD Unavailable +[phone] Rene Serrano DO Unavailable +[phone] Isaak Horton MD Unavailable +[phone] Sirena Young MD Unavailable +[phone] Ashia Olivier MD Unavailable Kamille Olivier MD Unavailable +[phone] Sindy Bryant NP Unavailable +[phone] Juan Coleman DO Primary Care Provider [phone] Ginette Peoples MD Primary Care Provi kristi Xiao BlairW Unavailable +[phone] Encounter Details Date Type Department Care Team (Latest Contact Info) Description 07/11/2017 Orders Only MMG CLINCONV ProviderSrinivasa MD [address] [place] [address] Social History Tobacco Use Types Packs/Day Years Used Date Smoking Tobacco: Never Assessed Comments Unknown Sex and Gender Information Value Date Recorded Sex Assigned at Not on file Legal Sex Female 6:00 PM AUTO TIRE RECAPPER Gender Identity Not on file Sexual Orientation Not on file documented as of this encounter Plan of Treatment Not on file documented as of this encounter Procedures Procedure Name Priority Date/Time Associated Diagnosis Comments CARDIOLOGY REPORT 07/13/2017 12: 00 AM CDT documented in this encounter Results * CARDIOLOGY REPORT (07/13/2017 12:00 AM CDT) Anatomical Region Laterality Modality Other Narrative 07/13/2017 12:00 AM CDT Ordered by an unspecified [...] COVID: Suspected 04/19/2021 04/20/2021 04/20/2021 7:44 PM AUTO TIRE RECAPPER COVID: Suspected 06/15/2021 06/15/2021 06/15/2021 5:09 PM CDT COVID: Suspected 08/10/2021 08/10/2021 08/10/2021 9:27 AM CDT COVID: Suspected 10/09/2021 10/09/2021 10/09/2021 9:53 PM CDT COVID: Suspected 06/23/2022 06/23/2022 06/23/2022 1:16 PM CDT COVID: Suspected 04/24/2023 04/24/2023 04/24/2023 2:33 PM AUTO TIRE RECAPPER COVID: Suspected 04/24/2023 04/24/2023 04/24/2023 7:57 PM AUTO TIRE RECAPPER COVID: Suspected 06/28/2023 06/28/2023 06/28/2023 2:26 PM CDT COVID: Suspected 07/01/2023 07/01/2023 07/01/2023 8:57 AM CDT COVID19 07/01/2023 07/01/2023 07/11/2023 3:05 AM CDT COVID: Recovered Comment:Added based on recent COVID infection. 07/11/2023 07/11/2023 10/09/2023 3:07 AM C DT COVID: Suspected 12/27/2023 12/27/2023 12/27/2023 3:07 PM CDT COVID: Suspected 02/05/2024 02/05/2024 02/05/2024 7:45 PM AUTO TIRE RECAPPER documented as of this encounter Care Teams Floor Coverings Salesperson Relationship Specialty Start Date End Date Rabia Rosenthal MD [address] [address] PCP - General 05/29/18 07/25/18 Bunny Erazo PA [address] [place] [address] [phone] PCP - General 07/26/18 11/13/19 Juan Coleman DO [address] [place] [address] [phone] PCP - General Family Medicine 11/14/19 11/26/19 Ginette Peoples MD [address] [place], [place] [phone] PCP - General Family Medicine 11/27/19 Kirit Graham MD [address] [place] [address] [id number] Consulting Physician Interventional Cardiology 08/30/18 04/30/19 Phyllis Fu MD [address] [address] Consulting Physician Nephrology 08/30/18 [place] [address] [facility] [address] [place] [address] Referring Physician Allergy and Immunology 08/30/18 Rene Serrano DO [address] [facility] [address] G[address] [place] [address] Consulting Physician Orthopedic Surgery 08/30/18 Isaak Horton MD [address] [facility] [address] [place] [address] Referring Physician Cardiovascular Disease 05/01/19 Sirena Young MD 2022 [facility]CA[address] [facility] [address] [place] [address] Referring Physician Gynecology 05/01/19 Ashia Olivier MD [address] [place] [address] Referring Physician Family Practice 05/01/19 Kamille Olivier MD [address] [place] [address] Referring Physician Gastroenterology 05/01/19 Sindy Bryant NP [address] [place] [address] Nurse Practitioner Urology 05/01/19 Xiao Blair, [address] [place] [address] Beauty Consultant 11/21/23 11/27/23 documented as of this encounter
--- OUTSIDE RECORDS SUMMARY | 2024-05-06 14:01 | XMS_ITS | Clinical Summary ---
Author Organization [facility] Address Critical access hospital6 [facility] [place] [address] [place] [address] Care Team Providers Care Clinical Medical Transcriptionist Name Role Phone Ginette Peoples MD Primary Care Provider Kamille Olivier MD Unavailable [phone] Phyllis Fu MD Unavailable [phone] Sirena Young MD Unavailable Janice Raymond Unavailable [phone] Sindy Bryant NP Unavailable [phone] Allergies Active Allergy Reactions Criticality Noted Date Comments Ciprofloxacin Unknown,Other (see comment) Low 07/15/2018 lightheadedness Evolocumab Other (see comment) Low 09/30/2020 Back pain and bladder issues, DEPRESSION Evolocumab Other (see comment) 09/30/2020 Ezetimibe Other (see comment) Medium 08/30/2018 fever and joint pain Lisinopril Cough Low 11/30/2023 Metformin GI Upset Low 07/15/2018 GI upset Metoprolol Other (see comment) Low 09/30/2020 Out of body sensation Molds & Smuts Other (see comment) 07/10/2022 Trees too Nitrofurantoin Unknown 07/15/2018 Sulfa Antibiotics Hives Medium 07/15/2018 hives Medications aspirin EC (ASPIRIN EC) 81 MG tablet Take 81 mg by mouth daily. 1 Active levothyroxine 75 MCG tablet Take 75 mcg by mouth daily. 1 Active empagliflozin (JARDIANCE) 10 MG tablet Take 10 mg by mouth daily. 0 Active montelukast 10 MG tablet Take 10 mg by mouth every evening. 0 Active isosorbide mononitrate ER 30 MG 24 hr tablet Take 30 mg by mouth every evening. 1 Active valACYclovir 500 MG tablet Take 500 mg by mouth every evening. Active hyoscyamine (HYOSCYAMINE) 0.[address] 1 tablet under the tongue 4 (four) times daily as needed. Active methocarbamol 500 MG tablet methocarbamol 500 mg tablet 0 Active clotrimazole-be tamethasone cream clotrimazole-beta methasone 1 %-0.05 % topical cream Active albuterol sulfate HFA (VENTOLIN HFA) 108 (90 Base) MCG/ACT inhaler Ventolin HFA 90 mcg/actuation aerosol inhaler Active probiotic capsule daily. Active Loratadine 10 MG Cap Take 1 capsule by mouth daily. Active Multiple Vitamin (MULTIVITAMIN) capsule Rx: Multivitamins - Capsule Active vitamin E 400 UNIT capsule 400 Units daily. Active fluticasone propionate 50 MCG/ACT nasal spray 1 spray by Nasal route. Active guaiFENesin ER 1200 MG TABLET SR 12 HR 12 hr tablet Take 600 mg by mouth daily. Active Blood Pressure Monitor Kit Take blood pressure daily and report to office nurse. DX: hypotension 1 kit 2 Active hydroCHLOROthia zide (MICROZIDE) 12.5 MG tablet Take 1 tablet (12.5 mg total) by mouth every morning. 30 tablet 2 Active lidocaine (LIDODERM) 5 % Place 1 patch onto the skin daily. Remove & Discard patch within 12 hours or as directed by MD Active SYMBICORT 160-4.5 MCG/ACT inhaler Inhale 2 puffs into the lungs 2 (two) times daily. 3 Active azelastine (ASTELIN) 0.1 % nasal spray SPRAY 2 SPRAYS INTO EACH NOSTRIL EVERY DAY FOR 30 DAYS 4 Active benzonatate (TESSALON) 200 MG capsule TAKE 1 CAPSULE (200 MG TOTAL) BY MOUTH 3 (THREE) TIMES A DAY NEEDED FOR COUGH FOR UP TO 7 DAYS. 4 Active bisoprolol (ZEBETA) 5 MG tablet TAKE 1 TABLET (5 MG TOTAL) BY MOUTH DAILY. 90 tablet 1 4 Active busPIRone (BUSPAR) 5 MG tablet Take 1 tablet (5 mg total) by mouth 2 (two) times daily. 4 Active hydrOXYzine (ATARAX) 10 MG tablet Take 1 tablet (10 mg total) by mouth daily as needed. 4 Active ibuprofen (MOTRIN) 600 MG tablet Take 1 tablet (600 mg total) by mouth every 8 (eight) hours as needed. 4 Active rosuvastatin (CRESTOR) 40 MG tablet TAKE 1 TABLET BY MOUTH EVERYDAY AT BEDTIME 90 tablet 1 4 Active Active Problems Problem Noted Date Diagnosed Date Bilateral carotid artery stenosis 11/10/2021 Chest pain 03/11/2019 Mitral valve annular calcification 03/11/2019 Vitamin D deficiency 12/23/2018 Aortic atherosclerosis 08/08/2016 Overview (07/10/2022): Noted on transesophageal echocardiogram, goal LDL should be less than 70 mg/dL. Last Assessment & Plan: Chronic, stable Continue crestor Tachycardia 06/26/2016 Overview (09/30/2020): Sinus tachycardia frequently about 35% of the time on a 24-hour Holter monitor done on 05/30/2016 controlled on bisoprolol Hypothyroidism 10/13/2015 Overview (09/30/2020): 11/2019 - labs normal Last Assessment & Plan: Labs normal 11/2019 Continue current regimen Type 2 diabetes mellitus (CMS/HCC HHS/HCC) Hypertension Dyslipidemia Coronary artery disease Chronic cystitis with hematuria Asthma (HHS/HCC) Anxiety and depression Hx of blood clots Encounters Date Type Department Care Team Description 04/22/2024 Telephone [facility] [address], [address] [address] Claudia Loera RN Concerns from Last 3 Months Immunizations Name Administration Dates Next Due Flucelvax 6 Months+ (Prefilled Syringe) 01/19/20 18 Influenza (Generic) 12/31/2020 Influenza Adult (Generic) 03/04/2022,01/02/2020, 03/08/2019 PFIZER COVID-19 (ORIGINAL FO RMULATION, PURPLE CAP) mRNA, LNP-S, PF, 30 MCG/0.3 ML DOSE 06/24/2020,06/01/2020 Pneumococcal (Pneumovax 23) 02/01/2018, 4 Pneumococcal (Prevnar 20) 05/25/2023 Shingrix 11/14/2019,05/30/2019 Tdap (Boostrix) 11/10/2021 Tdap (Generic) 04/30/2013 Family History Medical History Relation Comments Diabetes Brother Glaucoma Brother Heart Attack Brother Stroke Brother Heart Attack Father carotid stenois, angioplasty Father smoker Father Heart Maternal Grandfather Kidney Disease Maternal Grandfather Glaucoma Maternal Grandmother Lung Cancer Mother lymphoma Mother smoker Mother Heart Attack Paternal Grandfather Stroke Paternal Grandmother Relation Status Comments Brother (Age 65) Father (Age 69) Maternal Grandfather Maternal Grandmother (Age 77) Mother (Age 50) [place] [employer] Paternal Grandfather (Age 67) Paternal Grandmother (Age 62) Sister Alive Social History Tobacco Use Types Packs/Day Years Used Date Smoking Tobacco: Never Smokeless Tobacco: Never Tobacco Cessation:Counseling Given: Not Answered Alcohol Use Standard Drinks/Week Comments Not Currently 0 (1 standard drink = 0.6 oz pur e alcohol) Comments No Sex and Gender Information Value Date Recorded Sex Assigned at Not on file Legal Sex Female 7:07 PM CDT Gender Identity Not on file Sexual Orientation Not on file 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 Not on file Not on f ile Last Filed Vital Signs Vital Sign Reading Time Taken Comments Blood Pressure 137/80 01/30/2024 2:23 PM CDT Pulse 90 01/30/2024 2:23 PM CDT Temperature 36.7 ??C (98 ??F) 11/17/2021 10:17 AM CDT Respiratory Rate 20 11/17/2021 10:15 AM CDT Oxygen Saturation 96% 01/30/2024 2:23 PM CDT Inhaled Oxygen Concentration - - Weight 68.5 kg (151 lb) 01/30/2024 2:23 PM CDT Height 160 cm (5' 3 ) 01/30/2024 2:23 PM CDT Body Mass Index 26.75 01/30/2024 2:23 PM CDT Plan of Treatment Upcoming Encounters Date Type Department Care Team (Late st Contact Info) Description 08/06/2024 3:45 PM CDT Office Visit [facility], [facility] [address] [place] [address] Cata Dyer MD [facility]. [facility] [address] [place], [place] [id number] Health Maintenance Due Date Last Done Comments ASCVD LDL 1955 Colorectal Cancer Screening Colonoscopy (10 Years) 1955 Kidney Health Evaluation 1957 Diabetes: Retinopathy Eye Exam 12/06/1975 Hepatitis C 12/06/1975 Mammogram Screening 1997 RSV Immunization or 60+ Years (1 - Risk 60-74 years 1-dose series) 2017 Dexa Scan (General) 2022 12/21/2014 Lipid Panel 07/23/2023 07/22/2022, 06/20/2021 COVID-19 Vaccine (3 - season) 2023 06/24/2020, 06/01/2020 Influenza Adult (#1) 2024 03/04/2022, 12/31/2020, 01/02/2020, Additional history exists Hemoglobin A1C 05/25/2024 11/23/2023, 07/02, 06/20/2021, Additional history exists DTaP, Tdap and Td Vaccines (3 - Td or Tdap) 11/11/2031 11/10/2021, 04/30/2013 Zoster Vaccines Completed 11/14/2019, 05/30/2019 Pneumococcal Vaccine: 65+ Years Completed 05/25/2023, 02/01/2018, 04/30/2013 Meningococcal B Vaccine Aged Out No l onger eligible based on patient's age to complete this topic Meningococcal Vaccine Aged Out No faith myrna eligible based on patient's age to complete this topic RSV Immunizations Under 20 Months Aged Out No longer eligible based on patient's age to complete this topic Insurance [facility] Care Teams Clinical Medical Transcriptionist Relationship Specialty Start Date End Date Ginette Peoples MD [address] [facility] [address] [place] [address] PCP - General FAMILY PRACTICE 08/17/20 Kamille Olivier MD [address] [facility] [address] [place] [address] Consulting Physician GASTROENTEROLOGY 09/30/20 Phyllis Fu MD [address] [facility] [address] [place] [address] Consulting Physician NEPHROLOGY 09/30/20 Sirena Young MD [address] [facility] [address] [place] [address] Consulting Physician OBGYN 09/30/20 Janice Raymond PA [address] [place] [address] [address] [place] [address] Consulting Physician PHYSICIAN INSPECTOR ELEVATORS 09/30/20 Sindy Bryant NP [address] [place] [address] Nurse Practitioner NURSE PRACTITIONER ADULT HEALTH 09/30/20
--- OUTSIDE RECORDS SUMMARY | 2024-05-06 14:01 | XMS_ITS | Encounter Summary ---
Author Organization [facility] Facility Care Team Providers Care Sanitation Director Name Role Phone Rabia Rosenthal MD Primary Care Provider + [phone] Bunny Erazo Primary Care Provider + [phone] Kirit Graham MD Unavailable [phone] Phyllis Fu MD Unavailable [phone] Raymundo Yoo MD Unavailable [phone] Rene Serrano DO Unavailable [phone] Isaak Horton MD Unavailable [phone] Sirena Young MD Unavailable [phone] Ashia Olivier MD Unavailable Kamille Olivier MD Unavailable [phone] Sindy Bryant NP Unavailable [phone] Juan Coleman DO Primary Care Provider [phone] Ginette Peoples MD Primary Care Provi kristi Xiao BlairW Unavailable [phone] Encounter Details Date Type Department Care Team (Latest Contact Info) Description 09/06/2016 Orders Only [facility] CLINCONV ProviderSrinivasa MD [address] [place] [address] Social History Tobacco Use Types Packs/Day Years Used Date Smoking Tobacco: Never Assessed Comments Unknown Sex and Gender Information Value Date Recorded Sex Assigned at Not on file Legal Sex Female 6:00 PM PUBLIC HEALTH TECHNICIAN Gender Identity Not on file Sexual Orientation Not on file documented as of this encounter Plan of Treatment Not on file documented as of this encounter Procedures Procedure Name Priority Date/Time Associated Diagnosis Comments COLONOSCOPY - SCAN 09/06/2016 12 :00 AM CDT documented in this encounter Results * COLONOSCOPY - SCAN (09/06/2016 12:00 AM CDT) Narrative 09/06/2016 12:00 AM CDT Ordered by an unspecified [...] COVID: Suspected 04/19/2021 04/20/2021 04/20/2021 7:44 PM PUBLIC HEALTH TECHNICIAN COVID: Suspected 06/15/2021 06/15/2021 06/15/2021 5:09 PM CDT COVID: Suspected 08/10/2021 08/10/2021 08/10/2021 9:27 AM CDT COVID: Suspected 10/09/2021 10/09/2021 10/09/2021 9:53 PM CDT COVID: Suspected 06/23/2022 06/23/2022 06/23/2022 1:16 PM CDT COVID: Suspected 04/24/2023 04/24/2023 04/24/2023 2:33 PM PUBLIC HEALTH TECHNICIAN COVID: Suspected 04/24/2023 04/24/2023 04/24/2023 7:57 PM PUBLIC HEALTH TECHNICIAN COVID: Suspected 06/28/2023 06/28/2023 06/28/2023 2:26 PM CDT COVID: Suspected 07/01/2023 07/01/2023 07/01/2023 8:57 AM CDT COVID19 07/01/2023 07/01/2023 07/11/2023 3:0 5 AM CDT COVID: Recovered Comment:Added based on recent COVID infection. 07/11/2023 07/11/2023 10/09/2023 3:07 AM C DT COVID: Suspected 12/27/2023 12/27/2023 12/27/2023 3:07 PM CDT COVID: Suspected 02/05/2024 02/05/2024 02/05/2024 7:45 PM PUBLIC HEALTH TECHNICIAN documented as of this encounter Care Teams Sanitation Director Relationship Specialty Start Date End Date Rabia Rosenthal MD [address] [address] PCP - General 05/29/18 07/25/18 Bunny Erazo PA [address] [place] [address] [id number] PCP - General 07/26/18 11/13/19 Juan Coleman DO [address] [place] [id number] PCP - General Family Medicine 11/14/19 11/26/19 Ginette Peoples MD [address] [place], [place] [address] PCP - General Family Medicine 11/27/19 Kirit Graham MD [address] [place] [address] Consulting Physician Interventional Cardiology 08/30/18 04/30/19 Phyllis Fu MD [address] [address] Consulting Physician Nephrology 08/30/18 [place] [address] [address] [facility] [address] [place] [address] Referring Physician Allergy and Immunology 08/30/18 Rene Serrano DO [address] [facility] [address] [place] [address] Consulting Physician Orthopedic Surgery 08/30/18 Isaak Horton MD [address] [facility] [address] [place] [address] Referring Physician Cardiovascular Disease 05/01/19 Sirena Young MD [address] [facility] [address] [place] [address] Referring Physician Gynecology 05/01/19 Ashia Olivier MD [address] [place] [address] Referring Physician Family Practice 05/01/19 Kamille Olivier MD [address] [place] [address] Referring Physician Gastroenterology 05/01/19 Sindy Bryant, [place] [address] [place], [place] [id number] Nurse Practitioner Urology 05/01/19 Xiao Blair, [address] [place] [address] Cooperage Shop Supervisor 11/21/23 11/27/23 documented as of this encounter
--- OUTSIDE RECORDS SUMMARY | 2024-05-06 14:01 | XMS_ITS | Encounter Summary ---
Author Organization [facility] Facility Care Team Providers Care Hand Ii Thermal Cutter Name Role Phone Rabia Rosenthal MD Primary Care Provider + [phone] Bunny Erazo Primary Care Provider + [phone] Kirit Graham MD Unavailable [phone] Phyllis Fu MD Unavailable [phone] Raymundo Yoo MD Unavailable [phone] Rene Serrano DO Unavailable [phone] Isaak Horton MD Unavailable [phone] Sirena Young MD Unavailable [phone] Ashia Olivier MD Unavailable Kamille Olivier MD Unavailable [phone] Sindy Bryant NP Unavailable [phone] Juan Coleman DO Primary Care Provider [phone] Ginette Peoples MD Primary Care Provi kristi Xiao BlairW Unavailable [phone] Encounter Details Date Type Department Care Team (Latest Contact Info) Description 12/16/2016 Orders Only [facility] CLINCONV ProviderSrinivasa MD [address] [place] [address] Social History Tobacco Use Types Packs/Day Years Used Date Smoking Tobacco: Never Assessed Comments Unknown Sex and Gender Information Value Date Recorded Sex Assigned at Not on file Legal Sex Female 6:00 PM FRAME EXPANDER Gender Identity Not on file Sexual Orientation Not on file documented as of this encounter Plan of Treatment Not on file documented as of this encounter Procedures Procedure Name Priority Date/Time Associated Diagnosis Comments SCAN - LABS 12/16/2016 12:00 AM CDT documented in this encounter Results * SCAN - LABS (12/16/2016 12:00 AM CDT) Narrative 12/16/2016 12:00 AM CDT Ordered by an unspecified [...] COVID: Suspected 04/19/2021 04/20/2021 04/20/2021 7:44 PM FRAME EXPANDER COVID: Suspected 06/15/2021 06/15/2021 06/15/2021 5:09 PM CDT COVID: Suspected 08/10/2021 08/10/2021 08/10/2021 9:27 AM CDT COVID: Suspected 10/09/2021 10/09/2021 10/09/2021 9:53 PM CDT COVID: Suspected 06/23/2022 06/23/2022 06/23/2022 1:16 PM CDT COVID: Suspected 04/24/2023 04/24/2023 04/24/2023 2:33 PM FRAME EXPANDER COVID: Suspected 04/24/2023 04/24/2023 04/24/2023 7:57 PM FRAME EXPANDER COVID: Suspected 06/28/2023 06/28/2023 06/28/2023 2:26 PM CDT COVID: Suspected 07/01/2023 07/01/2023 07/01/2023 8:57 AM CDT COVID19 07/01/2023 07/01/2023 07/11/2023 3:05 AM CDT COVID: Recovered Comment:Added based on recent COVID infection. 07/11/2023 07/11/2023 10/09/2023 3:07 AM C DT COVID: Suspected 12/27/2023 12/27/2023 12/27/2023 3:07 PM CDT COVID: Suspected 02/05/2024 02/05/2024 02/05/2024 7:45 PM FRAME EXPANDER documented as of this encounter Care Teams Hand Ii Thermal Cutter Relationship Specialty Start Date End Date Rabia Rosenthal MD [address] [address] PCP - General 05/29/18 07/25/18 Bunny Erazo PA [address] [place] [address] PCP - General 07/26/18 11/13/19 Juan Coleman DO [address] [place] [id number] PCP - General Family Medicine 11/14/19 11/26/19 Ginette Peoples MD [address] [place], [place] [address] PCP - General Family Medicine 11/27/19 Kirit Graham MD [address] [place] [id number] Consulting Physician Interventional Cardiology 08/30/18 04/30/19 Phyllis Fu MD [address] [address] Consulting Physician Nephrology 08/30/18 [place] [address] [address] [facility] [address] [place] [address] Referring Physician Allergy and Immunology 08/30/18 Rene Serrano DO [address] [facility] [address] [place] [address] Consulting Physician Orthopedic Surgery 08/30/18 Isaak Horton MD [address] [facility] [address] [place] [address] Referring Physician Cardiovascular Disease 05/01/19 Sirena Young MD [address] [facility] [address] [place] [address] Referring Physician Gynecology 05/01/19 Ashia Olivier MD [address] [place] [address] Referring Physician Family Practice 05/01/19 Kamille Olivier MD [address] [place] [address] Referring Physician Gastroenterology 05/01/19 Sindy Bryant, [place] [address] [place] [address] Nurse Practitioner Urology 05/01/19 Xiao Blair, [address] [place] [address] Field Education Coordinator 11/21/23 11/27/23 documented as of this encounter
--- OUTSIDE RECORDS SUMMARY | 2024-05-06 14:01 | XMS_ITS | Clinical Summary ---
Author Organization [facility] Address [address] [place] [address] Care Team Providers Care Museum Or Zoo Director Name Role Phone Bunny Erazo PA-C Primary Care Provider [phone] Source Comments [facility],non-owned Affiliates and Associated Physician Practices is amultiple site organization consisting of ambulatory clinics and hospital sitesin [place], [place], [place] and [place]. This disclosure is being madepursuant to the Care Everywhere program and may not contain all information available regarding this patient. Last updated 17.[facility] Allergies Active Allergy Reactions Criticality Noted Date [...] 11/23/2018 2:48 PM CDT Plan of Treatment Health Maintenance Due Date Last Done Comments BONE DENSITY TESTING 1955 COLOGUARD (AGES 45-75) - COL ON CA SCREENING 1957 COLON MONITORING 1957 COLONOSCOPY - COLON CA SCREENING 1957 CT COLONOGRAPHY - COLON CA SCREENING 1955 Colorectal Cancer Screening 1957 FIT - COLON CA SCREENING 1957 FLEX SIG - COLON CA SCREENING 1957 MAMMOGRAM 1957 HEPATITIS C SCREENING 12/01/1975 DTAP/TDAP/TD VACCINES (1 - Tdap) 1976 PNEUMOCOCCAL VACCINE 50+ (1 of 1 - PCV) 12/06/2007 ZOSTER VACCINE (1 of 2) 12/06/2007 Respiratory Syncytial Virus (RSV) Vaccine Pt: or over 60 yrs (1 - Risk 60-74 years 1-dose series) 2017 SCREENING FOR DIABETES 11/23/2018 COVID-19 VACCINE ( - 2023-2 5 season) 2023 INFLUENZA VACCINE (#1) 2023 01/19/2018 DEPRESSION SCREENING 04/02/2024 HEPATITIS B VACCINE Aged Out No longe r eligible based on patient's age to complete this topic HIB VACCINE Aged Out No longer eligi ble based on patient's age to complete this topic HPV VACCINE Aged Out No longer eligi ble based on patient's age to complete this topic MENINGOCOCCAL (Group B) VACCINE Aged Out No longer eligible based on patient's age to complete this topic MENINGOCOCCAL VACCINE Aged Out No faith myrna eligible based on patient's age to complete this topic Care Teams Museum Or Zoo Director Relationship Specialty Start Date End Date Bunny Erazo PA-C [address] [facility] [place] [address] PCP - General 11/23/18
--- OUTSIDE RECORDS SUMMARY | 2024-05-06 14:01 | XMS_ITS | Encounter Summary ---
Author Organization [facility] Facility Care Team Providers Care Occupational Health Nurse Supervisor Name Role Phone Rabia Rosenthal MD Primary Care Provider + [phone] Bunny Erazo Primary Care Provider + [phone] Kirit Graham MD Unavailable [phone] Phyllis Fu MD Unavailable [phone] Raymundo Yoo MD Unavailable [phone] Rene Serrano DO Unavailable +[phone] Isaak Horton MD Unavailable +[phone] Sirena Young MD Unavailable [phone] Ashia Olivier MD Unavailable Kamille Olivier MD Unavailable +[phone] Sindy Bryant NP Unavailable [phone] Juan Coleman DO Primary Care Provider +[phone] Ginette Peoples MD Primary Care Provi kristi Xiao BlairW Unavailable +[phone] Encounter Details Date Type Department Care Team (Latest Contact Info) Description 05/25/2016 Orders Only [facility] CLINCONV ProviderSrinivasa MD [address] [place] [id number] Social History Tobacco Use Types Packs/Day Years Used Date Smoking Tobacco: Never Assessed Comments Unknown Sex and Gender Information Value Date Recorded Sex Assigned at Not on file Legal Sex Female 6:00 PM FOOD MIXER Gender Identity Not on file Sexual Orientation Not on file documented as of this encounter Plan of Treatment Not on file documented as of this encounter Procedures Procedure Name Priority Date/Time Associated Diagnosis Comments PROCEDURE - RESULT 05/30/2016 12 :00 AM FOOD MIXER documented in this encounter Results * PROCEDURE - RESULT (05/30/2016 12:00 AM FOOD MIXER) Narrative 05/30/2016 12:00 AM FOOD MIXER Ordered by an unspecified provider. us Historical Provider Final Res ult documented in this encounter Visit Diagnoses Not on filedocumented in this encounter Additional Health Concerns Infection Onset Date Last Indicated Resolved Time COVID: Suspected 10/29/2020 10/29/2020 10/30/2020 12:16 AM CDT COVID: Suspected 12/09/2020 12/09/2020 12/09/2020 10:04 PM CDT COVID: Suspected 01/17/2021 01/17/2021 01/17/2021 5:45 PM CDT COVID: Suspected 04/19/2021 04/20/2021 04/20/2021 7:44 PM FOOD MIXER COVID: Suspected 06/15/2021 06/15/2021 06/15/2021 5:09 PM CDT COVID: Suspected 08/10/2021 08/10/2021 08/10/2021 9:27 AM CDT COVID: Suspected 10/09/2021 10/09/2021 10/09/2021 9:53 PM CDT COVID: Suspected 06/23/2022 06/23/2022 06/23/2022 1:16 PM CDT COVID: Suspected 04/24/2023 04/24/2023 04/24/2023 2:33 PM FOOD MIXER COVID: Suspected 04/24/2023 04/24/2023 04/24/2023 7:57 PM FOOD MIXER COVID: Suspected 06/28/2023 06/28/2023 06/28/2023 2:26 PM CDT COVID: Suspected 07/01/2023 07/01/2023 07/01/2023 8:57 AM CDT COVID19 07/01/2023 07/01/2023 07/11/2023 3:0 5 AM CDT COVID: Recovered Comment:Added based on recent COVID infection. 07/11/2023 07/11/2023 10/09/2023 3:07 AM C DT COVID: Suspected 12/27/2023 12/27/2023 12/27/2023 3:07 PM CDT COVID: Suspected 02/05/2024 02/05/2024 02/05/2024 7:45 PM FOOD MIXER documented as of this encounter Care Teams Occupational Health Nurse Supervisor Relationship Specialty Start Date End Date Rabia Rosenthal MD [address] [address] PCP - General 05/29/18 07/25/18 Bunny Erazo PA [address] [place] [address] [id number] PCP - General 07/26/18 11/13/19 Juan Coleman DO [address] [place] [address] [id number] PCP - General Family Medicine 11/14/19 11/26/19 Ginette Peoples MD [address] [place], [place] [id number] PCP - General Family Medicine 11/27/19 Kirit Graham MD [address] [place] [address] [id number] Consulting Physician Interventional Cardiology 08/30/18 04/30/19 Phyllis Fu MD [address] [address] Consulting Physician Nephrology 08/30/18 [place] [address] [address] [facility] [address] [place] [address] Referring Physician Allergy and Immunology 08/30/18 Rene Serrano DO [address] [facility] [address] [place] [address] [place] [address] Consulting Physician Orthopedic Surgery 08/30/18 Isaak Horton MD [address] [facility] [address] [place] [address] [place] [address] Referring Physician Cardiovascular Disease 05/01/19 Sirena Young MD [address] [facility] [address] [place] [address] Referring Physician Gynecology 05/01/19 Ashia Olivier MD [address] [place] [address] Referring Physician Family Practice 05/01/19 Kamille Olivier MD [address] [place] [address] Referring Physician Gastroenterology 05/01/19 Sindy Bryant, [place] [address] [place] [address] Nurse Practitioner Urology 05/01/19 Xiao Blair, [address] [place] [address] Manager Product Management 11/21/23 11/27/23 documented as of this encounter
== END 2024-05-06 13:50 | disposition home or self-care (01) ==
PROVIDERS: PCP Obstetrics & Gynecology Gynecology; Visit Provider Obstetrics & Gynecology Gynecology
DX: Z13.820 Encounter for screening for osteoporosis (principal); Z78.0 Asymptomatic menopausal state
CPT/HCPCS: 77080